=== PATIENT | male | born 1935 | race Caucasian/White ===

== ENCOUNTER 2017-02-05 06:06 | Inpatient (IN) | payer MEDICARE ==
[2017-02-05] MEDS ORDERED: Albuterol/Ipratropium NEB.SOL* Albuterol 2.5 MG/Ipratropium 0.5 MG 3 ML INH ONE ×2 (06:27→08:44)
[2017-02-05] MEDS ORDERED: methylPREDNISolone 125 MG* 2 ML VIAL IV ONE ×2 (06:27→08:44)
--- NOTE | 2017-02-05 06:37 | ED ---
Jaquelin Michel Matthew, scribed for Gt Madera MD on 02/05/17 at 0629 . Shortness of Breath - HPI Summary HPI Summary: An 82 y/o male presents to the ED with SOB since 01/31/17, which worsened yesterday. He has a Hx of COPD for the past 2 years. [facility], which will arrive this morning. Associated symptoms include productive cough yellow phlegm, which has been improving. He denies fever. The patient hasn't smoke in 50 years. - History of Current Complaint Time Seen by Provider: 02/05/17 06:19 Hx Obtained From: Patient Onset/Duration: Gradual Onset, Lasting Days, Still Present Timing: Constant Current Severity: Moderate Dyspnea At: Rest Associated Signs & Symptoms: Cough (Productive) - improving - Allergy/Home Medications Allergies/Adverse Reactions: Allergies Allergy/AdvReac Type Severity Reaction Status Date / Time Eggs or Egg-derived Products Allergy Unknown Verified 02/05/17 06:58 Reaction Details Home Medications: Home Medications Albuterol HFA INHALER* [Ventolin HFA Inhaler*] 2 puff INH QID PRN 02/05/17 [ History Confirmed 02/05/17] Aspirin EC Low Dose* [Ecotrin EC Low Dose 81 MG*] 81 mg PO DAILY 02/05/17 [ History Confirmed 02/05/17] Cefdinir cap (NF) [Cefdinir 300 MG cap (NF)] 300 mg PO BID 02/05/17 [History Confirmed 02/05/17] Cholecalciferol TAB* [Vitamin D TAB*] 2,000 units PO DAILY 02/05/17 [History Confirmed 02/05/17] Cyanocobalamin TAB* [Vitamin B12 TAB*] 1,000 mcg PO DAILY 02/05/17 [History Confirmed 02/05/17] Fluorouracil (Topical) [Fluorouracil] 0.5 % TOPICAL QPM 02/05/17 [History Confirmed 02/05/17] Hydrochlorothiazide TAB* [Hydrodiuril TAB*] 25 mg PO QAM 02/05/17 [History Confirmed 02/05/17] Melatonin (NF) [Meladox] 3 mg PO BEDTIME PRN 02/05/17 [History Confirmed ] Mometasone/Formoter 200/5 MDI* [Dulera 200/5 MDI*] 2 puff INH BID 02/05/17 [ History Confirmed 02/05/17] Multivitamins/Minerals TAB* [Theragran/minerals TAB*] 1 tab PO DAILY 02/05/17 [ History Confirmed 02/05/17] Potassium Chlor TAB* [Klor Con ER TAB*] 20 meq PO BID 02/05/17 [History Confirmed 02/05/17] Tiotropium CAP.INH* [Spiriva CAP.INH*] 1 cap.inh INH DAILY 02/05/17 [History Confirmed 02/05/17] amLODIPine TAB* [Norvasc 5 mg TAB*] 2.5 mg PO DAILY 02/05/17 [History Confirmed 02/05/17] PMH/Surg Hx/FS Hx/Imm Hx Cardiovascular History: Reports: Hx Hypertension Respiratory History: Reports: Hx Chronic Obstructive Pulmonary Disease (COPD) Infectious Disease History: No Infectious Disease History: Denies: Traveled Outside the [place] in Last 30 Days - Family History Known Family History: Positive: Hypertension Negative: Diabetes - Social History Alcohol Use: None Substance Use Type: Reports: None Smoking Status (MU): Former Smoker Review of Systems Constitutional: Negative Negative: Fever Eyes: Negative ENT: Negative Cardiovascular: Negative Positive: Shortness Of Breath, Cough - productive - yellow phlegm; improving since onset Gastrointestinal: Negative Genitourinary: Negative Musculoskeletal: Negative Skin: Negative Neurological: Negative Psychological: Normal All Other Systems Reviewed And Are Negative: Yes Physical Exam Triage Information Reviewed: Yes Vital Signs On Initial Exam: Initial Vitals Pulse Ox 93 02/05/17 06:12 Vital Signs Reviewed: Yes Appearance: Positive: Well-Appearing, No Pain Distress Skin: Positive: Warm Head/Face: Positive: Normal Head/Face Inspection Eyes: Positive: AMINTA ENT: Positive: Hearing grossly normal Neck: Positive: Supple Respiratory/Lung Sounds: Positive: Rhonchi - coarse, scattered, Wheezes - scattered exp Cardiovascular: Positive: Normal Abdomen Description: Positive: Nontender, Soft Bowel Sounds: Positive: Present Musculoskeletal: Positive: Strength/ROM Intact Neurological: Positive: Alert, Oriented to Person Place, Time Psychiatric: Positive: Affect/Mood Appropriate - Winder Coma Scale Coma Scale Total: 15 Diagnostics - Vital Signs Vital Signs Temp Pulse Resp BP Pulse Ox 02/05/17 06:21 97.5 F 93 20 145/75 93 02/05/17 06:12 93 - Laboratory Result Diagrams: 02/05/17 06:50 02/05/17 06:50 Lab Statement: Any lab studies that have been ordered have been reviewed, and results considered in the medical decision making process. Course/Dx - Diagnoses Provider Diagnoses: Pneumonia, COPD (chronic obstructive pulmonary disease), Hypoxia Discharge - Discharge Plan Condition: Stable Disposition: ADMITTED TO [facility] Discharge Disposition Comment: The patient is signed out to Dr. Madera pending lab results and CXR The documentation as recorded by the Jaquelin elliott Matthew accurately reflects the service I personally performed and the decisions made by Santy wagoner David, MD.
[2017-02-05 07:03] LABS: Hematocrit 49 % (42-52); Hemoglobin 16.6 g/dl (14.0-18.0); Mean Corpuscular HGB Conc 34 g/dl (31-36); Mean Corpuscular Hemoglobin 29 pg (27-31); Mean Corpuscular Volume 86 fL (80-94); Mean Platelet Volume 10 um3 (7.4-10.4); Red Blood Count 5.74 10^6/ul (4.0-5.4); Red Cell Distribution Width 14 % (10.5-15); White Blood Count 13.3 10^3/ul (3.5-10.8)
[2017-02-05 07:22] LABS: BUN/Creatinine Ratio 15.7 (8-20); Calcium 9.5 mg/dL (8.6-10.3); EGFR Non-African American 81.6 (>60); Globulin 3.2 g/dL (2-4); Total Protein 7.2 g/dL (6.4-8.9)
[2017-02-05 07:36] LABS: Potassium 2.7 mmol/L (3.5-5.0)
[2017-02-05] MEDS ORDERED: Potassium Chlor TAB* 20 MEQ TAB.ER PO ONE ×2 (07:37→11:23)
--- NOTE | 2017-02-05 07:59 | RAD ---
INDICATION: Shortness of breath and cough. COMPARISON: There are no prior studies available for comparison. TECHNIQUE: Dual-energy PA and lateral views of the chest were obtained. FINDINGS: The heart is within normal limits in size. Mediastinal and hilar contours appear within normal limits. The lungs are hyperinflated with flattening of the diaphragms consistent with chronic obstructive pulmonary disease. There are small bibasilar infiltrates. No pleural effusion is seen. There is a small nodular density which projects above the right lung base measuring 1.2 cm in size. This may represent a nipple shadow although a pulmonary nodule cannot be excluded. The results of this examination were discussed with Dr. Vargas. IMPRESSION: 1. COPD AND SMALL BIBASILAR INFILTRATES. 2. NIPPLE SHADOW VERSUS PULMONARY NODULE ON THE RIGHT SIDE NOTED ABOVE. RECOMMEND A REPEAT CHEST X-RAY STUDY WITH NIPPLE MARKERS OR A CT OF THE CHEST FOR FURTHER EVALUATION.
[2017-02-05] MEDS ORDERED: Azithromycin IV(*) 500 MG in NS 0.9% 250 ML* 250 ML IVPB ONE (08:43)
[2017-02-05] MEDS ORDERED: cefTRIAXone(*) 1 GM in NS 0.9% 50 ML* 50 ML IVPB ONE (08:43)
[2017-02-05 09:03] LABS: C Reactive Protein 33.03 mg/L (< 5.00)
[2017-02-05 09:08] LABS: Troponin I 0.01 ng/mL (<0.04)
--- NOTE | 2017-02-05 10:52 | ED ---
Paul Michel Auryana, lindseyibed for Rajan Vargas MD on 02/05/17 at 0844 . Progress - Progress Note Progress Note: Sign out form Dr. Madera at 07:00 pending CXR 82 year old male comes in with productive cough, wheezing, and increase SOB starting 5 days ago worse since last night. He denies any fevers. No nebulizer but has multiple inhalers. He is currently on HCT (diuretic), ASA, and recently started amlodipine for HTN. PMHx is significant for HTN and COPD with history of bronchitis. - Results/Orders Results/Orders: LABS: WBC elevated (13.3) Potassium low - 2.7 (states history - on 2 doses of potassium) CRP- elevated (33.03) CHEST X-RAY IMPRESSION: 1. COPD AND SMALL BIBASILAR INFILTRATES. 2. NIPPLE SHADOW VERSUS PULMONARY NODULE ON THE RIGHT SIDE NOTED ABOVE. RECOMMEND A REPEAT CHEST X-RAY STUDY WITH NIPPLE MARKERS OR A CT OF THE CHEST FOR FURTHER EVALUATION. EKG (08:24): NSR at 83 BPM. 08:41 provider in to see patient - will order IV ABX. Patient would prefer to be discharged if possible - will road test and assess condition/O2 sat to determine disposition 10:45 Road test - still symptomatic - EKG/XRAY/CT EKG: NSR - at 83 BPM Course/Dx - Course Course Of Treatment: IMPROVED IN ED. WHEN ATTEMPTED AMBULATION; O2 SAT 85% RA AND SOB. ADMIT HOSPITALIST STABLE. - Diagnoses Provider Diagnoses: Pneumonia, COPD (chronic obstructive pulmonary disease), Hypoxia - Provider Notifications Discussed Care Of Patient With: Dr. Stephens The documentation as recorded by the Paul elliott Auryana accurately reflects the service I personally performed and the decisions made by me, Rajan Vargas MD.
[2017-02-05] MEDS ORDERED: Acetaminophen TAB* 325 MG PO PRN (11:23)
[2017-02-05] MEDS ORDERED: Ondansetron INJ* 2 MG/ML VIAL IV PRN (11:23)
[2017-02-05] MEDS ORDERED: Albuterol 2.5 MG/3 ML NEB.SOL* (0.083%) INH PRN (11:23)
[2017-02-05] MEDS ORDERED: cefTRIAXone VIAL(*) 1,000 MG in NS 0.9% 50 ML* 50 ML IVPB SCH (11:24)
[2017-02-05] MEDS ORDERED: NS 0.9% 1000 ML* 1,000 ML IV SCH (11:30)
[2017-02-05] MEDS ORDERED: Iohexol 300* (CONTRAST) 10 ML SDV IV ONE (11:56)
[2017-02-05] MEDS ORDERED: Azithromycin IV(*) 500 MG in NS 0.9% 250 ML* 250 ML IVPB SCH (12:00)
[2017-02-05] MEDS: Albuterol/Ipratropium NEB.SOL* Albuterol 2.5 MG/Ipratropium 0.5 MG 3 ML INH SCH ×3 (12:09→21:45)
--- NOTE | 2017-02-05 12:27 | RAD ---
HISTORY: Cough, history of smoking COMPARISONS: Chest x-ray dated February 05, 2017 TECHNIQUE: Multiple contiguous axial CT scans of the chest were obtained with intravenous contrast. Coronal and sagittal multiplanar reformations are also submitted for review. FINDINGS: NECK AND THYROID: The lower neck and thyroid are unremarkable. CHEST WALL: There is no lower cervical, axillary, or supraclavicular lymphadenopathy by size criteria. HEART AND PERICARDIUM: The heart is unremarkable. AORTA AND PULMONARY VASCULATURE: The aorta and pulmonary vasculature are normal. MEDIASTINUM: There is no mediastinal lymphadenopathy by size criteria. CARLO: There is no hilar lymphadenopathy by size criteria. AIRWAY AND ESOPHAGUS: The airway is unremarkable, without endobronchial filling defect. The esophagus is grossly normal. LUNG PARENCHYMA: There is diffuse extensive centrilobular and panacinar emphysematous change. The density noted on chest x-ray corresponds to a nipple; however, there are other pulmonary parenchymal nodules described below: In the right middle lobe, there is a 0.6 cm nodule on axial image 39. On axial image 40, there is a 0.7 cm nodule of the right middle lobe. On axial image 50, there is a 0.5 cm nodule of the right lower lobe. On axial image 52, there is a 0.8 cm nodule of the right lower lobe PLEURA: No pleural abnormalities are noted. UPPER ABDOMEN: The upper abdomen is unremarkable. BONES AND SOFT TISSUES: Degenerative changes are noted of the spine OTHER: None. IMPRESSION: 1. EMPHYSEMA. 2. MULTIPLE PULMONARY PARENCHYMAL NODULES OF THE RIGHT MID AND LOWER LUNG MEASURING UP TO 0.8 CM IN SIZE. THE RECOMMENDATIONS FOR FOLLOWUP AND MANAGEMENT OF AN INCIDENTALLY DETECTED PULMONARY NODULE GREATER THAN 6 MM BUT LESS THAN OR EQUAL TO 8 MM IN SIZE, IN A PATIENT WITHOUT A HISTORY OF MALIGNANCY, INCLUDE FOLLOWUP CT IN 6-12 MONTHS, THEN AGAIN AT 18-24 MONTHS FOR A LOW-RISK PATIENT OR FOLLOWUP CT IN 3-6 MONTHS, THEN 9-12, THEN AGAIN AT 24 MONTHS FOR A HIGH RISK PATIENT. NOTES: SIZE = AVERAGE LENGTH AND WIDTH; HIGH RISK IS DEFINED A HISTORY OF SMOKING OR OTHER KNOW RISK FACTORS FOR LUNG CANCER; LOW RISK IS DEFINED MINIMAL OR ABSENT HISTORY OF SMOKING OR OTHER KNOWN RISK FACTORS. NODULES WITH A GROUND GLASS COMPONENT MAY REQUIRE LONGER FOLLOW UP TO EXCLUDE INDOLENT ADENOCARCINOMA.
--- NOTE | 2017-02-05 12:28 | HP ---
ADDENDUM TO HISTORY AND PHYSICAL * DATE OF ADMISSION: 02/05/2017. HISTORY OF PRESENT ILLNESS: Mr. Schneider is an 82-year-old male with a history of COPD who presented to the hospital complaining of shortness of breath and cough and has been diagnosed with COPD exacerbation and pneumonia. For further details of the patient's presentation, please see the history and physical dictated by Damien Brar NP on 02/05/2017 with which I agree. [id number]/[facility] #: [id number] [place]
[2017-02-05] MEDS ORDERED: NS 0.9% 250 ML* 250 ML ONE (15:06)
[2017-02-05] MEDS: Heparin VIAL(*) 5000 UNITS/ML VIAL (FIVE THOUSAND) SUBCUT SCH ×2 (15:11→20:50)
[2017-02-05] MEDS: predniSONE TAB* 20 MG PO SCH (15:11)
[2017-02-05] MEDS: amLODIPine TAB* 5 MG PO SCH (15:12)
[2017-02-05] MEDS: KCL 10 MEQ/50 ML IVPREMIX* 10 MEQ/50 ML BAG IV SCH ×3 (15:25→18:20)
[2017-02-05] MEDS ORDERED: KCL 10 MEQ/50 ML IVPREMIX* 10 MEQ/50 ML BAG ONE (18:16)
--- NOTE | 2017-02-05 21:23 | HP ---
ATTENDING PHYSICIAN'S ADDENDUM NOW INCLUDED ON THIS REPORT HISTORY AND PHYSICAL: DATE OF ADMISSION: 02/05/17 PRIMARY CARE PROVIDER: Dr. Ryan. MY ATTENDING PHYSICIAN WHILE IN THE HOSPITAL: Dr. Joleen Stephens * (report dictated by Andre Brar NP) CHIEF COMPLAINT: 1. Cough. 2. Shortness of breath. HISTORY OF PRESENT ILLNESS: Mr. Schneider is an 82-year-old male patient, who has a history of hypertension and COPD comes into the ER today stating that since last week, he started out having a sore throat, went to his primary. He says everything checked out fine there. He was doing well, but despite this, he had had progressive worsening symptoms throughout the week after seeing his primary last week, basically since last Saturday. He started out with cough on and Saturday, bringing up mucopurulent-type sputum, yellow in nature, then over the weekend, he got progressively more and more short of breath to the point where today he woke up in middle of the night feeling very winded in his words. He worsened when he had felt all weak. He summoned his daughter who lives with him and she brought him into the hospital. There have been no reports of arthralgias or myalgias. There have been no reports of fevers or chills, and he said it does hurt in his chest when he coughs. He says his appetite has been down. He has been feeling more weak. He has been trying to eat and drink as much as he can. However, despite this, he is still continuing not to improve. The patient was evaluated in the ER, ultimately it was found that he had an elevated white count. There was x-ray concerning for bilateral infiltrates and the hospitalist service was asked to evaluate for admission. PAST MEDICAL HISTORY: Significant for: 1. COPD. 2. Hypertension. PAST SURGICAL HISTORY: He has had eye surgery. MEDICATIONS: The home meds according to the list that we were provided include: 1. Albuterol 2 puffs by mouth 4 times a day as needed for shortness of breath. 2. Cefdinir 1 capsule by mouth t.i.d. 3. Fluorouracil 0.5% topical cream apply to scalp for 4 weeks x2 months. 4. Formoterol/mometasone 200 mcg 2 puffs twice a day. 5. Hydrochlorothiazide 1 tablet by mouth daily. 6. Potassium 20 mEq p.o. twice a day. 7. Spiriva 1 capsule inhaled daily. 8. Amlodipine 2.5 mg daily. 9. Aspirin 81 mg daily. 10. Vitamin D3 two tablets by mouth every day. 11. B12 1000 mcg p.o. by mouth daily. 12. Melatonin 1 capsule by mouth at bedtime. 13. Multivitamin 1 tablet daily. 14. Guaifenesin 1 capsule by mouth every 6 hours as needed for cough. ALLERGIES TO MEDICATIONS: Include no known drug allergies. FAMILY HISTORY: Both of his parents, he said, passed from old age. SOCIAL HISTORY: He is a former smoker. He quit about 50 years ago. He does not drink alcohol. He lives with his daughter, who is also a surrogate decision maker, and his niece. REVIEW OF SYSTEMS: There is no documented fever. He denied having any significant weight change. He denied having any chest pain with exception of the fact when he takes a deep breath. He did admit to having sore throat. He did admit to having cough. He does admit to shortness of breath particularly with exertion. There is no abdominal pain. No nausea, no vomiting. No dysuria , no frequency. No seizure, no loss of consciousness. No pruritus and no skin ulcerations. Review of 14 systems completed, all others negative. PHYSICAL EXAMINATION GENERAL: At this time, Mr. Schneider is an 82-year-old male patient. He appears to be well-nourished, well-developed. He is sitting in the ER stretcher. VITAL SIGNS: Reveal blood pressure 171/71 with a pulse of 92; respirations 15; his O2 sat on room air was 91%, with oxygen, he is right around 97% to 100%. HEENT: Head is atraumatic, normocephalic. Eyes: Sclerae are anicteric, not pale. NECK: Supple. Throat: Oral mucosa appears to be moist. No oropharyngeal erythema. LUNGS: Diminished throughout and no wheezes, rales, or rhonchi. HEART: Sounds S1, S2. Regular rate and rhythm. No murmurs, rubs, or gallops. ABDOMEN: Soft, flat, and nontender. Bowel sounds were present. EXTREMITIES: Pulses 2+ throughout. He is able to move all 4 extremities with 5 /5 strength. NEUROLOGIC: The patient is awake, alert, and oriented x3. Tongue midline. Pulp Refiner Operator were equal. No gross focal deficits. SKIN: Grossly intact. DIAGNOSTIC STUDIES/LAB DATA: Revealed a WBC 13.3, RBC of 5.74, hemoglobin 16.6 , hematocrit of 49, platelet count 207. Sodium of 136, potassium is 2.7, chloride 97, bicarb 27, BUN 14, creatinine 0.89, glucose 129, lactate 1.5, calcium 9.5. Total bili 1.0, AST 17, ALT 13, alk phos 73. Troponin is 0.01. CRP is 33. BNP of 37. Albumin of 4.0. There was a chest x-ray obtained today. Radiology read it as, impression: COPD with small basilar infiltrates. Nipple shadow versus pulmonary nodule on the right side as noted above. Recommended repeat chest x-ray study with nipple markers or CT of the chest for further evaluation. He did have an EKG, which showed normal sinus rhythm, rate of 83. No ST elevations or T-wave inversions were noted. No previous EKG for comparison. Old medical records were reviewed. ASSESSMENT AND PLAN: Ms. Schneider is an 82-year-old male patient coming into the ER today with complaints of sore throat, progressive worsening cough, in addition to this concern for bilateral infiltrates on chest x-ray. We were asked to evaluate for admission because of these findings. He will be admitted under inpatient status for: 1. Chronic obstructive pulmonary disease exacerbation with question of pneumonia. At this point, he does have a white count. He has been coughing. He has mucopurulent sputum, and x-ray does show only small basilar infiltrates. Our plan at this point is to go ahead and put him on azithromycin and ceftriaxone IV. We will get legionella and Strep pneumo antigens. We will get sputum culture if possible and we will check for flu as well. He does have a mild exacerbation of his chronic obstructive pulmonary disease. I will put him on steroid, prednisone, and standing nebulizers every 4 hours with p.r.n. albuterol and place him on Dulera. 2. Question of pulmonary nodule. Again, he does have a history of smoking, so I think it is warranted to go ahead and evaluate chest further with CT of the chest to make sure that there is definite nodule and to further characterize the infiltrates and we will follow up with this. 3. Hypertension. At this point, I will just continue the amlodipine. I think he is dehydrated, so I want to avoid the hydrochlorothiazide. 4. Hypokalemia. We will go ahead and replace this with p.o. potassium and IV potassium. 5. DVT prophylaxis. He is high risk. He will be placed on heparin subcu. 6. Code status. He wishes to be a full code. 7. Fluids, electrolytes, and nutrition. He can have a regular diet. TIME SPENT: On the admission was 50 minutes; greater than half the time was spent [id number] with the patient obtaining my history and physical, other half of the time spent going over the plan of care with the patient and implementing plan of care. I did discuss the plan of care with my attending, Dr. Stephens; she is in agreement. ANDRE BRAR NP ADDENDUM TO HISTORY AND PHYSICAL DATE OF ADMISSION: 02/05/2017. HISTORY OF PRESENT ILLNESS: Mr. Schneider is an 82-year-old male with a history of COPD who presented to the hospital complaining of shortness of breath and cough and has been diagnosed with COPD exacerbation and pneumonia. For further details of the patient's presentation, please see the history and physical dictated by Damien Brar NP on 02/05/2017 with which I agree. JOLEEN STEPHENS MD CC: Dr. Ryan* [id number]/[facility] #: [id number] [id number]/[facility] #: [id number] [place]
[2017-02-05] MEDS: Mometasone/Formoter 200/5 MDI INH SCH (21:44)
[2017-02-06] MEDS: Albuterol/Ipratropium NEB.SOL* Albuterol 2.5 MG/Ipratropium 0.5 MG 3 ML INH SCH ×6 (00:38→20:23)
[2017-02-06] MEDS: Heparin VIAL(*) 5000 UNITS/ML VIAL (FIVE THOUSAND) SUBCUT SCH ×3 (05:32→21:36)
[2017-02-06 05:38] LABS: Hematocrit 43 % (42-52); Hemoglobin 14.3 g/dl (14.0-18.0); Mean Corpuscular HGB Conc 33 g/dl (31-36); Mean Corpuscular Hemoglobin 29 pg (27-31); Mean Corpuscular Volume 87 fL (80-94); Mean Platelet Volume 9 um3 (7.4-10.4); Red Blood Count 4.98 10^6/ul (4.0-5.4); Red Cell Distribution Width 15 % (10.5-15); White Blood Count 14.7 10^3/ul (3.5-10.8)
[2017-02-06 05:54] LABS: BUN/Creatinine Ratio 23.2 (8-20); Calcium 8.7 mg/dL (8.6-10.3); EGFR African American 115.4 (>60); EGFR Non-African American 89.7 (>60); Potassium 3.6 mmol/L (3.5-5.0)
[2017-02-06] MEDS: Mometasone/Formoter 200/5 MDI INH SCH ×2 (07:17→20:23)
[2017-02-06] MEDS: Azithromycin IV(*) 500 MG in NS 0.9% 250 ML* 250 ML IVPB SCH (08:15)
[2017-02-06] MEDS: amLODIPine TAB* 5 MG PO SCH (08:16)
[2017-02-06] MEDS: Aspirin EC Low Dose* 81 MG TAB.EC PO SCH (08:16)
[2017-02-06] MEDS: predniSONE TAB* 20 MG PO SCH (08:16)
[2017-02-06] MEDS: cefTRIAXone VIAL(*) 1,000 MG in NS 0.9% 50 ML* 50 ML IVPB SCH (10:05)
--- NOTE | 2017-02-06 10:46 | PN ---
Subjective Date of Service: 02/06/17 Interval History: Patient seen and examined at bedside. Mr. Schneider reports feeling relatively well but "gets tired easily." He states that he became very short of breath this morning when performing his AM care in the bathroom. Denies CP, n/v. No other acute concerns. Family History: Unchanged from Admission Social History: Unchanged from Admission Past Medical History: Unchanged from Admission Objective Active Medications: Acetaminophen (Tylenol Tab*) 650 mg PO Q4H PRN PRN Reason: FEVER/PAIN Albuterol (Ventolin 2.5 Mg/3 Ml Neb.Digna*) 2.5 mg INH Q2H PRN PRN Reason: SOB/WHEEZING Albuterol/Ipratropium (Duoneb (Albuterol 2.5 Mg/Ipratropium 0.5 Mg)) 1 neb INH Q4H [facility] Last Admin: 02/06/17 07:17 Dose: 1 neb Amlodipine Besylate (Norvasc Tab*) 2.5 mg PO DAILY [facility] Last Admin: 02/06/17 08:16 Dose: 2.5 mg Aspirin (Aspirin Ec Low Dose*) 81 mg PO DAILY [facility] Last Admin: 02/06/17 08:16 Dose: 81 mg Heparin Sodium (Porcine) (Heparin Vial(*)) 5,000 units SUBCUT Q8HR [facility] Last Admin: 02/06/17 05:32 Dose: 5,000 units Sodium Chloride (Ns 0.9% 1000 Ml*) 1,000 mls @ 100 mls/hr IV PER RATE [facility] Last Admin: 02/05/17 19:57 Dose: 100 mls/hr Azithromycin 500 mg/ Sodium (Chloride) 250 mls @ 250 mls/hr IVPB 0900 [facility] Last Admin: 02/06/17 08:15 Dose: 250 mls/hr Ceftriaxone Sodium 1,000 mg/ (Sodium Chloride) 50 mls @ 200 mls/hr IVPB 1000 [facility] Last Admin: 02/06/17 10:05 Dose: 200 mls/hr Mometasone Furoate/Formoterol Fumar (Dulera 200/5 Mdi*) 2 puff INH BID [facility] Last Admin: 02/06/17 07:17 Dose: 2 puff Ondansetron HCl (Zofran Inj*) 4 mg IV Q6H PRN PRN Reason: NAUSEA Prednisone (Deltasone Tab*) 60 mg PO DAILY [facility] Last Admin: 02/06/17 08:16 Dose: 60 mg Vital Signs 02/05/17 02/05/17 02/05/17 11:30 12:12 12:18 Temperature 98.1 F Pulse Rate 93 99 104 Respiratory 17 22 20 Rate Blood Pressure 139/68 163/65 (mmHg) O2 Sat by Pulse 91 91 92 Oximetry 02/05/17 02/05/17 02/05/17 13:13 13:17 16:03 Temperature 98.1 F 97.6 F Pulse Rate 104 96 Respiratory 20 18 18 Rate Blood Pressure 163/65 169/65 (mmHg) O2 Sat by Pulse 92 95 Oximetry 02/05/17 02/05/17 02/05/17 16:29 19:19 20:00 Temperature 97.2 F Pulse Rate 93 95 Respiratory 20 22 20 Rate Blood Pressure 151/69 (mmHg) O2 Sat by Pulse 92 95 Oximetry 02/05/17 02/05/17 02/05/17 21:49 21:50 23:48 Temperature 97.3 F Pulse Rate 89 100 Respiratory 15 20 Rate Blood Pressure 118/55 (mmHg) O2 Sat by Pulse 96 98 95 Oximetry 02/06/17 02/06/17 02/06/17 03:38 07:15 07:20 Temperature 97.6 F Pulse Rate 83 85 92 Respiratory 20 24 16 Rate Blood Pressure 108/62 135/61 (mmHg) O2 Sat by Pulse 93 93 98 Oximetry 02/06/17 08:00 Temperature Pulse Rate Respiratory 17 Rate Blood Pressure (mmHg) O2 Sat by Pulse Oximetry Oxygen Devices in Use Now: None Appearance: Elderly male, sitting up in bed, NAD Eyes: PERRLA Ears/Nose/Mouth/Throat: Mucous Membranes Moist Neck: NL Appearance and Movements; NL JVP Respiratory: Symmetrical Chest Expansion and Respiratory Effort, - - prolonged expiratory phase, coarse lung sounds, diminished Cardiovascular: NL Sounds; No Murmurs; No JVD, RRR Abdominal: NL Sounds; No Tenderness; No Distention Extremities: No Edema Neurological: Alert and Oriented x 3 Lines/Tubes/Other Access: Clean, Dry and Intact Peripheral IV Nutrition: Taking PO's Result Diagrams: 02/06/17 05:31 02/06/17 05:31 Microbiology and Other Data: Microbiology 02/05/17 21:00 Legionella Urinary Antigen - Final Urine Negative Legionella Streptococcus pneumoniae Ag Screen - Final Negative S. pneumo Antigen 02/05/17 18:32 Influenza Types A,B Antigen ([facility]) - Final Nasal Specimen received for Influenza A/B Molecular testing Diagnostic Imaging: CXR: 1. COPD AND SMALL BIBASILAR INFILTRATES. 2. NIPPLE SHADOW VERSUS PULMONARY NODULE ON THE RIGHT SIDE NOTED ABOVE. RECOMMEND A REPEAT CHEST X-RAY STUDY WITH NIPPLE MARKERS OR A CT OF THE CHEST FOR FURTHER EVALUATION. CT CHEST: 1. EMPHYSEMA 2. MULTIPLE PULMONARY PARENCHYMAL NODULES OF THE RIGHT MID AND LOWER LUNG, MEASURING UP TO 0.8 CM IN SIZE EKG Data: EKG: NSR at 83 BPM. Assess/Plan/Problems-Billing Assessment: Mr. Schneider is an 82 yo male with PMH of COPD and HTN who presented to the ED on 02/05/17 with concern for cough and shortness of breath that is likely secondary to COPD exacerbation and pneumonia. - Patient Problems (1) COPD with exacerbation Code(s): J44.1 - CHRONIC OBSTRUCTIVE PULMONARY DISEASE W (ACUTE) EXACERBATION Comment: With leukocytosis and pneumonia Requiring supplemental O2 for hypoxia Continue prednisone, inhalers, nebulizers (2) Pneumonia Code(s): J18.9 - PNEUMONIA, UNSPECIFIED ORGANISM Comment: Community acquired - strep pneumo/legionella antigens negative CXR shows small bibasilar infiltrates. Continue ceftriaxone and azithromycin. Requiring oxygen supplementation to maintain O2 sats. Continue prednisone and supportive care. (3) Pulmonary nodule Code(s): R91.1 - SOLITARY PULMONARY NODULE Comment: Multiple pulmonary nodules seen on CT scan History significant for tobacco use Findings discussed with daughter and patient. Patient will need outpatient follow-up with biopsy and repeat CT. (4) Hypokalemia Code(s): E87.6 - HYPOKALEMIA Comment: S/p K+ replacement. Resolved. (5) Hypertension Code(s): I10 - ESSENTIAL (PRIMARY) HYPERTENSION Comment: Mostly normotensive. Continue amlodipine. Continue to hold HCTZ with acute illness. (6) DVT prophylaxis Code(s): [id number] - Comment: SQ heparin Status and Disposition: Inpatient admission. Anticipate LOS >2 days.
[2017-02-07] MEDS: Albuterol/Ipratropium NEB.SOL* Albuterol 2.5 MG/Ipratropium 0.5 MG 3 ML INH SCH ×6 (00:05→20:28)
[2017-02-07 05:12] LABS: Hematocrit 44 % (42-52); Hemoglobin 14.6 g/dl (14.0-18.0); Mean Corpuscular HGB Conc 33 g/dl (31-36); Mean Corpuscular Hemoglobin 29 pg (27-31); Mean Corpuscular Volume 87 fL (80-94); Mean Platelet Volume 10 um3 (7.4-10.4); Red Blood Count 5.08 10^6/ul (4.0-5.4); Red Cell Distribution Width 15 % (10.5-15)
[2017-02-07 05:19] LABS: BUN/Creatinine Ratio 30.4 (8-20); Calcium 8.8 mg/dL (8.6-10.3); EGFR African American 120.5 (>60); EGFR Non-African American 93.7 (>60); Potassium 3.3 mmol/L (3.5-5.0)
[2017-02-07] MEDS: Heparin VIAL(*) 5000 UNITS/ML VIAL (FIVE THOUSAND) SUBCUT SCH ×3 (06:08→21:13)
[2017-02-07] MEDS: Mometasone/Formoter 200/5 MDI INH SCH ×2 (08:12→20:28)
[2017-02-07] MEDS: Aspirin EC Low Dose* 81 MG TAB.EC PO SCH (08:33)
[2017-02-07] MEDS: Potassium Chlor TAB* 20 MEQ TAB.ER PO SCH ×2 (08:33→20:00)
[2017-02-07] MEDS: amLODIPine TAB* 5 MG PO SCH (08:33)
[2017-02-07] MEDS: predniSONE TAB* 20 MG PO SCH (08:33)
[2017-02-07] MEDS: Azithromycin IV(*) 500 MG in NS 0.9% 250 ML* 250 ML IVPB SCH (08:33)
[2017-02-07] MEDS: cefTRIAXone VIAL(*) 1,000 MG in NS 0.9% 50 ML* 50 ML IVPB SCH (10:30)
--- NOTE | 2017-02-07 10:38 | PN ---
Subjective Date of Service: 02/07/17 Interval History: Patient seen and examined at bedside. Denies CP. Reports improvement in breathing and cough. Recently took O2 off, wants to see how he does without O2 this AM. No other complaints. Family History: Unchanged from Admission Social History: Unchanged from Admission Past Medical History: Unchanged from Admission Objective Active Medications: Acetaminophen (Tylenol Tab*) 650 mg PO Q4H PRN PRN Reason: FEVER/PAIN Albuterol (Ventolin 2.5 Mg/3 Ml Neb.Digna*) 2.5 mg INH Q2H PRN PRN Reason: SOB/WHEEZING Albuterol/Ipratropium (Duoneb (Albuterol 2.5 Mg/Ipratropium 0.5 Mg)) 1 neb INH Q4H [facility] Last Admin: 02/07/17 08:12 Dose: 1 neb Amlodipine Besylate (Norvasc Tab*) 2.5 mg PO DAILY [facility] Last Admin: 02/07/17 08:33 Dose: 2.5 mg Aspirin (Aspirin Ec Low Dose*) 81 mg PO DAILY [facility] Last Admin: 02/07/17 08:33 Dose: 81 mg Heparin Sodium (Porcine) (Heparin Vial(*)) 5,000 units SUBCUT Q8HR [facility] Last Admin: 02/07/17 06:08 Dose: 5,000 units Sodium Chloride (Ns 0.9% 1000 Ml*) 1,000 mls @ 100 mls/hr IV PER RATE [facility] Last Admin: 02/05/17 19:57 Dose: 100 mls/hr Azithromycin 500 mg/ Sodium (Chloride) 250 mls @ 250 mls/hr IVPB 0900 [facility] Last Admin: 02/07/17 08:33 Dose: 250 mls/hr Ceftriaxone Sodium 1,000 mg/ (Sodium Chloride) 50 mls @ 200 mls/hr IVPB 1000 [facility] Last Admin: 02/07/17 10:30 Dose: 200 mls/hr Mometasone Furoate/Formoterol Fumar (Dulera 200/5 Mdi*) 2 puff INH BID [facility] Last Admin: 02/07/17 08:12 Dose: 2 puff Ondansetron HCl (Zofran Inj*) 4 mg IV Q6H PRN PRN Reason: NAUSEA Potassium Chloride (Klor Con Er Tab*) 20 meq PO BID [facility] Last Admin: 02/07/17 08:33 Dose: 20 meq Prednisone (Deltasone Tab*) 40 mg PO DAILY [facility] Last Admin: 02/07/17 08:33 Dose: 40 mg Vital Signs 02/06/17 02/06/17 02/06/17 11:09 11:11 11:40 Temperature 97.5 F 97.8 F Pulse Rate 86 94 Respiratory 16 Rate Blood Pressure 122/57 (mmHg) O2 Sat by Pulse 98 93 Oximetry 02/06/17 02/06/17 02/06/17 15:23 15:50 19:44 Temperature 97.6 F 97.9 F Pulse Rate 93 101 85 Respiratory 16 22 20 Rate Blood Pressure 140/51 116/53 (mmHg) O2 Sat by Pulse 99 92 96 Oximetry 02/06/17 02/06/17 02/06/17 20:00 20:26 20:29 Temperature Pulse Rate 86 83 Respiratory 20 Rate Blood Pressure (mmHg) O2 Sat by Pulse 98 95 Oximetry 02/07/17 02/07/17 02/07/17 00:08 00:09 00:20 Temperature 97.4 F Pulse Rate 89 82 Respiratory 18 Rate Blood Pressure 125/59 (mmHg) O2 Sat by Pulse 98 95 96 Oximetry 02/07/17 02/07/17 02/07/17 04:15 07:09 08:15 Temperature 97.6 F Pulse Rate 78 80 73 Respiratory 20 16 Rate Blood Pressure 139/69 (mmHg) O2 Sat by Pulse 98 95 93 Oximetry Oxygen Devices in Use Now: None Appearance: Elderly male, lying in bed, NAD Eyes: PERRLA Ears/Nose/Mouth/Throat: Mucous Membranes Moist Neck: NL Appearance and Movements; NL JVP Respiratory: Symmetrical Chest Expansion and Respiratory Effort, - - diminished lung sounds, prolonged exp phase Cardiovascular: NL Sounds; No Murmurs; No JVD, RRR Abdominal: NL Sounds; No Tenderness; No Distention Extremities: No Edema Neurological: Alert and Oriented x 3, NL Muscle Strength and Tone Lines/Tubes/Other Access: Clean, Dry and Intact Peripheral IV Nutrition: Taking PO's Result Diagrams: 02/07/17 04:37 02/07/17 04:37 Microbiology and Other Data: Microbiology 02/05/17 21:00 Legionella Urinary Antigen - Final Urine Negative Legionella Streptococcus pneumoniae Ag Screen - Final Negative S. pneumo Antigen 02/05/17 18:32 Influenza Types A,B Antigen (KANA) - Final Nasal Specimen received for Influenza A/B Molecular testing Diagnostic Imaging: CXR: 1. COPD AND SMALL BIBASILAR INFILTRATES. 2. NIPPLE SHADOW VERSUS PULMONARY NODULE ON THE RIGHT SIDE NOTED ABOVE. RECOMMEND A REPEAT CHEST X-RAY STUDY WITH NIPPLE MARKERS OR A CT OF THE CHEST FOR FURTHER EVALUATION. CT CHEST: 1. EMPHYSEMA 2. MULTIPLE PULMONARY PARENCHYMAL NODULES OF THE RIGHT MID AND LOWER LUNG, MEASURING UP TO 0.8 CM IN SIZE EKG Data: EKG: NSR at 83 BPM. Assess/Plan/Problems-Billing Assessment: Mr. Schneider is an 82 yo male with PMH of COPD and HTN who presented to the ED on 02/05/17 with concern for cough and shortness of breath that is likely secondary to COPD exacerbation and pneumonia. - Patient Problems (1) Leukocytosis Code(s): D72.829 - ELEVATED WHITE BLOOD CELL COUNT, UNSPECIFIED Comment: Improving clinically, afebrile Suspect secondary to prednisone Continue to trend (2) COPD with exacerbation Code(s): J44.1 - CHRONIC OBSTRUCTIVE PULMONARY DISEASE W (ACUTE) EXACERBATION Comment: With leukocytosis and pneumonia Pt weaned from O2 this morning, continue to monitor for hypoxia Continue prednisone, inhalers, nebulizers (3) Pneumonia Code(s): J18.9 - PNEUMONIA, UNSPECIFIED ORGANISM Comment: Community acquired - strep pneumo/legionella antigens negative CXR shows small bibasilar infiltrates. Continue ceftriaxone and azithromycin. Continue prednisone and supportive care. (4) Pulmonary nodule Code(s): R91.1 - SOLITARY PULMONARY NODULE Comment: Multiple pulmonary nodules seen on CT scan History significant for tobacco use Findings discussed with daughter and patient. Patient will need outpatient follow-up with biopsy and repeat CT. (5) Hypokalemia Code(s): E87.6 - HYPOKALEMIA Comment: Chronic issue, per patient Continue home potassium replacement BID (6) Hypertension Code(s): I10 - ESSENTIAL (PRIMARY) HYPERTENSION Comment: Mostly normotensive. Continue amlodipine. Continue to hold HCTZ with acute illness. (7) DVT prophylaxis Code(s): [id number] - Comment: SQ heparin Status and Disposition: Inpatient admission. Anticipate LOS >2 days.
[2017-02-08] MEDS: Albuterol/Ipratropium NEB.SOL* Albuterol 2.5 MG/Ipratropium 0.5 MG 3 ML INH SCH ×4 (00:09→11:12)
[2017-02-08 05:30] LABS: Hematocrit 46 % (42-52); Hemoglobin 14.9 g/dl (14.0-18.0); Mean Corpuscular HGB Conc 33 g/dl (31-36); Mean Corpuscular Hemoglobin 28 pg (27-31); Mean Corpuscular Volume 87 fL (80-94); Mean Platelet Volume 9 um3 (7.4-10.4); Red Blood Count 5.24 10^6/ul (4.0-5.4); Red Cell Distribution Width 15 % (10.5-15); White Blood Count 14.3 10^3/ul (3.5-10.8)
[2017-02-08] MEDS: Heparin VIAL(*) 5000 UNITS/ML VIAL (FIVE THOUSAND) SUBCUT SCH (05:38)
[2017-02-08 05:39] LABS: Add Diff/Slide Review? Slide Review Added; Comments Flag Yes
[2017-02-08 05:43] LABS: Calcium 8.7 mg/dL (8.6-10.3); EGFR African American 134.1 (>60); EGFR Non-African American 104.3 (>60); Potassium 3.6 mmol/L (3.5-5.0)
[2017-02-08 07:40] VITALS: BP 157/72
[2017-02-08] MEDS ORDERED: NS 0.9% 250 ML* 250 ML ONE (07:42)
[2017-02-08] MEDS: Mometasone/Formoter 200/5 MDI INH SCH (07:45)
[2017-02-08] MEDS: Aspirin EC Low Dose* 81 MG TAB.EC PO SCH (07:50)
[2017-02-08] MEDS: amLODIPine TAB* 5 MG PO SCH (07:50)
[2017-02-08] MEDS: Potassium Chlor TAB* 20 MEQ TAB.ER PO SCH (07:50)
[2017-02-08] MEDS: predniSONE TAB* 20 MG PO SCH (07:50)
[2017-02-08] MEDS: Azithromycin IV(*) 500 MG in NS 0.9% 250 ML* 250 ML IVPB SCH (07:51)
[2017-02-08] MEDS: cefTRIAXone VIAL(*) 1,000 MG in NS 0.9% 50 ML* 50 ML IVPB SCH (09:08)
--- NOTE | 2017-02-08 10:32 | DCNOTE ---
Subjective Date of Service: 02/08/17 Interval History: Patient seen and examined at bedside. Mr. Schneider was weaned off O2 yesterday but then required supplemental O2 later in the day. This AM, patient off O2 for most of the morning and doing well. He reports walking in the room and doing AM care without using oxygen. Denies feeling SOB or chest pain. Is hopeful to go home. No other acute complaints. Family History: Unchanged from Admission Social History: Unchanged from Admission Past Medical History: Unchanged from Admission Objective Active Medications: Acetaminophen (Tylenol Tab*) 650 mg PO Q4H PRN PRN Reason: FEVER/PAIN Albuterol (Ventolin 2.5 Mg/3 Ml Neb.Digna*) 2.5 mg INH Q2H PRN PRN Reason: SOB/WHEEZING Albuterol/Ipratropium (Duoneb (Albuterol 2.5 Mg/Ipratropium 0.5 Mg)) 1 neb INH Q4H [facility] Last Admin: 02/08/17 07:46 Dose: 1 neb Amlodipine Besylate (Norvasc Tab*) 2.5 mg PO DAILY [facility] Last Admin: 02/08/17 07:50 Dose: 2.5 mg Aspirin (Aspirin Ec Low Dose*) 81 mg PO DAILY [facility] Last Admin: 02/08/17 07:50 Dose: 81 mg Heparin Sodium (Porcine) (Heparin Vial(*)) 5,000 units SUBCUT Q8HR [facility] Last Admin: 02/08/17 05:38 Dose: 5,000 units Sodium Chloride (Ns 0.9% 1000 Ml*) 1,000 mls @ 100 mls/hr IV PER RATE [facility] Last Admin: 02/05/17 19:57 Dose: 100 mls/hr Azithromycin 500 mg/ Sodium (Chloride) 250 mls @ 250 mls/hr IVPB 0900 [facility] Last Admin: 02/08/17 07:51 Dose: 250 mls/hr Ceftriaxone Sodium 1,000 mg/ (Sodium Chloride) 50 mls @ 200 mls/hr IVPB 1000 [facility] Last Admin: 02/08/17 09:08 Dose: 200 mls/hr Mometasone Furoate/Formoterol Fumar (Dulera 200/5 Mdi*) 2 puff INH BID [facility] Last Admin: 02/08/17 07:45 Dose: 2 puff Ondansetron HCl (Zofran Inj*) 4 mg IV Q6H PRN PRN Reason: NAUSEA Potassium Chloride (Klor Con Er Tab*) 20 meq PO BID [facility] Last Admin: 02/08/17 07:50 Dose: 20 meq Prednisone (Deltasone Tab*) 40 mg PO DAILY [facility] Last Admin: 02/08/17 07:50 Dose: 40 mg Vital Signs 02/07/17 02/07/17 02/07/17 11:29 11:55 11:56 Temperature 97.8 F Pulse Rate 85 80 Respiratory 16 23 Rate Blood Pressure 135/65 (mmHg) O2 Sat by Pulse 93 91 91 Oximetry 02/07/17 02/07/17 02/07/17 15:28 16:27 20:00 Temperature 98.4 F Pulse Rate 88 84 Respiratory 20 16 17 Rate Blood Pressure 166/74 (mmHg) O2 Sat by Pulse 92 94 Oximetry 02/07/17 02/07/17 02/07/17 20:32 20:35 21:55 Temperature Pulse Rate 91 88 78 Respiratory Rate Blood Pressure 142/75 (mmHg) O2 Sat by Pulse 98 94 Oximetry 02/07/17 02/08/17 02/08/17 23:18 00:11 04:41 Temperature 98.2 F Pulse Rate 80 85 89 Respiratory 20 Rate Blood Pressure 153/76 (mmHg) O2 Sat by Pulse 92 97 98 Oximetry 02/08/17 02/08/17 07:33 08:00 Temperature 97.5 F Pulse Rate 71 81 Respiratory 22 18 Rate Blood Pressure 157/72 (mmHg) O2 Sat by Pulse 93 94 Oximetry Oxygen Devices in Use Now: None Appearance: Elderly male, lying in bed, NAD Eyes: PERRLA Ears/Nose/Mouth/Throat: Mucous Membranes Moist Neck: NL Appearance and Movements; NL JVP Respiratory: Symmetrical Chest Expansion and Respiratory Effort, - - diminished Cardiovascular: NL Sounds; No Murmurs; No JVD, RRR Abdominal: NL Sounds; No Tenderness; No Distention Extremities: No Edema Skin: No Rash or Ulcers Neurological: Alert and Oriented x 3, NL Gait, NL Muscle Strength and Tone Lines/Tubes/Other Access: Clean, Dry and Intact Peripheral IV Nutrition: Taking PO's Result Diagrams: 02/08/17 05:00 02/08/17 05:00 Microbiology and Other Data: Microbiology 02/05/17 21:00 Legionella Urinary Antigen - Final Urine Negative Legionella Streptococcus pneumoniae Ag Screen - Final Negative S. pneumo Antigen 02/05/17 18:32 Influenza Types A,B Antigen (KANA) - Final Nasal Specimen received for Influenza A/B Molecular testing Diagnostic Imaging: CXR: 1. COPD AND SMALL BIBASILAR INFILTRATES. 2. NIPPLE SHADOW VERSUS PULMONARY NODULE ON THE RIGHT SIDE NOTED ABOVE. RECOMMEND A REPEAT CHEST X-RAY STUDY WITH NIPPLE MARKERS OR A CT OF THE CHEST FOR FURTHER EVALUATION. CT CHEST: 1. EMPHYSEMA 2. MULTIPLE PULMONARY PARENCHYMAL NODULES OF THE RIGHT MID AND LOWER LUNG, MEASURING UP TO 0.8 CM IN SIZE EKG Data: EKG: NSR at 83 BPM. Assess/Plan/Problems-Billing Assessment: Mr. Schneider is an 82 yo male with PMH of COPD and HTN who presented to the ED on 02/05/17 with concern for cough and shortness of breath that is likely secondary to COPD exacerbation and pneumonia. - Patient Problems (1) Leukocytosis Code(s): D72.829 - ELEVATED WHITE BLOOD CELL COUNT, UNSPECIFIED Comment: Improving clinically, afebrile Suspect secondary to prednisone Outpatient CBC with PCP follow-up. (2) COPD with exacerbation Code(s): J44.1 - CHRONIC OBSTRUCTIVE PULMONARY DISEASE W (ACUTE) EXACERBATION Comment: With leukocytosis and pneumonia Patient maintaining O2 sats >90% on RA Continue prednisone, inhalers, nebulizers Outpatient nebulizer for PRN use at home (3) Pneumonia Code(s): J18.9 - PNEUMONIA, UNSPECIFIED ORGANISM Comment: Community acquired - strep pneumo/legionella antigens negative CXR shows small bibasilar infiltrates. Continue ceftriaxone and azithromycin. Switch ceftriaxone to PO cefpodoxime. Continue prednisone and supportive care. Outpatient f/u with PCP next week. (4) Pulmonary nodule Code(s): R91.1 - SOLITARY PULMONARY NODULE Comment: Multiple pulmonary nodules seen on CT scan History significant for tobacco use Findings discussed with daughter and patient. Patient will need outpatient follow-up with biopsy and repeat CT. (5) Hypokalemia Code(s): E87.6 - HYPOKALEMIA Comment: Stable. Chronic issue, per patient Continue home potassium replacement BID (6) Hypertension Code(s): I10 - ESSENTIAL (PRIMARY) HYPERTENSION Comment: Mostly normotensive. Continue amlodipine. Restart HCTZ. (7) DVT prophylaxis Code(s): [id number] - Comment: SQ heparin Status and Disposition: Inpatient admission. D/c to home.
[2017-02-08] MEDS ORDERED: guaiFENesin ER TAB 600 MG PO SCH (11:00)
[2017-02-08] MEDS ORDERED: Tiotropium CAP.INH* CAP.INH/18 MCG INH SCH (11:00)
[2017-02-08] MEDS ORDERED: Hydrochlorothiazide TAB* 25 MG PO SCH (11:00)
[2017-02-08] MEDS ORDERED: Spiriva Inhaler DEVICE* 1 EACH DEVICE ONE (11:00)
--- NOTE | 2017-02-10 02:06 | DS ---
MEDICINE DISCHARGE SUMMARY: DATE OF ADMISSION: 02/05/17 DATE OF DISCHARGE: 02/08/17 PROVIDER: Dae Trejo NP ATTENDING PHYSICIAN: Dr. Gilbert Fox *(as dictated by Dae Trejo NP) PRIMARY CARE PROVIDER: Dr. Jason. PRIMARY DISCHARGE DIAGNOSES: 1. Chronic obstructive pulmonary disease exacerbation. 2. Community-acquired pneumonia. 3. Pulmonary nodule on CT. 4. Hypokalemia. SECONDARY DISCHARGE DIAGNOSES: 1. Chronic obstructive pulmonary disease. 2. Hypertension. HOME MEDICATIONS AT DISCHARGE: 1. Multivitamin 1 tab daily. 2. Melatonin 3 mg at bedtime p.r.n. 3. Cyanocobalamin 1000 mcg daily. 4. Cholecalciferol 2000 units daily. 5. Amlodipine 2.5 mg daily. 6. Aspirin 81 mg daily. 7. Tiotropium 1 capsule inhaled daily. 8. Potassium chloride 20 mEq b.i.d. 9. Dulera 200/5 two puffs inhaled b.i.d. 10. Hydrochlorothiazide 25 mg q.a.m. 11. Fluorouracil topical daily. 12. Albuterol inhaler 2 puffs inhaled four times a day p.r.n. 13. Prednisone 40 mg daily x2 additional days. 14. Guaifenesin 1200 mg b.i.d. 15. Cefpodoxime 200 mg b.i.d. 16. Azithromycin 250 mg x2 additional days. 17. Albuterol 2.5 mg inhaled q.4 hours p.r.n. HOSPITAL COURSE OF STAY: For full details, please refer to the H and P provided by Andre Brar NP, on 02/05/17. In summary, Mr. Schneider is an 82-year- old male, who presented to the hospital on 02/05/17 with concern for cough and shortness of breath. The patient was found to have elevated white count and x- ray concerning for bilateral infiltrates. His chest x-ray was concerned for a pulmonary nodule that was inconclusive. A CT of the chest was ordered, which did show that the patient does have multiple pulmonary parenchymal nodules of the right mid and lower lung measuring up to 0.8 cm in size. The recommendation for followup and management of an incidentally detected pulmonary nodule greater than 6 but less than or equal to 8 mm in size in a patient without a history of malignancy includes followup CT in 6 to 12 months, then, again at 18 or 24 months for a low-risk patient; followup CT in 3 to 6 months, then 9 or 12, then again at 24 months for high-risk patient. The patient was admitted and started on ceftriaxone and azithromycin. He was also started on prednisone. The patient was requiring supplement O2 upon admission, but was able to be weaned off the O2 prior to discharge. Resting and ambulating oxygen saturation showed an O2 sat above 90%. The patient was prescribed a nebulizer which he can use at home, as he does still get dyspneic with exertion. In regards to his pulmonary nodule, the patient was notified of this and was advised to follow up with his PCP in order to arrange outpatient followup with Pulmonology for biopsy as well as followup CT scans. The patient and his daughter verbalized understanding of this. The patient also has some issues with hypokalemia here in the hospital. He states that this is chronic and takes b.i.d. potassium at home. No other acute concerns during this stay. The patient was switched to cefpodoxime and azithromycin for completion of the antibiotic dose. The patient has received two more doses of azithromycin, which was sent to [facility] as well as which he should continue for another 7 days. CONCERNS AT DISCHARGE: Mr. Schneider will be discharged to home on 02/08/17 and should follow up with his PCP. A service planner is assisting in arranging this. DIET: Heart-healthy diet. ACTIVITY: As tolerated. CONDITION: Stable. FOLLOWUP TESTS UPON DISCHARGE: The patient did have persistent leukocytosis that was most likely secondary to steroid use. The patient is advised to have his blood drawn on Saturday, February 12, for a followup CBC and results sent to his PCP. The patient is also to follow up with his PCP regarding the pulmonary nodules. DISPOSITION: To home. TIME SPENT: Time spent on this discharge is approximately 45 minutes. Again, this is only a brief summary of the patient's hospital course of stay. For full details, please refer to the full medical record. If you have any further questions or need further assistance, please feel free to contact me at [phone]. DAE TREJO NP CC: Dr. Jason* [id number]/[facility] #: [id number] [facility] CENTERJessica
== END 2017-02-08 12:34 | disposition home or self-care (01) | DRG 190 ==
LOC: ED 06:06 → ICU 11:20 → MEDTELE 12:39
PROVIDERS: ADMIT Internal Medicine; ATTEND Internal Medicine
DX: J44.0 Chronic obstructive pulmonary disease with (acute) lower respiratory infection (principal); J18.9 Pneumonia, unspecified organism; I10 Essential (primary) hypertension; J44.1 Chronic obstructive pulmonary disease with (acute) exacerbation; R09.02 Hypoxemia; Z91.012 Allergy to eggs; Z82.49 Family history of ischemic heart disease and other diseases of the circulatory system; Z87.891 Personal history of nicotine dependence; E87.6 Hypokalemia; R91.1 Solitary pulmonary nodule; Z79.82 Long term (current) use of aspirin; Z79.52 Long term (current) use of systemic steroids
CPT/HCPCS: 36415; 71020; 71260; 80048; 80053; 83605; 83880; 84484; 85025; 85610; 86140; 87040; 87070; 87205; 87502; 87899; 93005; 94640; 94760; 94762; A9270-GY; J0456; J0696; J1644; J2930; J3480; J7512; Q9967

== ENCOUNTER 2017-07-31 18:22 | Inpatient (IN) | payer MEDICARE ==
[2017-07-31] MEDS ORDERED: methylPREDNISolone 125 MG* 2 ML VIAL IV ONE (18:51)
[2017-07-31] MEDS ORDERED: Albuterol 2.5 MG/3 ML NEB.SOL* (0.083%) INH ONE (18:51)
[2017-07-31] MEDS ORDERED: Ipratropium 0.5MG/2.5ML NEB* 0.5 MG/2.5 ML NEB.SOLN INH ONE (18:51)
[2017-07-31 19:44] LABS: Hematocrit 47 % (42-52); Hemoglobin 16.2 g/dl (14.0-18.0); Mean Corpuscular HGB Conc 34 g/dl (31-36); Mean Corpuscular Hemoglobin 30 pg (27-31); Mean Corpuscular Volume 86 fL (80-94); Mean Platelet Volume 9 um3 (7.4-10.4); Red Blood Count 5.51 10^6/ul (4.0-5.4); Red Cell Distribution Width 14 % (10.5-15)
[2017-07-31] MEDS ORDERED: cefTRIAXone(*) 1 GM in NS 0.9% 50 ML* 50 ML IVPB ONE (19:47)
--- NOTE | 2017-07-31 19:47 | RAD ---
HISTORY: Difficulty breathing, rule out pneumonia COMPARISONS: July 25, 2017 VIEWS: 1: frontal portable view of the chest at 7:17 PM FINDINGS: LINES AND TUBES: None. CARDIOMEDIASTINAL SILHOUETTE: The cardiomediastinal silhouette is normal for portable technique. PLEURA: The costophrenic angles are sharp. No pleural abnormalities are noted. LUNG PARENCHYMA: There is hyperinflation. There is patchy alveolar opacification of left lung base ABDOMEN: The upper abdomen is clear. There is no subphrenic gas. BONES AND SOFT TISSUES: No bone or soft tissue abnormalities are noted. IMPRESSION: 1. COPD. 2. PATCHY LEFT BASILAR ATELECTASIS VERSUS CONSOLIDATION. RECOMMEND FOLLOW-UP UNTIL RESOLUTION TO EXCLUDE UNDERLYING PULMONARY PARENCHYMAL PATHOLOGY.
[2017-07-31] MEDS ORDERED: Azithromycin IV(*) 500 MG in NS 0.9% 250 ML* 250 ML IVPB ONE ×2 (19:49→20:00)
[2017-07-31 19:59] LABS: BUN/Creatinine Ratio 11.3 (8-20); Calcium 9.7 mg/dL (8.6-10.3); EGFR African American 118.7 (>60); EGFR Non-African American 92.3 (>60); Globulin 3.3 g/dL (2-4); Potassium 3.2 mmol/L (3.5-5.0); Total Bilirubin 1.3 mg/dL (0.2-1.0); Total Protein 7.3 g/dL (6.4-8.9)
[2017-07-31 20:00] LABS: Troponin I 0.01 ng/mL (<0.04)
[2017-07-31 20:01] LABS: Add Diff/Slide Review? Slide Review Added; Comments Flag Yes
[2017-07-31] MEDS ORDERED: Potassium Chlor TAB* 20 MEQ TAB.ER PO ONE (20:04)
--- NOTE | 2017-07-31 21:01 | ED ---
Cornell Michel Angela, scribed for Reji Paz MD on 07/31/17 at 1847 . Shortness of Breath - HPI Summary HPI Summary: This pt is an 82 y/o male accompanied by his daughter [facility] [place]3 days, worsening today. Pt notes his cough is productive with yellow sputum. He has dyspnea at rest. He states using his inhaler a lot today every 1 hour. He denies fever, chest pain. Pt denies pain with deep breathing. Pt's PCP is Dr. Jason. 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 Pt is not on home oxygen. Pt denies any cardiac stents, CHF, blood clots. 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 Pt is a former smoker (quit 50 years ago). - History of Current Complaint Chief Complaint: EDShortnessOfBreath Hx Obtained From: Patient Onset/Duration: Lasting Days, Still Present Timing: Constant Dyspnea At: Rest Associated Signs & Symptoms: Cough (Productive) - Allergy/Home Medications Allergies/Adverse Reactions: Allergies Allergy/AdvReac Type Severity Reaction Status Date / Time Eggs or Egg-derived Products Allergy Unknown Verified 02/05/17 06:58 Reaction Details PMH/Surg Hx/FS Hx/Imm Hx Cardiovascular History: Reports: Hx Hypertension Respiratory History: Reports: Hx Chronic Obstructive Pulmonary Disease (COPD), Hx Pneumonia Sensory History: Denies: Hx Contacts or Glasses, Hx Hearing Aid Opthamlomology History: Denies: Hx Contacts or Glasses Infectious Disease History: No Infectious Disease History: Denies: Traveled Outside the [place] in Last 30 Days - Family History Known Family History: Positive: Hypertension Negative: Diabetes - Social History Alcohol Use: None Substance Use Type: Reports: None Smoking Status (MU): Former Smoker Review of Systems Negative: Fever, Chills Negative: Chest Pain Positive: Shortness Of Breath, Cough - productive Negative: Abdominal Pain Genitourinary: Negative Musculoskeletal: Negative All Other Systems Reviewed And Are Negative: Yes Physical Exam - Summary Physical Exam Summary: Appearance: Well-appearing. Pt is slightly cachectic in appearance. Skin: Warm Eyes: Normal ENT: Normal Neck: Supple, nontender Respiratory: Diminished breath sounds bilaterally. Cardiovascular: Normal heart sounds. Abdomen: Soft. No abdominal tenderness. Bowel: Present Musculoskeletal: Normal, Strength/ROM Intact. There is no LE edema. Good pulses in UE and LE bilaterally. Neurological: Normal, A&Ox3 Psychiatric: Normal Triage Information Reviewed: Yes Vital Signs On Initial Exam: Initial Vitals Temp Pulse Resp BP Pulse Ox 98.6 F 123 28 175/85 87 07/31/17 18:23 07/31/17 18:23 07/31/17 18:23 07/31/17 18:23 07/31/17 18:23 Vital Signs Reviewed: Yes Diagnostics - Vital Signs Vital Signs Temp Pulse Resp BP Pulse Ox 07/31/17 18:23 98.6 F 123 28 175/85 87 - Laboratory Lab Results: Lab Results 07/31/17 07/31/17 07/31/17 Range/Units 19:34 19:34 19:34 WBC 25.0 H (3.5-10.8) 10^3/ul RBC 5.51 H (4.0-5.4) 10^6/ul Hgb 16.2 (14.0-18.0) g/dl Hct 47 (42-52) % MCV 86 (80-94) fL MCH 30 (27-31) pg MCHC 34 (31-36) g/dl RDW 14 (10.5-15) % Plt Count 261 (150-450) 10^3/ul MPV 9 (7.4-10.4) um3 Neut % (Auto) 92.0 H (38-83) % Lymph % (Auto) 2.3 L (25-47) % [place] % (Auto) 5.5 (1-9) % Eos % (Auto) 0.1 (0-6) % Baso % (Auto) 0.1 (0-2) % Absolute Neuts (auto) 23.0 H (1.5-7.7) 10^3/ul Absolute Lymphs (auto) 0.6 L (1.0-4.8) 10^3/ul Absolute Monos (auto) 1.4 H (0-0.8) 10^3/ul Absolute Eos (auto) 0 (0-0.6) 10^3/ul Absolute Basos (auto) 0 (0-0.2) 10^3/ul Absolute Nucleated RBC 0 10^3/ul Nucleated RBC % 0 INR (Anticoag Therapy) (0.89-1.11) Sodium 129 L (133-145) mmol/L Potassium 3.2 L (3.5-5.0) mmol/L Chloride 96 L (101-111) mmol/L Carbon Dioxide 23 (22-32) mmol/L Anion Gap 10 (2-11) mmol/L BUN 9 (6-24) mg/dL Creatinine 0.80 (0.67-1.17) mg/dL Est GFR ( Amer) 118.7 (>60) Est GFR (Non-Af Amer) 92.3 (>60) BUN/Creatinine Ratio 11.3 (8-20) Glucose 130 H (70-100) mg/dL Lactic Acid 1.1 (0.5-2.0) mmol/L Calcium 9.7 (8.6-10.3) mg/dL Total Bilirubin 1.30 H (0.2-1.0) mg/dL AST 14 (13-39) U/L ALT 10 (7-52) U/L Alkaline Phosphatase 69 (34-104) U/L Troponin I 0.01 (<0.04) ng/mL B-Natriuretic Peptide ( - 100) pg/mL Total Protein 7.3 (6.4-8.9) g/dL Albumin 4.0 (3.2-5.2) g/dL Globulin 3.3 (2-4) g/dL Albumin/Globulin Ratio 1.2 (1-3) 07/31/17 07/31/17 Range/Units 19:34 19:34 WBC (3.5-10.8) 10^3/ul RBC (4.0-5.4) 10^6/ul Hgb (14.0-18.0) g/dl Hct (42-52) % MCV (80-94) fL MCH (27-31) pg MCHC (31-36) g/dl RDW (10.5-15) % Plt Count (150-450) 10^3/ul MPV (7.4-10.4) um3 Neut % (Auto) (38-83) % Lymph % (Auto) (25-47) % [place] % (Auto) (1-9) % Eos % (Auto) (0-6) % Baso % (Auto) (0-2) % Absolute Neuts (auto) (1.5-7.7) 10^3/ul Absolute Lymphs (auto) (1.0-4.8) 10^3/ul Absolute Monos (auto) (0-0.8) 10^3/ul Absolute Eos (auto) (0-0.6) 10^3/ul Absolute Basos (auto) (0-0.2) 10^3/ul Absolute Nucleated RBC 10^3/ul Nucleated RBC % INR (Anticoag Therapy) 1.12 H (0.89-1.11) Sodium (133-145) mmol/L Potassium (3.5-5.0) mmol/L Chloride (101-111) mmol/L Carbon Dioxide (22-32) mmol/L Anion Gap (2-11) mmol/L BUN (6-24) mg/dL Creatinine (0.67-1.17) mg/dL Est GFR ( Amer) (>60) Est GFR (Non-Af Amer) (>60) BUN/Creatinine Ratio (8-20) Glucose (70-100) mg/dL Lactic Acid (0.5-2.0) mmol/L Calcium (8.6-10.3) mg/dL Total Bilirubin (0.2-1.0) mg/dL AST (13-39) U/L ALT (7-52) U/L Alkaline Phosphatase (34-104) U/L Troponin I (<0.04) ng/mL B-Natriuretic Peptide 62 ( - 100) pg/mL Total Protein (6.4-8.9) g/dL Albumin (3.2-5.2) g/dL Globulin (2-4) g/dL Albumin/Globulin Ratio (1-3) Result Diagrams: 07/31/17 19:34 07/31/17 19:34 Lab Statement: Any lab studies that have been ordered have been reviewed, and results considered in the medical decision making process. Course/Dx - Diagnoses Provider Diagnoses: Pneumonia Discharge - Discharge Plan Condition: Stable Disposition: OTHER Discharge Disposition Comment: signed out to Dr. Barclay, pending dispo, awaiting chest XR and EKG. Referrals: Maurice Jason MD [Primary Care Provider] - The documentation as recorded by the Cornell elliott Angela accurately reflects the service I personally performed and the decisions made by , Reji Paz MD.
[2017-07-31 21:09] LABS: Urine Bacteria Absent (Absent); Urine Bilirubin Negative (Negative); Urine Glucose Negative (Negative); Urine Nitrite Negative (Negative)
--- NOTE | 2017-07-31 21:11 | ED ---
Denis Michel Rebecca, scribed for Gilson Barclay on 07/31/17 at 2110 . Progress - Progress Note Progress Note: Pt was signed out by Dr. Paz, pending disposition, awaiting CXR. - Results/Orders Results/Orders: EKG taken at 1932: Rate: Tachycardic at 108 bpm Rhythm: Sinus tachycardia Impression: No acute changes CXR, as read by radiologist, reveals: 1. COPD. 2. PATCHY LEFT BASILAR ATELECTASIS VERSUS CONSOLIDATION. RECOMMEND FOLLOW-UP UNTIL RESOLUTION TO EXCLUDE UNDERLYING PULMONARY PARENCHYMAL PATHOLOGY. ED physician reviewed radiology report and agrees. Course/Dx - Course Course Of Treatment: Pt was signed out by Dr. Paz, pending disposition, awaiting CXR. CXr reveals COPD and PATCHY LEFT BASILAR ATELECTASIS VERSUS CONSOLIDATION. EKG is sinus tachycardia with no acute changes. Troponin of 0.01. Discussed care of pt with Dr. Espinal who accepts pt for admission. Pt's condition is stable and he will be admitted. He understands and agrees. Allergies noted. Elevated BP noted. Pt medications reviewed. - Diagnoses Provider Diagnoses: Pneumonia, COPD exacerbation, Hypoxia, Respiratory failure, Hypokalemia, Hyponatremia - Provider Notifications Discussed Care Of Patient With: Mustapha Espinal Time Discussed With Above Provider: 21:03 Instructed by Provider To: Other - Accepts pt for admission The documentation as recorded by the Denis elliott Rebecca accurately reflects the service I personally performed and the decisions made by , Gilson Barclay.
[2017-07-31 21:18] LABS: PCO2 Arterial 29 mmHg (35-45)
[2017-07-31 21:22] LABS: Immature Granulocytes 14 % (0-9); Neutrophil % 74 % (38-83); RBC Morphology Normal (Normal)
[2017-07-31 21:43] LABS: Magnesium 1.8 mg/dL (1.9-2.7)
[2017-07-31] MEDS ORDERED: Albuterol HFA INHALER* 8 gm MDI INH PRN (21:48)
[2017-07-31] MEDS ORDERED: Magnesium Sulfate 2 GM IV* 2 GM/50 ML BAG IVPB ONE (21:50)
[2017-07-31] MEDS: Albuterol 2.5 MG/3 ML NEB.SOL* (0.083%) INH SCH (23:23)
[2017-07-31] MEDS: Heparin VIAL(*) 5000 UNITS/ML VIAL (FIVE THOUSAND) SUBCUT SCH (23:49)
[2017-07-31] MEDS: guaiFENesin ER TAB 600 MG PO SCH (23:51)
--- NOTE | 2017-08-01 00:58 | HP ---
CC: Dr. Maurice Jason * HISTORY AND PHYSICAL: DATE OF ADMISSION: 07/31/17 PRIMARY CARE PROVIDER: Dr. Maurice Jason. ATTENDING PHYSICIAN: Mustapha Espinal MD * (dictated by Yumiko Bhagat NP). CHIEF COMPLAINT: Shortness of breath and cough. HISTORY OF PRESENT ILLNESS: Mr. Schneider is an 82-year-old male with past medical history significant for COPD, Lazcano's palsy and hypertension, who presented to the emergency room with complaints of cough for a week and shortness of breath, worse over the last 5 days. The patient states that he was in his usual state of health and he had a physical last , 07/25/17, at Dr. Jason's office , at which time the patient had complaints of cough. He had a chest x-ray and was told that everything looked okay. The patient states that over the last several days, mostly the last 2 to 3 days his shortness of breath has been worse. He is unable to talk or walk much due to the shortness of breath. He reports some yellow sputum with his cough. He denies any fever, chills, chest pain, nausea, vomiting. He has been using his albuterol inhaler approximately every hour. He denies any urinary symptoms or GI complaints such as constipation. He reports a poor appetite due to his shortness of breath. He denies any weakness or rashes. Based off his symptoms, his daughter brought him to the emergency room for further evaluation. While in the emergency room, the patient received azithromycin, ceftriaxone, Solu- Medrol, potassium and albuterol. He had labs and it was significant for hypokalemia with potassium of 3.2, troponin of 0.01, white blood cell count of 25. He also had blood gases showing pH of 7.5, pCO2 of 29, pO2 of 58, bicarb of 25.2, O2 saturation of 92.7%. He was also noted to be hyponatremic with a sodium of 129 and slightly elevated bilirubin of 1.3. He had a urinalysis that was unremarkable. He had an EKG showing a sinus tachycardia and a rate of 108. This EKG was similar to previous EKGs. He had a chest x-ray showing COPD and a patchy left basilar atelectasis versus consolidation. Hospitalists were asked to evaluate him for admission. PAST MEDICAL HISTORY: 1. COPD. 2. Lazcano's palsy. 3. Hypertension. PAST SURGICAL HISTORY: None. HOME MEDICATIONS: Include: 1. Guaifenesin 600 mg oral every 4 hours as needed for cough. 2. Amlodipine 2.5 mg oral daily. 3. Spiriva 1 capsule inhalation daily. 4. Potassium chloride 30 mEq oral twice daily. 5. Multivitamin 1 tablet oral daily. 6. Dulera 200/5, 2 puffs inhalation twice daily. 7. Hydrochlorothiazide 25 mg oral every morning. 8. Vitamin B12, 1000 mcg oral daily. 9. Vitamin D3, 2000 units oral daily. 10. Aspirin 81 mg oral daily. 11. Albuterol inhaler 2 puffs inhalation 4 times daily as needed for shortness of breath. 12. Albuterol 2.5 mg nebulizer inhalation every 4 hours as needed for shortness of breath. ALLERGIES: EGGS. FAMILY HISTORY: The patient denies any family history of coronary artery disease or diabetes mellitus. The patient has a half sister with a history of lung cancer. SOCIAL HISTORY: The patient is a former smoker quitting 50 years ago. He states he was a light smoker for a few years prior to quitting. He denies alcohol or recreational drug use. The patient's daughter, Tasha Schneider, will be his surrogate decision maker in the event he is unable to make decisions for himself. REVIEW OF SYSTEMS: I performed a 14-point review of systems. All the pertinent positives and negatives are mentioned in the history of present illness. The remaining review of systems are negative. PHYSICAL EXAMINATION GENERAL APPEARANCE: The patient is alert, pleasant, appears to be in no acute distress, is slightly cachetic looking. VITAL SIGNS: Temperature 98.6, heart rate 124, respiratory rate 18, O2 sat 95% on 3 L, blood pressure 120/58. HEENT: Normocephalic, atraumatic. Pupils are equal and reactive to light. Extraocular movements are intact. RESPIRATORY: There is no accessory muscle use. Lung sounds are diminished bilaterally with a few fine crackles heard in the left base. CARDIOVASCULAR: Regular rate and rhythm, tachycardic. S1 and S2 present. There are no murmurs, rubs, or gallops heard. ABDOMEN: Soft, nontender, nondistended. There are bowel sounds present x4. EXTREMITIES: No lower extremity edema. DP and PT pulses are 2+ and symmetric. MUSCULOSKELETAL: There is no clubbing or cyanosis noted. The patient exhibits good strength in all extremities. NEUROLOGIC: The patient is alert and oriented x4. Cranial nerves II through XII are grossly intact. PSYCHOLOGICAL: The patient is calm and cooperative. SKIN: There are no rashes or abnormalities seen. DIAGNOSTIC STUDIES/LABORATORY DATA: Sodium 129, potassium 3.2, chloride 96, CO2 23, BUN 9, creatinine 0.80, glucose 130. Troponin 0.01. Total bilirubin 1.30. White blood cell count 25, hemoglobin 16.2, hematocrit 47, and platelet count 261,000. ABG; pH 7.50, pCO2 29, pO2 58, HCO3 25.2, O2 sat 92.7%. Urine significant for 1+ ketones and 1+ blood. EKG shows sinus tachycardia with rate of 108. There are no acute signs of ischemia. This EKG is similar to previous EKG from 02/05/17. Chest x-ray from today. Radiologist's impression: COPD. Patchy left basilar atelectasis versus consolidation. Recommend followup until resolution to exclude underlying pulmonary parenchymal pathology. IMPRESSION: Mr. Schneider is an 82-year-old male with past medical history significant for chronic obstructive pulmonary disease, Lazcano's palsy and hypertension, who presents to the emergency room with complaints of cough and shortness of breath for a week. He will be admitted as an inpatient for pneumonia. ASSESSMENT/PLAN: 1. Shortness of breath. I suspect this is a combination of chronic obstructive pulmonary disease exacerbation and pneumonia. The patient will be continued on azithromycin and ceftriaxone. I will also continue him on a prednisone taper, in addition to albuterol nebs every 4 hours while awake. The patient also is hypoxic and is requiring oxygen supplement. He will be continued on oxygen as needed, we will work to wean him as able off the oxygen. We will check urine for legionella and S. Pneumo antigens and get a sputum culture. 2. Chronic obstructive pulmonary disease. I suspect the patient is having an exacerbation at this time. The patient will be continued on his home Dulera and Spiriva. We will continue a Prednisone taper. 3. Hypertension. The patient is normotensive at this time. He will be continued on his home amlodipine. We will also continue the patient on guaifenesin twice daily. 4. Hypokalemia. The patient received replacement in the emergency room. I will check magnesium, if this is also low we will give replacement. 5. Hyponatremia. I suspect this is in the setting of hypovolemia. We will give the patient some gentle IV hydration. Recheck his labs in the morning. 6. Fluids, electrolytes and nutrition. The patient will be on a regular diet. 7. Code status. Full code. 8. DVT prophylaxis. The patient is at highest risk. He will be placed on subcu heparin and CORRINA stockings. 9. Disposition. Inpatient. TIME SPENT: Time for this admission was 60 minutes, greater than half of that was spent with the patient and daughter discussing medications, past medical history and the events leading up to his arrival today and performing physical examination. The case has been reviewed with the attending, Dr. Espinal, who agrees with the plan of care. Reviewed by SHER GUTIERREZ 08/07/17 0944 [id number]/[facility] #: [id number] MTDJessica
[2017-08-01] MEDS: Albuterol 2.5 MG/3 ML NEB.SOL* (0.083%) INH SCH ×6 (03:49→23:21)
[2017-08-01] MEDS: Heparin VIAL(*) 5000 UNITS/ML VIAL (FIVE THOUSAND) SUBCUT SCH ×3 (05:51→21:21)
[2017-08-01] MEDS: Tiotropium CAP.INH* CAP.INH/18 MCG (USE ORDER SET !) INH SCH (07:42)
[2017-08-01] MEDS: Mometasone/Formoter 200/5 MDI INH SCH ×2 (07:43→19:52)
[2017-08-01 07:47] LABS: Hematocrit 46 % (42-52); Hemoglobin 15.4 g/dl (14.0-18.0); Mean Corpuscular HGB Conc 34 g/dl (31-36); Mean Corpuscular Hemoglobin 29 pg (27-31); Mean Corpuscular Volume 87 fL (80-94); Mean Platelet Volume 9 um3 (7.4-10.4); Red Blood Count 5.28 10^6/ul (4.0-5.4); Red Cell Distribution Width 14 % (10.5-15); White Blood Count 22.1 10^3/ul (3.5-10.8)
[2017-08-01 07:50] LABS: Add Diff/Slide Review? Slide Review Added
[2017-08-01 07:53] LABS: Comments Flag N
[2017-08-01 07:58] LABS: BUN/Creatinine Ratio 14.1 (8-20); Calcium 9.5 mg/dL (8.6-10.3); EGFR Non-African American 78.6 (>60); Magnesium 2.5 mg/dL (1.9-2.7); Potassium 3.4 mmol/L (3.5-5.0)
[2017-08-01] MEDS ORDERED: Spiriva Inhaler DEVICE* 1 EACH DEVICE ONE (09:00)
[2017-08-01] MEDS: amLODIPine TAB* 5 MG PO SCH (09:30)
[2017-08-01] MEDS: guaiFENesin ER TAB 600 MG PO SCH ×2 (09:31→21:21)
[2017-08-01] MEDS: Multivitamins/Minerals TAB PO SCH (09:31)
[2017-08-01] MEDS: predniSONE TAB* 50 MG PO SCH (09:31)
[2017-08-01] MEDS: Hydrochlorothiazide TAB* 25 MG PO SCH (09:31)
[2017-08-01] MEDS: Aspirin EC Low Dose* 81 MG TAB.EC PO SCH (09:32)
[2017-08-01] MEDS: Cholecalciferol TAB* 1000 UNITS PO SCH (09:32)
[2017-08-01] MEDS: Cyanocobalamin TAB* 500 MCG PO SCH (09:32)
[2017-08-01] MEDS: Potassium Chlor TAB* 10 MEQ TAB.ER PO SCH ×2 (09:32→21:21)
[2017-08-01] MEDS ORDERED: Potassium Chlor TAB* 20 MEQ TAB.ER PO ONE (11:01)
--- NOTE | 2017-08-01 12:08 | PN ---
Subjective Date of Service: 08/01/17 Interval History: Patient seen and examined at bedside. Denies fever, chills, chest discomfort, N/ V/D. Pt states that his shortness of breath is improved today. Continues to require O2 supplementation. Tele: Sinus tachycardia to Sinus rhythm, rate 80-100's Family History: Unchanged from Admission Social History: Unchanged from Admission Past Medical History: Unchanged from Admission Objective Active Medications: Albuterol (Ventolin 2.5 Mg/3 Ml Neb.Digna*) 2.5 mg INH [id number] AWAKE SARAH Albuterol (Ventolin Hfa Inhaler*) 2 puff INH QID PRN Reason: SHORTNESS OF BREATH Amlodipine Besylate (Norvasc Tab*) 2.5 mg PO DAILY SARAH Aspirin (Aspirin Ec Low Dose*) 81 mg PO DAILY SARAH Cholecalciferol (Vitamin D Tab*) 2,000 units PO DAILY SARAH Cyanocobalamin (Vitamin B12 Tab*) 1,000 mcg PO DAILY SARAH Guaifenesin (Mucinex*) 1,200 mg PO BID SARAH Heparin Sodium (Porcine) (Heparin Vial(*)) 5,000 units SUBCUT Q8HR SARAH Hydrochlorothiazide (Hydrodiuril Tab*) 25 mg PO QAM SARAH Ceftriaxone Sodium 1,000 mg/ (Sodium Chloride) 50 mls @ 200 mls/hr IVPB Q24H SARAH Azithromycin 500 mg/ Sodium (Chloride) 250 mls @ 250 mls/hr IVPB Q24H SARAH Mometasone Furoate/Formoterol Fumar (Dulera 200/5 Mdi*) 2 puff INH BID SARAH Multivitamins/Minerals (Theragran/Minerals Tab*) 1 tab PO DAILY SARAH Potassium Chloride (Klor Con Er Tab*) 30 meq PO BID SARAH Prednisone (Deltasone Tab*) 50 mg PO DAILY SARAH Tiotropium [place] (Spiriva Cap.Inh*) 1 cap INH DAILY SARAH Vital Signs 07/31/17 07/31/17 07/31/17 21:30 22:00 22:54 Temperature 98.2 F Pulse Rate 122 116 111 Respiratory 23 24 22 Rate Blood Pressure 137/59 129/62 136/56 (mmHg) O2 Sat by Pulse 90 93 96 Oximetry 07/31/17 07/31/17 07/31/17 23:02 23:12 23:24 Temperature 98.2 F Pulse Rate 111 106 Respiratory 30 20 Rate Blood Pressure 136/56 (mmHg) O2 Sat by Pulse 96 96 Oximetry 08/01/17 08/01/17 08/01/17 00:00 00:04 00:59 Temperature 98.1 F Pulse Rate 107 Respiratory 26 17 17 Rate Blood Pressure 122/62 (mmHg) O2 Sat by Pulse 96 Oximetry 08/01/17 08/01/17 08/01/17 01:00 01:39 02:00 Temperature Pulse Rate Respiratory 24 25 Rate Blood Pressure (mmHg) O2 Sat by Pulse 96 Oximetry 08/01/17 08/01/17 08/01/17 03:00 04:00 05:00 Temperature Pulse Rate Respiratory 22 20 31 Rate Blood Pressure (mmHg) O2 Sat by Pulse Oximetry 08/01/17 08/01/17 08/01/17 06:00 06:21 07:33 Temperature 97.5 F Pulse Rate 84 83 Respiratory 21 22 16 Rate Blood Pressure 114/53 124/55 (mmHg) O2 Sat by Pulse 97 98 Oximetry 08/01/17 08/01/17 08/01/17 07:44 08:00 11:18 Temperature Pulse Rate 86 87 Respiratory 14 17 14 Rate Blood Pressure (mmHg) O2 Sat by Pulse 96 95 Oximetry Oxygen Devices in Use Now: Nasal Cannula - 2L Appearance: NAD Ears/Nose/Mouth/Throat: Mucous Membranes Moist Respiratory: Symmetrical Chest Expansion and Respiratory Effort Cardiovascular: NL Sounds; No Murmurs; No JVD, RRR Abdominal: NL Sounds; No Tenderness; No Distention, - - Lung sounds clear in the upper lobes, diminished with crackles in left base Extremities: No Edema Skin: No Rash or Ulcers Neurological: Alert and Oriented x 3, NL Muscle Strength and Tone Lines/Tubes/Other Access: Clean, Dry and Intact Peripheral IV - site benign Nutrition: Taking PO's Result Diagrams: 08/01/17 07:15 08/01/17 07:15 Assess/Plan/Problems-Billing Assessment: Mr. Schneider is an 82 yo male with PMH significant for COPD, hx Lazcano's palsy and HTN who presented to the emergency room with complaints of cough and shortness of breath for 1 week and was found to have PNA. - Patient Problems (1) Pneumonia Code(s): J18.9 - PNEUMONIA, UNSPECIFIED ORGANISM SNOMED Code(s): 149549524 Comment: - Afebrile and leukocytosis. - Community acquired - strep pneumo/legionella antigens pending. - CXR shows small bibasilar infiltrates. - Continue ceftriaxone and azithromycin, prednisone and supportive care. (2) COPD with exacerbation Code(s): J44.1 - CHRONIC OBSTRUCTIVE PULMONARY DISEASE W (ACUTE) EXACERBATION SNOMED Code(s): 741788371 Comment: - With leukocytosis and pneumonia - Patient maintaining O2 sats mid-90s on oxygen - Continue prednisone, inhalers, nebulizers (3) Hyponatremia Code(s): E87.1 - HYPO-OSMOLALITY AND HYPONATREMIA SNOMED Code(s): 58495514 Comment: - Resolved after IVFs - Suspect secondary to hypovolemia (4) Hypokalemia Code(s): E87.6 - HYPOKALEMIA SNOMED Code(s): 40637847 Comment: - Chronic issue, per patient - Continue home potassium replacement BID (5) Hypertension Current Visit: No Status: Chronic Code(s): I10 - ESSENTIAL (PRIMARY) HYPERTENSION SNOMED Code(s): 63778389 Comment: - Normotensive. - Continue amlodipine and HCTZ. (6) DVT prophylaxis Code(s): HZZ1859 - SNOMED Code(s): 091427833 Comment: - SQ heparin (7) Full code status Code(s): Z78.9 - OTHER SPECIFIED HEALTH STATUS SNOMED Code(s): 812853067 Status and Disposition: Inpatient. Discharge to home when medically stable.
[2017-08-01] MEDS: cefTRIAXone VIAL(*) 1,000 MG in NS 0.9% 50 ML* 50 ML IVPB SCH (20:24)
[2017-08-01] MEDS: Azithromycin IV(*) 500 MG in NS 0.9% 250 ML* 250 ML IVPB SCH (21:21)
[2017-08-02] MEDS: Albuterol 2.5 MG/3 ML NEB.SOL* (0.083%) INH SCH ×6 (03:37→23:10)
[2017-08-02] MEDS: Benzonatate CAP* 100 MG PO PRN ×2 (04:37→20:43)
[2017-08-02] MEDS: Heparin VIAL(*) 5000 UNITS/ML VIAL (FIVE THOUSAND) SUBCUT SCH ×3 (05:20→20:43)
[2017-08-02 06:39] LABS: Hematocrit 41 % (42-52); Hemoglobin 13.8 g/dl (14.0-18.0); Mean Corpuscular HGB Conc 34 g/dl (31-36); Mean Corpuscular Hemoglobin 30 pg (27-31); Mean Corpuscular Volume 87 fL (80-94); Mean Platelet Volume 9 um3 (7.4-10.4); Red Blood Count 4.64 10^6/ul (4.0-5.4); Red Cell Distribution Width 14 % (10.5-15); White Blood Count 19.3 10^3/ul (3.5-10.8)
[2017-08-02 06:53] LABS: BUN/Creatinine Ratio 27.6 (8-20); Calcium 9.2 mg/dL (8.6-10.3); EGFR African American 107.8 (>60); EGFR Non-African American 83.8 (>60)
[2017-08-02] MEDS: Mometasone/Formoter 200/5 MDI INH SCH ×2 (07:48→19:28)
[2017-08-02] MEDS: Tiotropium CAP.INH* CAP.INH/18 MCG (USE ORDER SET !) INH SCH (07:49)
[2017-08-02] MEDS: amLODIPine TAB* 5 MG PO SCH (08:24)
[2017-08-02] MEDS: Multivitamins/Minerals TAB PO SCH (08:25)
[2017-08-02] MEDS: Aspirin EC Low Dose* 81 MG TAB.EC PO SCH (08:25)
[2017-08-02] MEDS: Hydrochlorothiazide TAB* 25 MG PO SCH (08:25)
[2017-08-02] MEDS: Potassium Chlor TAB* 10 MEQ TAB.ER PO SCH ×2 (08:26→20:43)
[2017-08-02] MEDS: guaiFENesin ER TAB 600 MG PO SCH ×2 (08:27→20:43)
[2017-08-02] MEDS: predniSONE TAB* 50 MG PO SCH (08:27)
[2017-08-02] MEDS: Cholecalciferol TAB* 1000 UNITS PO SCH (08:27)
[2017-08-02] MEDS: Cyanocobalamin TAB* 500 MCG PO SCH (08:28)
--- NOTE | 2017-08-02 17:38 | PN ---
Subjective Date of Service: 08/02/17 Interval History: Pt still coughing a lot. getting winded with exertion though off supplemental oxygen. Family History: Unchanged from Admission Social History: Unchanged from Admission Past Medical History: Unchanged from Admission Objective Active Medications: Albuterol (Ventolin 2.5 Mg/3 Ml Neb.Digna*) 2.5 mg INH [id number] AWAKE [facility] Last Admin: 08/02/17 14:25 Dose: 2.5 mg Albuterol (Ventolin Hfa Inhaler*) 2 puff INH QID PRN PRN Reason: SHORTNESS OF BREATH Last Admin: 08/02/17 04:26 Dose: 2 puff Amlodipine Besylate (Norvasc Tab*) 2.5 mg PO DAILY [facility] Last Admin: 08/02/17 08:24 Dose: 2.5 mg Aspirin (Aspirin Ec Low Dose*) 81 mg PO DAILY [facility] Last Admin: 08/02/17 08:25 Dose: 81 mg Benzonatate (Tessalon Cap*) 100 mg PO BID PRN PRN Reason: COUGH Last Admin: 08/02/17 04:37 Dose: 100 mg Cholecalciferol (Vitamin D Tab*) 2,000 units PO DAILY [facility] Last Admin: 08/02/17 08:27 Dose: 2,000 units Cyanocobalamin (Vitamin B12 Tab*) 1,000 mcg PO DAILY [facility] Last Admin: 08/02/17 08:28 Dose: 1,000 mcg Guaifenesin (Mucinex*) 1,200 mg PO BID [facility] Last Admin: 08/02/17 08:27 Dose: 1,200 mg Heparin Sodium (Porcine) (Heparin Vial(*)) 5,000 units SUBCUT Q8HR [facility] Last Admin: 08/02/17 13:23 Dose: 5,000 units Hydrochlorothiazide (Hydrodiuril Tab*) 25 mg PO QAM [facility] Last Admin: 08/02/17 08:25 Dose: 25 mg Ceftriaxone Sodium 1,000 mg/ (Sodium Chloride) 50 mls @ 200 mls/hr IVPB Q24H [facility] Last Admin: 08/01/17 20:24 Dose: 200 mls/hr Azithromycin 500 mg/ Sodium (Chloride) 250 mls @ 250 mls/hr IVPB Q24H [facility] Last Admin: 08/01/17 21:21 Dose: 250 mls/hr Mometasone Furoate/Formoterol Fumar (Dulera 200/5 Mdi*) 2 puff INH BID [facility] Last Admin: 08/02/17 07:48 Dose: 2 puff Multivitamins/Minerals (Theragran/Minerals Tab*) 1 tab PO DAILY [facility] Last Admin: 08/02/17 08:25 Dose: 1 tab Potassium Chloride (Klor Con Er Tab*) 30 meq PO BID [facility] Last Admin: 08/02/17 08:26 Dose: 30 meq Prednisone (Deltasone Tab*) 50 mg PO DAILY [facility] Last Admin: 08/02/17 08:27 Dose: 50 mg Tiotropium [place] (Spiriva Cap.Inh*) 1 cap INH DAILY [facility] Last Admin: 08/02/17 07:49 Dose: 1 cap Vital Signs 08/01/17 08/01/17 08/01/17 19:53 20:00 20:08 Temperature 96.3 F Pulse Rate 98 100 Respiratory 18 20 20 Rate Blood Pressure 138/51 (mmHg) O2 Sat by Pulse 98 93 Oximetry 08/01/17 08/01/17 08/01/17 20:10 23:21 23:34 Temperature 97.8 F 98.0 F Pulse Rate 94 93 Respiratory 18 16 Rate Blood Pressure 122/46 (mmHg) O2 Sat by Pulse 98 91 Oximetry 08/02/17 08/02/17 08/02/17 00:00 04:17 04:30 Temperature 97.9 F Pulse Rate 82 82 Respiratory 16 16 Rate Blood Pressure 127/43 (mmHg) O2 Sat by Pulse 96 95 95 Oximetry 08/02/17 08/02/17 08/02/17 07:50 08:00 09:12 Temperature 97.4 F Pulse Rate 85 84 Respiratory 16 17 Rate Blood Pressure 124/56 (mmHg) O2 Sat by Pulse 93 98 Oximetry 08/02/17 11:55 Temperature 97.3 F Pulse Rate 86 Respiratory 16 Rate Blood Pressure 131/60 (mmHg) O2 Sat by Pulse 95 Oximetry Oxygen Devices in Use Now: None, Nasal Cannula Appearance: NAD, sitting on side of bed eating lunch. Ears/Nose/Mouth/Throat: NL Teeth, Lips, Gums, Mucous Membranes Moist Neck: NL Appearance and Movements; NL JVP Respiratory: Clear to Auscultation, - - moderate air exchage, no rales, no rhonchi Cardiovascular: NL Sounds; No Murmurs; No JVD, RRR Abdominal: NL Sounds; No Tenderness; No Distention, No Hepatosplenomegaly Extremities: No Edema, No Clubbing, Cyanosis Skin: No Rash or Ulcers, No Nodules or Sclerosis Neurological: Alert and Oriented x 3, NL Sensation Result Diagrams: 08/02/17 05:55 08/02/17 05:55 Additional Lab and Data: Laboratory Results - last 24 hr 08/02/17 08/02/17 05:55 05:55 WBC 19.3 H RBC 4.64 Hgb 13.8 L Hct 41 L MCV 87 MCH 30 MCHC 34 RDW 14 Plt Count 222 MPV 9 Neut % (Auto) 90.5 H Lymph % (Auto) 2.8 L [place] % (Auto) 6.7 Eos % (Auto) 0 Baso % (Auto) 0 Absolute Neuts (auto) 17.4 H Absolute Lymphs (auto) 0.5 L Absolute Monos (auto) 1.3 H Absolute Eos (auto) 0 Absolute Basos (auto) 0 Absolute Nucleated RBC 0 Nucleated RBC % 0 Sodium 138 Potassium 4.0 Chloride 105 Carbon Dioxide 27 Anion Gap 6 BUN 24 Creatinine 0.87 Est GFR ( Amer) 107.8 Est GFR (Non-Af Amer) 83.8 BUN/Creatinine Ratio 27.6 H Glucose 175 H Calcium 9.2 Microbiology and Other Data: Microbiology 08/01/17 21:25 Sputum Expectorated Gram Stain - Final 08/01/17 18:24 Urine Legionella Urinary Antigen - Final Negative Legionella 08/01/17 18:24 Urine Streptococcus pneumoniae Ag Screen - Final Negative S. pneumo Antigen 07/31/17 19:35 Blood Venous Aerobic Blood Culture - Preliminary No Growth Day 1 07/31/17 19:35 Blood Venous Anaerobic Blood Culture - Preliminary No Growth Day 1 07/31/17 19:34 Blood Venous Aerobic Blood Culture - Preliminary No Growth Day 1 07/31/17 19:34 Blood Venous Anaerobic Blood Culture - Preliminary No Growth Day 1 Assess/Plan/Problems-Billing Assessment: 82 yo male with PMH significant for COPD, hx Lazcano's palsy and HTN who p/w cough , SOB x 1 week and was found to have PNA/COPD exaccerbation. Mild hypoxic respiratory failure. - Patient Problems (1) COPD with exacerbation Current Visit: Yes Status: Acute Code(s): J44.1 - CHRONIC OBSTRUCTIVE PULMONARY DISEASE W (ACUTE) EXACERBATION SNOMED Code(s): 150560016791524 Comment: - With leukocytosis and pneumonia - now off oxygen - Continue prednisone(w/ taper, currently 50mg), inhalers, nebulizers, abx (2) Pneumonia Current Visit: Yes Status: Acute Code(s): J18.9 - PNEUMONIA, UNSPECIFIED ORGANISM SNOMED Code(s): 193301674 Comment: - Afebrile and slowly improving leukocytosis. - Community acquired - strep pneumo/legionella antigens negative - CXR shows small bibasilar infiltrates. - Continue ceftriaxone and azithromycin, prednisone and supportive care. (3) Hypertension Current Visit: No Status: Chronic Code(s): I10 - ESSENTIAL (PRIMARY) HYPERTENSION SNOMED Code(s): 65227489 Comment: - Normotensive. - Continue amlodipine and HCTZ. Status and Disposition: Inpatient. Discharge to home when medically stable. Attending: Clemente Raman
[2017-08-02] MEDS: cefTRIAXone VIAL(*) 1,000 MG in NS 0.9% 50 ML* 50 ML IVPB SCH (20:42)
[2017-08-02] MEDS: Azithromycin IV(*) 500 MG in NS 0.9% 250 ML* 250 ML IVPB SCH (21:58)
[2017-08-03] MEDS: Albuterol 2.5 MG/3 ML NEB.SOL* (0.083%) INH SCH ×5 (03:46→19:14)
[2017-08-03] MEDS: Heparin VIAL(*) 5000 UNITS/ML VIAL (FIVE THOUSAND) SUBCUT SCH ×3 (05:53→20:37)
[2017-08-03] MEDS: Mometasone/Formoter 200/5 MDI INH SCH ×2 (07:55→19:15)
[2017-08-03] MEDS: Tiotropium CAP.INH* CAP.INH/18 MCG (USE ORDER SET !) INH SCH (07:55)
[2017-08-03] MEDS: amLODIPine TAB* 5 MG PO SCH (08:20)
[2017-08-03] MEDS: Benzonatate CAP* 100 MG PO PRN (08:21)
[2017-08-03] MEDS: Hydrochlorothiazide TAB* 25 MG PO SCH (08:22)
[2017-08-03] MEDS: predniSONE TAB* 50 MG PO SCH (08:22)
[2017-08-03] MEDS: Aspirin EC Low Dose* 81 MG TAB.EC PO SCH (08:22)
[2017-08-03] MEDS: Multivitamins/Minerals TAB PO SCH (08:22)
[2017-08-03] MEDS: Cyanocobalamin TAB* 500 MCG PO SCH (08:23)
[2017-08-03] MEDS: Potassium Chlor TAB* 10 MEQ TAB.ER PO SCH ×2 (08:23→20:36)
[2017-08-03] MEDS: guaiFENesin ER TAB 600 MG PO SCH ×2 (08:24→20:36)
[2017-08-03] MEDS: Cholecalciferol TAB* 1000 UNITS PO SCH (08:24)
[2017-08-03 09:33] LABS: Hematocrit 45 % (42-52); Mean Corpuscular HGB Conc 34 g/dl (31-36); Mean Corpuscular Hemoglobin 29 pg (27-31); Mean Corpuscular Volume 87 fL (80-94); Mean Platelet Volume 9 um3 (7.4-10.4); Red Blood Count 5.17 10^6/ul (4.0-5.4); Red Cell Distribution Width 15 % (10.5-15); White Blood Count 17.6 10^3/ul (3.5-10.8)
[2017-08-03 09:54] LABS: BUN/Creatinine Ratio 28.9 (8-20); Calcium 9.8 mg/dL (8.6-10.3); Potassium 4.3 mmol/L (3.5-5.0)
[2017-08-03] MEDS: cefTRIAXone VIAL(*) 1,000 MG in NS 0.9% 50 ML* 50 ML IVPB SCH (19:47)
[2017-08-03] MEDS ORDERED: amLODIPine TAB* 5 MG PO ONE (20:25)
[2017-08-03] MEDS: Azithromycin IV(*) 500 MG in NS 0.9% 250 ML* 250 ML IVPB SCH (20:34)
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
[2017-08-04] MEDS: Albuterol 2.5 MG/3 ML NEB.SOL* (0.083%) INH SCH ×4 (00:11→11:05)
[2017-08-04] MEDS: Heparin VIAL(*) 5000 UNITS/ML VIAL (FIVE THOUSAND) SUBCUT SCH (05:45)
[2017-08-04 07:05] LABS: Hematocrit 45 % (42-52); Mean Corpuscular HGB Conc 33 g/dl (31-36); Mean Corpuscular Hemoglobin 29 pg (27-31); Mean Corpuscular Volume 88 fL (80-94); Mean Platelet Volume 9 um3 (7.4-10.4); Red Blood Count 5.14 10^6/ul (4.0-5.4); Red Cell Distribution Width 15 % (10.5-15); White Blood Count 12.4 10^3/ul (3.5-10.8)
[2017-08-04 07:20] LABS: BUN/Creatinine Ratio 24.7 (8-20); Calcium 9.4 mg/dL (8.6-10.3); EGFR Non-African American 102.6 (>60); Potassium 4.6 mmol/L (3.5-5.0)
[2017-08-04] MEDS: Tiotropium CAP.INH* CAP.INH/18 MCG (USE ORDER SET !) INH SCH (07:27)
[2017-08-04] MEDS: Mometasone/Formoter 200/5 MDI INH SCH (07:28)
[2017-08-04] MEDS: Potassium Chlor TAB* 10 MEQ TAB.ER PO SCH (09:02)
[2017-08-04] MEDS: Hydrochlorothiazide TAB* 25 MG PO SCH (09:02)
[2017-08-04] MEDS: guaiFENesin ER TAB 600 MG PO SCH (09:03)
[2017-08-04] MEDS: predniSONE TAB* 50 MG PO SCH (09:04)
[2017-08-04] MEDS: Aspirin EC Low Dose* 81 MG TAB.EC PO SCH (09:04)
[2017-08-04] MEDS: Cyanocobalamin TAB* 500 MCG PO SCH (09:04)
[2017-08-04] MEDS: Cholecalciferol TAB* 1000 UNITS PO SCH (09:05)
[2017-08-04] MEDS: Multivitamins/Minerals TAB PO SCH (09:05)
[2017-08-04] MEDS: amLODIPine TAB* 5 MG PO SCH (09:05)
[2017-08-04 09:31] VITALS: BP 138/71
[2017-08-04] MEDS ORDERED: Albuterol 2.5 MG/3 ML NEB.SOL* (0.083%) INH PRN (11:03)
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
== END 2017-08-04 14:40 | disposition home or self-care (01) | DRG 193 ==
LOC: ED 18:22 → MED 21:22
PROVIDERS: ADMIT Hospitalist; ATTEND Internal Medicine
DX: J18.9 Pneumonia, unspecified organism (principal); J96.91 Respiratory failure, unspecified with hypoxia; R64 Cachexia; E87.1 Hypo-osmolality and hyponatremia; J44.0 Chronic obstructive pulmonary disease with (acute) lower respiratory infection; J44.1 Chronic obstructive pulmonary disease with (acute) exacerbation; E87.6 Hypokalemia; R00.0 Tachycardia, unspecified; I10 Essential (primary) hypertension; Z87.01 Personal history of pneumonia (recurrent); Z87.891 Personal history of nicotine dependence; Z91.012 Allergy to eggs; Z82.49 Family history of ischemic heart disease and other diseases of the circulatory system; Z79.82 Long term (current) use of aspirin; Z77.120 Contact with and (suspected) exposure to mold (toxic)
CPT/HCPCS: 36415; 36600; 71010; 80048; 80053; 81003; 81015; 82803; 83605; 83735; 83880; 84484; 85025; 85610; 87040; 87070; 87107; 87205; 87899; 93005; 94640; 94760; A9270-GY; J0456; J0696; J1644; J2930; J3475; J7512; J7644

== ENCOUNTER 2019-01-12 17:41 | Emergency (ER) | payer MEDICARE, OTHER ==
[2019-01-12 18:27] LABS: ABS Basophils 0.1 10^3/ul (0-0.2); ABS Eosinophils 0.1 10^3/ul (0-0.6); ABS Lymphocytes 0.9 10^3/ul (1.0-4.8); ABS Monocytes 0.8 10^3/ul (0-0.8); ABS Neutrophils 7.1 10^3/ul (1.5-7.7); ABS Nucleated RBC 0 10^3/ul; Eosinophil % 1.6 %; Hematocrit 48 % (36-46); Hemoglobin 16.5 g/dL (14.0-18.0); Lymphocyte % 10.4 %; Mean Corpuscular HGB Conc 35 g/dL (31-36); Mean Corpuscular Hemoglobin 30 pg (27-31); Mean Corpuscular Volume 86 fL (80-94); Mean Platelet Volume 8.9 fL (7.4-10.4); Nucleated Red Blood Cells % 0; Platelet Count 172 10^3/uL (150-450); Red Blood Count 5.53 10^6 /uL (4.18-5.48); Red Cell Distribution Width 15 % (10.5-15); White Blood Count 9.1 10^3/uL (3.5-10.8)
[2019-01-12 18:45] LABS: Albumin 4.2 g/dL (3.2-5.2); Albumin/Globulin Ratio 1.5 (1-3); BUN/Creatinine Ratio 14.3 (8-20); C Reactive Protein 38.64 mg/L (<8.01); Calcium 8.9 mg/dL (8.6-10.3); EGFR African American 116.2 (>60); Globulin 2.8 g/dL (2-4); Potassium 3.7 mmol/L (3.5-5.0); Total Bilirubin 0.6 mg/dL (0.2-1.0)
[2019-01-12 18:46] LABS: Troponin I 0.01 ng/mL (<0.04)
--- NOTE | 2019-01-12 19:31 | ED ---
Shortness of Breath - HPI Summary HPI Summary: This pt is an 84 y/o male, with hx of COPD, presenting to [facility] c/o SOB for the past 5 days. Pt reports he was diagnosed with bronchitis 2 weeks ago and was placed on Levaquin and Prednisone. Pt completed the treatment and states he was good for a couple of days last week until 01/07/19. He notes that since then he has had SOB with associated cough. Today he reports productive cough with yellow sputum. Pt also reports decreased appetite and swelling in ankles. Denies fever, chest pain. Denies hx of cardiac disease. Pt is a former smoker, quit about 50 years ago. Pt wears 2L of O2 at home at baseline. - History of Current Complaint Chief Complaint: EDShortnessOfBreath Time Seen by Provider: 01/12/19 19:25 Hx Obtained From: Patient Onset/Duration: Lasting Days, Still Present Timing: Constant Current Severity: Moderate Dyspnea At: Rest Aggrevating Factors: Nothing Alleviating Factors: Oxygen Associated Signs & Symptoms: Cough (Productive), Edema - in ankles - Allergy/Home Medications Allergies/Adverse Reactions: Allergies Allergy/AdvReac Type Severity Reaction Status Date / Time Egg Derived Allergy Unknown Verified 01/12/19 17:51 Reaction Details Home Medications: Home Medications Atenolol TAB* [Tenormin TAB* 25 MG] 25 mg PO DAILY 01/12/19 [History Confirmed 01/12/19] Fluticasone-Salmeterol 500-50* [Advair Diskus 500-50*] 1 puff INH BID 01/12/19 [ History Confirmed 01/12/19] Meclizine TAB* [Antivert 12.5 TAB*] 12.5 mg PO TID PRN 01/12/19 [History Confirmed 01/12/19] Melatonin 5 mg PO BEDTIME PRN 01/12/19 [History Confirmed 01/12/19] Nystatin SUSPENSION ORAL SYR* 100,000 units PO QID PRN 01/12/19 [History Confirmed 01/12/19] Tamsulosin CAP* [Flomax CAP*] 0.4 mg PO DAILY 01/12/19 [History Confirmed ] PMH/Surg Hx/FS Hx/Imm Hx Cardiovascular History: Reports: Hx Hypertension Respiratory History: Reports: Hx Chronic Obstructive Pulmonary Disease (COPD), Hx Pneumonia Sensory History: Reports: Hx Contacts or Glasses Denies: Hx Hearing Aid Opthamlomology History: Reports: Hx Contacts or Glasses Infectious Disease History: No Infectious Disease History: Denies: Traveled Outside the [place] in Last 30 Days - Family History Known Family History: Positive: Hypertension Negative: Diabetes - Social History Alcohol Use: None Substance Use Type: Reports: None Smoking Status (MU): Former Smoker Review of Systems Constitutional: Other - POS: decreased appetite Negative: Fever Negative: Chest Pain Positive: Shortness Of Breath, Cough Positive: Edema - in ankles All Other Systems Reviewed And Are Negative: Yes Physical Exam - Summary Physical Exam Summary: Appearance: Well-appearing, Well-nourished, lying in bed comfortably Skin: Warm, dry, no obvious rash Eyes: sclera anicteric, no conjunctival pallor ENT: mucous membranes moist, pharynx appears normal Neck: Supple, nontender Respiratory: Diminished breath sound with intermittent expiratory wheezes. No abnormal changes with percussion. Cardiovascular: Normal S1, S2. No murmurs. Normal distal pulses in tibial and radial bilaterally. Abdomen: Soft, nontender, normal active bowel sounds present Musculoskeletal: Normal, Strength/ROM Intact Neurological: A&Ox3, awake and alert, mentation is normal, speech is fluent and appropriate Psychiatric: affect is normal, does not appear anxious or depressed Triage Information Reviewed: Yes Vital Signs On Initial Exam: Initial Vitals Temp Pulse Resp BP Pulse Ox 97.5 F 88 20 149/104 98 01/12/19 17:45 01/12/19 17:45 01/12/19 17:45 01/12/19 17:45 01/12/19 17:45 Vital Signs Reviewed: Yes Diagnostics - Vital Signs Vital Signs Temp Pulse Resp BP Pulse Ox 01/12/19 17:45 97.5 F 88 20 149/104 98 - Laboratory Lab Results: Lab Results 01/12/19 01/12/19 01/12/19 Range/Units 18:15 18:15 18:15 WBC 9.1 (3.5-10.8) 10^3/uL RBC 5.53 H (4.18-5.48) 10^6 /uL Hgb 16.5 (14.0-18.0) g/dL Hct 48 H (36-46) % MCV 86 (80-94) fL MCH 30 (27-31) pg MCHC 35 (31-36) g/dL RDW 15 (10.5-15) % Plt Count 172 (150-450) 10^3/uL MPV 8.9 (7.4-10.4) fL Neut % (Auto) 78.6 % Lymph % (Auto) 10.4 % [place] % (Auto) 8.6 % Eos % (Auto) 1.6 % Baso % (Auto) 0.8 % Absolute Neuts (auto) 7.1 (1.5-7.7) 10^3/ul Absolute Lymphs (auto) 0.9 L (1.0-4.8) 10^3/ul Absolute Monos (auto) 0.8 (0-0.8) 10^3/ul Absolute Eos (auto) 0.1 (0-0.6) 10^3/ul Absolute Basos (auto) 0.1 (0-0.2) 10^3/ul Absolute Nucleated RBC 0 10^3/ul Nucleated RBC % 0 Sodium 138 (135-145) mmol/L Potassium 3.7 (3.5-5.0) mmol/L Chloride 103 (101-111) mmol/L Carbon Dioxide 28 (22-32) mmol/L Anion Gap 7 (2-11) mmol/L BUN 11 (6-24) mg/dL Creatinine 0.77 (0.67-1.17) mg/dL Est GFR ( Amer) 116.2 (>60) Est GFR (Non-Af Amer) 96.0 (>60) BUN/Creatinine Ratio 14.3 (8-20) Glucose 110 H (70-100) mg/dL Calcium 8.9 (8.6-10.3) mg/dL Total Bilirubin 0.60 (0.2-1.0) mg/dL AST 19 (13-39) U/L ALT 16 (7-52) U/L Alkaline Phosphatase 75 (34-104) U/L Troponin I 0.01 (<0.04) ng/mL C-Reactive Protein 38.64 H (<8.01) mg/L B-Natriuretic Peptide 105 H (<=100) pg/mL Total Protein 7.0 (6.4-8.9) g/dL Albumin 4.2 (3.2-5.2) g/dL Globulin 2.8 (2-4) g/dL Albumin/Globulin Ratio 1.5 (1-3) Result Diagrams: 01/12/19 18:15 01/12/19 18:15 Lab Statement: Any lab studies that have been ordered have been reviewed, and results considered in the medical decision making process. - Radiology chest XR Radiology Interpretation Completed By: ED Physician Summary of Radiographic Findings: Negative chest XR. - EKG 17:58 Cardiac Rate: NL - at 78 bpm EKG Rhythm: Sinus Rhythm Summary of EKG Findings: NSR at 78 bpm Course/Dx - Course Assessment/Plan: Pt is an 84 y/o male, with hx of COPD, who presents with SOB for the past 5 days. Pt reports he was dx with bronchitis 2 weeks ago and was placed on Levaquin and Prednisone. Pt completed the treatment and states he was good for a couple of days last week until 01/07/19. He notes that since then he has had SOB with associated cough. Lab results only remarkable for CRP of 38.64. Chest XR is negative. Pt was given Azithromycin and prednisone in the ED course. Pt will be discharged home with follow up fom his PCP. He was given rx for azithromycin and prednisone. - Diagnoses Provider Diagnoses: COPD exacerbation Discharge - Sign-Out/Discharge Documenting (check all that apply): Patient Departure - Discharge home Patient Received Moderate/Deep Sedation with Procedure: No - Discharge Plan Condition: Good Disposition: HOME Prescriptions: Azithromycin TAB* [Zithromax TAB (Z-YULI) 250 mg #6 tabs] 250 mg PO DAILY #4 tab predniSONE [Prednisone 20 MG TAB] 40 mg PO DAILY 5 Days #10 tablet Patient Education Materials: COPD (Chronic Obstructive Pulmonary Disease) (ED) Referrals: Maurice Jason MD [Primary Care Provider] - 1 Week - Billing Disposition and Condition Condition: GOOD Disposition: Home - Attestation Statements Document Initiated by Scribe: Yes Documenting Scribe: Norma Sarabia Provider For Whom Han is Documenting (Include Credential): Shayan Alba MD Scribe Attestation: Norma Michel scribed for Shayan Alba MD on 01/13/19 at 1420. Scribe Documentation Reviewed: Yes Provider Attestation: The documentation as recorded by the Norma elliott accurately reflects the service I personally performed and the decisions made by me, Shayan Alba MD Status of Scribe Document: Viewed
[2019-01-12] MEDS ORDERED: predniSONE TAB* 20 MG PO ONE (19:37)
[2019-01-12] MEDS ORDERED: Azithromycin TAB* 250 MG PO ONE (19:37)
[2019-01-12 20:10] VITALS: BP 131/72
== END 2019-01-12 21:02 | disposition home or self-care (01) ==
LOC: ED 17:41
DX: J44.1 Chronic obstructive pulmonary disease with (acute) exacerbation (principal); R05 Cough; R60.9 Edema, unspecified; I10 Essential (primary) hypertension; Z87.891 Personal history of nicotine dependence
CPT/HCPCS: 36415; 71046; 80053; 83880; 84484; 85025; 86140; 93005; 99283; A9270-GY; J7512

== ENCOUNTER 2019-01-18 13:07 | Inpatient (IN) | payer MEDICARE ==
[2019-01-18 15:08] LABS: ABS Basophils 0 10^3/ul (0-0.2); ABS Eosinophils 0 10^3/ul (0-0.6); ABS Lymphocytes 0.3 10^3/ul (1.0-4.8); ABS Monocytes 0.4 10^3/ul (0-0.8); ABS Neutrophils 14.1 10^3/ul (1.5-7.7); ABS Nucleated RBC 0 10^3/ul; Eosinophil % 0 %; Hematocrit 50 % (36-46); Hemoglobin 16.7 g/dL (14.0-18.0); Mean Corpuscular HGB Conc 33 g/dL (31-36); Mean Corpuscular Hemoglobin 29 pg (27-31); Mean Corpuscular Volume 86 fL (80-94); Nucleated Red Blood Cells % 0; Platelet Count 235 10^3/uL (150-450); Red Blood Count 5.87 10^6 /uL (4.18-5.48); Red Cell Distribution Width 15 % (10.5-15); White Blood Count 14.8 10^3/uL (3.5-10.8)
[2019-01-18 15:23] LABS: Influenza A Molecular NEGATIVE (Negative); Influenza B Molecular NEGATIVE (Negative)
[2019-01-18 15:24] LABS: Albumin 4.3 g/dL (3.2-5.2); Albumin/Globulin Ratio 1.5 (1-3); BUN/Creatinine Ratio 20.2 (8-20); Calcium 9.4 mg/dL (8.6-10.3); EGFR African American 98.3 (>60); EGFR Non-African American 81.2 (>60); Globulin 2.8 g/dL (2-4); Potassium 3.8 mmol/L (3.5-5.0); Total Bilirubin 0.7 mg/dL (0.2-1.0); Total Protein 7.1 g/dL (6.4-8.9)
[2019-01-18 15:25] LABS: Troponin I 0.01 ng/mL (<0.04)
[2019-01-18] MEDS ORDERED: Albuterol/Ipratropium NEB.SOL* Albuterol 2.5 MG/Ipratropium 0.5 MG 3 ML INH ONE ×2 (16:07→17:43)
[2019-01-18] MEDS ORDERED: Dexamethasone IV* 4 MG/ML 1 ML (4 MG) IV SLOW PU ONE (16:08)
--- NOTE | 2019-01-18 16:11 | ED ---
Shortness of Breath - HPI Summary HPI Summary: This patient is an 84 year old M presenting to [facility] accompanied by daughter with a chief complaint of SOB that began 3 weeks ago. The patient rates the pain 0/10 in severity. Symptoms aggravated by nothing. Symptoms alleviated by nothing. Patient reports blurred vision, weakness, and cough. Pt denies any fever, chills, erythema of eyes, sore throat, CP, abdominal pain, N/V, dysuria, hematuria, myalgia, edema, rash, dizziness, numbness, or tingling. Patient states he was diagnosed with bronchitis 3 weeks ago, and was seen here for the same symptoms on 01/14/2019 and has not improved since. Patient states he has been previously admitted for pneumonia. - History of Current Complaint Chief Complaint: EDShortnessOfBreath Time Seen by Provider: 01/18/19 15:31 Hx Obtained From: Patient Onset/Duration: Sudden Onset, Lasting Weeks, Still Present Timing: Constant Current Severity: Mild Dyspnea At: Rest Aggrevating Factors: Nothing Alleviating Factors: Nothing Associated Signs & Symptoms: Cough (Productive) - Allergy/Home Medications Allergies/Adverse Reactions: Allergies Allergy/AdvReac Type Severity Reaction Status Date / Time Egg Derived Allergy Unknown Verified 01/18/19 13:08 Reaction Details PMH/Surg Hx/FS Hx/Imm Hx Previously Healthy: No Cardiovascular History: Reports: Hx Hypertension Respiratory History: Reports: Hx Chronic Obstructive Pulmonary Disease (COPD), Hx Pneumonia Sensory History: Reports: Hx Contacts or Glasses Denies: Hx Hearing Aid Opthamlomology History: Reports: Hx Contacts or Glasses Infectious Disease History: No Infectious Disease History: Denies: Traveled Outside the [place] in Last 30 Days - Family History Known Family History: Positive: Hypertension Negative: Diabetes - Social History Occupation: Retired Lives: With Family Alcohol Use: None Hx Substance Use: No Substance Use Type: Reports: None Hx Tobacco Use: Yes Smoking Status (MU): Former Smoker Review of Systems Negative: Fever, Chills Positive: Blurred Vision. Negative: Erythema Negative: Sore Throat Negative: Chest Pain Positive: Shortness Of Breath, Cough Negative: Abdominal Pain, Vomiting, Nausea Negative: dysuria, hematuria Negative: Myalgia, Edema Negative: Rash Neurological: Other - Negative dizziness and tingling Negative: Numbness All Other Systems Reviewed And Are Negative: Yes Physical Exam - Summary Physical Exam Summary: Constitutional: Well-developed, Well-nourished, Alert. (-) Distressed Skin: Warm, Dry HENT: Normocephalic; Atraumatic Eyes: Conjunctiva normal Neck: Musculoskeletal ROM normal neck. (-) JVD, (-) Stridor, (-) Tracheal deviation Cardio: Rhythm regular, rate normal, Heart sounds normal; Intact distal pulses; The pedal pulses are 2+ and symmetric. Radial pulses are 2+ and symmetric. (-) Murmur Pulmonary/Chest wall: Effort normal. (-) Respiratory distress, (-) Wheezes, (-) Rales, Extremely dimished airflow Abd: Soft, (-) tenderness, (-) Distension, (-) Guarding, (-) Rebound Musculoskeletal: (-) Edema Lymph: (-) Cervical adenopathy Neuro: Alert, Oriented x3 Psych: Mood and affect Normal Triage Information Reviewed: Yes Vital Signs On Initial Exam: Initial Vitals Temp Pulse Resp BP Pulse Ox 97.2 F 101 18 144/80 93 01/18/19 13:08 01/18/19 13:08 01/18/19 13:08 01/18/19 13:08 01/18/19 13:08 Vital Signs Reviewed: Yes Diagnostics - Vital Signs Vital Signs Temp Pulse Resp BP Pulse Ox 01/18/19 15:45 68 19 137/77 96 01/18/19 15:15 78 27 117/67 95 01/18/19 15:11 21 01/18/19 15:00 77 19 96 01/18/19 14:45 86 92 01/18/19 14:44 88 163/90 86 01/18/19 13:08 97.2 F 101 18 144/80 93 - Laboratory Lab Results: Lab Results 01/18/19 01/18/19 01/18/19 Range/Units 14:57 14:57 14:57 WBC 14.8 H (3.5-10.8) 10^3/uL RBC 5.87 H (4.18-5.48) 10^6 /uL Hgb 16.7 (14.0-18.0) g/dL Hct 50 H (36-46) % MCV 86 (80-94) fL MCH 29 (27-31) pg MCHC 33 (31-36) g/dL RDW 15 (10.5-15) % Plt Count 235 (150-450) 10^3/uL MPV 10.0 (7.4-10.4) fL Neut % (Auto) 95.4 % Lymph % (Auto) 2.0 % Roberts % (Auto) 2.4 % Eos % (Auto) 0 % Baso % (Auto) 0.2 % Absolute Neuts (auto) 14.1 H (1.5-7.7) 10^3/ul Absolute Lymphs (auto) 0.3 L (1.0-4.8) 10^3/ul Absolute Monos (auto) 0.4 (0-0.8) 10^3/ul Absolute Eos (auto) 0 (0-0.6) 10^3/ul Absolute Basos (auto) 0 (0-0.2) 10^3/ul Absolute Nucleated RBC 0 10^3/ul Nucleated RBC % 0 Sodium 140 (135-145) mmol/L Potassium 3.8 (3.5-5.0) mmol/L Chloride 103 (101-111) mmol/L Carbon Dioxide 29 (22-32) mmol/L Anion Gap 8 (2-11) mmol/L BUN 18 (6-24) mg/dL Creatinine 0.89 (0.67-1.17) mg/dL Est GFR ( Amer) 98.3 (>60) Est GFR (Non-Af Amer) 81.2 (>60) BUN/Creatinine Ratio 20.2 H (8-20) Glucose 132 H (70-100) mg/dL Lactic Acid 1.8 (0.5-2.0) mmol/L Calcium 9.4 (8.6-10.3) mg/dL Total Bilirubin 0.70 (0.2-1.0) mg/dL AST 18 (13-39) U/L ALT 22 (7-52) U/L Alkaline Phosphatase 77 (34-104) U/L Troponin I 0.01 (<0.04) ng/mL Total Protein 7.1 (6.4-8.9) g/dL Albumin 4.3 (3.2-5.2) g/dL Globulin 2.8 (2-4) g/dL Albumin/Globulin Ratio 1.5 (1-3) Influenza A (Rapid) (Negative) Influenza B (Rapid) (Negative) 01/18/19 Range/Units 14:57 WBC (3.5-10.8) 10^3/uL RBC (4.18-5.48) 10^6 /uL Hgb (14.0-18.0) g/dL Hct (36-46) % MCV (80-94) fL MCH (27-31) pg MCHC (31-36) g/dL RDW (10.5-15) % Plt Count (150-450) 10^3/uL MPV (7.4-10.4) fL Neut % (Auto) % Lymph % (Auto) % Roberts % (Auto) % Eos % (Auto) % Baso % (Auto) % Absolute Neuts (auto) (1.5-7.7) 10^3/ul Absolute Lymphs (auto) (1.0-4.8) 10^3/ul Absolute Monos (auto) (0-0.8) 10^3/ul Absolute Eos (auto) (0-0.6) 10^3/ul Absolute Basos (auto) (0-0.2) 10^3/ul Absolute Nucleated RBC 10^3/ul Nucleated RBC % Sodium (135-145) mmol/L Potassium (3.5-5.0) mmol/L Chloride (101-111) mmol/L Carbon Dioxide (22-32) mmol/L Anion Gap (2-11) mmol/L BUN (6-24) mg/dL Creatinine (0.67-1.17) mg/dL Est GFR ( Amer) (>60) Est GFR (Non-Af Amer) (>60) BUN/Creatinine Ratio (8-20) Glucose (70-100) mg/dL Lactic Acid (0.5-2.0) mmol/L Calcium (8.6-10.3) mg/dL Total Bilirubin (0.2-1.0) mg/dL AST (13-39) U/L ALT (7-52) U/L Alkaline Phosphatase (34-104) U/L Troponin I (<0.04) ng/mL Total Protein (6.4-8.9) g/dL Albumin (3.2-5.2) g/dL Globulin (2-4) g/dL Albumin/Globulin Ratio (1-3) Influenza A (Rapid) Negative (Negative) Influenza B (Rapid) Negative (Negative) Result Diagrams: 01/20/19 06:16 01/20/19 06:16 Lab Statement: Any lab studies that have been ordered have been reviewed, and results considered in the medical decision making process. - Radiology Chest XR Radiology Interpretation Completed By: Radiologist Summary of Radiographic Findings: CXR reveals, per radiologist, no active cardiopulmonary disease is noted. ED physician has reviewed this radiology report. - EKG 1455 Cardiac Rate: Bradycardia EKG Rhythm: Sinus Rhythm - [address] Segment: Normal Summary of EKG Findings: An EKG taken at 1455 reveals sinus bradycardia at 56 BPM with no STEMI. Re-Evaluation - Re-Evaluation First Eval Re-Evaluation Time: 18:10 Change: Unchanged Comment: The patient failed ambulation trial and couldnt exert himself. Referred to the hospitalist for failing outpatient treatment. Course/Dx - Course Course Of Treatment: This patient is an 84 year old M presenting to [facility] accompanied by daughter with a chief complaint of SOB that began 3 weeks ago. Physical Exam Findings: Extremely diminished airflow. Pt is failing outpatient prednisone and azithromycin will likely require readmission for IV steroid. An EKG taken at 1455 reveals sinus bradycardia at 56 BPM with no STEMI. CXR reveals , per radiologist, no active cardiopulmonary disease is noted. Bloodwork obtained. In the ED course the patient was given duoneb and Decadron. Consult with Dr. Fox (hospitalist) at 1810. He agrees to admit the patient for further evaluation. The patient is agreeable with this plan. - Diagnoses Provider Diagnoses: COPD exacerbation - Physician Notifications Discussed Care of Patient With: Bull Fox Time Discussed With Above Provider: 18:10 Instructed by Provider To: Other - Consult with Dr. Fox (hospitalist) at 1810. He agrees to admit the patient for further evaluation. Discharge - Sign-Out/Discharge Documenting (check all that apply): Patient Departure - Admit to [facility] Patient Received Moderate/Deep Sedation with Procedure: No - Discharge Plan Condition: Stable Disposition: ADMITTED TO [facility] - Billing Disposition and Condition Condition: STABLE Disposition: Admitted to [facility] - Attestation Statements Document Initiated by Scribe: Yes Documenting Scribe: Dea Dunne Provider For Whom Scribe is Documenting (Include Credential): MD Caleb Agarwale Attestation: I, Dea Dunne, scribed for Dr. Pedro Garcia MD on 01/22/19 at 1358. Scribe Documentation Reviewed: Yes Provider Attestation: The documentation as recorded by the scribe, Dea Dunne accurately reflects the service I personally performed and the decisions made by me, Dr. Pedro Garcia MD Status of Scribe Document: Viewed
[2019-01-18] MEDS ORDERED: Acetaminophen TAB* 325 MG PO PRN (19:12)
[2019-01-18] MEDS ORDERED: Albuterol/Ipratropium NEB.SOL* Albuterol 2.5 MG/Ipratropium 0.5 MG 3 ML INH PRN (19:12)
[2019-01-18] MEDS ORDERED: Al Hydrox/Mg Hydrox/Simet LIQ* 30 ML UDC PO PRN (19:12)
[2019-01-18] MEDS ORDERED: Meclizine TAB* 12.5 MG PO PRN (19:21)
[2019-01-18] MEDS ORDERED: Enoxaparin(*) 40 MG/0.4 ML SYR SUBCUT SCH (20:00)
[2019-01-18] MEDS: DOXYcycline IV* 100 MG in NS 0.9% 250 ML* 250 ML IVPB SCH (21:44)
[2019-01-18] MEDS: Albuterol HFA INHALER* 8 gm MDI INH PRN (22:06)
[2019-01-18] MEDS: Mometasone/Formoter 200/5 MDI INH SCH (22:08)
--- NOTE | 2019-01-18 22:31 | HP ---
CC: Dr. Maurice Jason at [facility] * HISTORY AND PHYSICAL: DATE OF ADMISSION: 01/18/19 PRIMARY CARE PHYSICIAN: Dr. Maurice Jason at [facility]. ATTENDING PHYSICIAN: Dr. Bull Fox * (dictated by DANNY Ventura) CHIEF COMPLAINT: Shortness of breath, worsening with new oxygen requirement. HISTORY OF PRESENT ILLNESS: Mookie Schneider is an 84-year-old white male with past medical history significant for COPD and hypertension who presents to the emergency department with shortness of breath that is not improving despite outpatient therapy. The patient was seen in the emergency department at [facility] on 01/12/19 and prescribed azithromycin for 5 days and prednisone taper for 10 days. The patient reports that he has not felt improved since this visit and additionally has needed to start using oxygen all the time starting 2 nights ago. The patient usually only uses oxygen only with exertion or showering at home. Of note, the patient was seen at his PCP at the [facility] in the first week of December, though the patient is unsure what date specifically. At this visit, he was prescribed 10 days of Levaquin and stopped taking it after 7 days in addition to steroid for a time period he is unsure of. He did start to feel better on this regimen and felt almost returned to his baseline when he then started having shortness of breath again and presented to the emergency department on 01/12/19. As previously mentioned, he has not improved since that time. During this period of time, he has had increased sputum production and yellow sputum. He typically has no sputum production and no chronic cough. For the last 2 nights, he has had difficulty lying flat due to shortness of breath and has been wearing oxygen at night. During this time, he has not had fevers or chills, chest pain, abdomen pain, nausea or vomiting or diarrhea. He also denies increased swelling to his lower extremities. ED COURSE: When the patient arrived to the emergency department, his vital signs were temperature of 97.2, heart rate of 101, respiratory rate 18, O2 saturation 93% on room air, blood pressure 144/80. In the emergency department , the patient did receive 8 mg of IV Decadron as well as DuoNeb on two different occasions. The patient does feel that his shortness of breath did improve after these DuoNebs; however, when ambulating, he was easily short of breath again and oxygen saturation dropped to 90% despite being on 2 L nasal cannula. Therefore, the hospitalists were asked to evaluate the patient for admission. PAST MEDICAL HISTORY: 1. COPD. 2. Hypertension. 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 5. BPH. 6. Arrhythmia, type unknown to the patient. PAST SURGICAL HISTORY: The patient denies surgical history. HOME MEDICATIONS: 1. Atenolol 25 mg p.o. daily. 2. Aspirin 81 mg p.o. daily 3. Ventolin inhaler 2 puffs inhaled 4 times a day p.r.n. shortness of breath or wheezing. 4. Ventolin nebulizer inhaled q.4 hours p.r.n. wheezing. 5. Meclizine 12.5 mg p.o. t.i.d. p.r.n. 6. Advair 1 puff inhaled b.i.d. 7. Vitamin B12 1000 mcg p.o. daily. 8. Vitamin D 1000 units p.o. daily. 9. Flomax 0.4 mg p.o. daily. 10. Nystatin oral suspension 1000 units p.o. 4 times a day p.r.n. oral thrush. 11. Multivitamin 1 tab p.o. daily. 12. Amlodipine 5 mg p.o. daily. 13. Spiriva 1 cap inhaled daily. ALLERGIES: No known drug allergies. FAMILY HISTORY: The patient denies any family history of coronary artery disease or diabetes. SOCIAL HISTORY: The patient is a former smoker who quit smoking 50 years ago. When he was smoking, he was smoking approximately 1 pack per day for a period of 10 years. The patient denies current alcohol use or drug use. 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. He is a and has 3 children, 2 of whom were adopted. The patient reports that should he need a surrogate medical decision maker that would be his daughter, Tasha, phone number is [phone]. REVIEW OF SYSTEMS: An 11-point review of systems was completed and all pertinent positives and negatives are above in HPI. All other systems are negative. PHYSICAL EXAMINATION GENERAL: Thin elderly male, lying upright in the emergency department stretcher , appearing in no acute distress. Daughter is at bedside. HEENT: Head: Normocephalic, atraumatic. Eyes: Sclerae anicteric. EOMI. PERRL. Hypertrophy of right cornea at 3 o'clock position of iris. ENT: Mucous membranes moist. NECK: Supple without JVD. LUNGS: Minimal end-expiratory wheezing in lower and middle lung barbosa bilaterally. Otherwise, no rhonchi or crackles. CARDIO: Regular rate and rhythm without murmurs, rubs, or gallops. ABDOMEN: Soft, nontender, and nondistended without palpable masses or hepatosplenomegaly. EXTREMITIES: No cyanosis, clubbing, or edema. NEUROLOGIC: No focal deficits. Alert and oriented x3. PSYCH: The patient is pleasant and cooperative. Not responding to internal stimuli. SKIN: Warm, dry, and intact. DIAGNOSTIC STUDIES/LAB DATA: White blood cell count 14.8, hemoglobin 16.7, hematocrit 50, platelets 235,000. Sodium 140, potassium 3.8, chloride 103, CO2 of 29, BUN 18, creatinine 0.89. Lactic acid 1.8. D-dimer 208. Troponin 0.01. Influenza A negative. Influenza B negative. Chest x-ray on 01/18/19, impression: "No active cardiopulmonary disease noted. " Lung hyperinflation consistent with COPD. EKG on 01/18/19: Irregularly irregular rhythm, P-waves present, no ST elevations or depressions, no T-wave inversions, normal axis. Similar to study on 01/12/19. ASSESSMENT AND PLAN: Mookie Schneider is an 84-year-old white male with past medical history significant for chronic obstructive pulmonary disease and hypertension, who presented to the emergency department with shortness of breath with new oxygen requirement and increased sputum production without improvement during outpatient therapy. The patient will be admitted under observation for: 1. Acute on chronic hypoxic respiratory failure. At home, the patient only requires oxygen supplementation with exertion such as showering. For the last several days, the patient has required oxygen at night and as well during the day. He was using 2 L at home and is using this much in the emergency department today. This is likely an exacerbation of his COPD, which has failed outpatient therapy twice now. He did experience some relief after his first treatment from his primary care provider almost 2 weeks ago but only received relief for approximately 2 to 3 days. Starting 40 mg prednisone orally and DuoNeb scheduled every 4 hours while awake. Continuing the patient's home p.r.n. Mercedes, Spiriva, and Advair. 2. Pneumonia. It appears the patient was treated for pneumonia outpatient with Levaquin and did have improvement of symptoms, but then regressed again requiring his presentation to the emergency department on 01/12/19. He has not had any changes in his symptomatology despite being given azithromycin. What I can assume from symptoms is that this is considered failed outpatient therapy on Levaquin and azithromycin and I will treat this with IV doxycycline. The patient does have leukocytosis, but I suspect this is because he has been on prednisone since leaving the emergency department on 01/12/19. He has not experienced any fevers or chills during this time. Ordering sputum culture, Legionella and strep urine antigens. The patient has already had a negative influenza A/B test in the emergency department. 3. Hypertension. Continue the patient's home amlodipine. The patient has been normotensive in the emergency department since and we will continue to monitor. 4. Arrhythmia. The patient is unsure of the type of arrhythmia that he has, but knows that this is why he is taking atenolol. We will continue his home atenolol. He does have irregular rhythm on EKG and the patient is asymptomatic and without tachycardia. 5. FEN. Unrestricted regular diet. Electrolytes are within normal limits. 6. Code status. The patient is full code. 7. DVT prophylaxis. The patient is high risk for deep venous thrombosis and will be given 40 mg of Lovenox daily during his stay. TIME SPENT: Approximately 50 minutes were spent on this admission, approximately half of this time was spent at bedside. This case has been reviewed by my attending, Dr. Bull Fox, and he agrees with this plan of care. DANNY VENTURA [id number]/[facility] #: [id number] [place]
[2019-01-19] MEDS: Tiotropium CAP.INH* CAP.INH/18 MCG (USE ORDER SET !) INH SCH (07:56)
[2019-01-19] MEDS: Mometasone/Formoter 200/5 MDI INH SCH ×2 (07:57→20:16)
[2019-01-19] MEDS: Albuterol HFA INHALER* 8 gm MDI INH PRN ×2 (07:57→20:16)
[2019-01-19] MEDS ORDERED: NS 0.9% 250 ML* 250 ML ONE (08:42)
[2019-01-19] MEDS: predniSONE TAB* 20 MG PO SCH (08:47)
[2019-01-19] MEDS: Aspirin EC TAB* 81 MG TAB.EC PO SCH (08:47)
[2019-01-19] MEDS: Cyanocobalamin TAB* 500 MCG PO SCH (08:47)
[2019-01-19] MEDS: Cholecalciferol TAB* 1000 UNITS PO SCH (08:47)
[2019-01-19] MEDS: Atenolol TAB* 25 MG PO SCH (08:47)
[2019-01-19] MEDS: Tamsulosin CAP* 0.4 MG PO SCH (08:47)
[2019-01-19] MEDS: Multivitamins/Minerals TAB PO SCH (08:47)
[2019-01-19 08:58] LABS: ABS Basophils 0 10^3/ul (0-0.2); ABS Eosinophils 0 10^3/ul (0-0.6); ABS Lymphocytes 0.6 10^3/ul (1.0-4.8); ABS Monocytes 0.6 10^3/ul (0-0.8); ABS Nucleated RBC 0 10^3/ul; Eosinophil % 0 %; Hematocrit 48 % (36-46); Lymphocyte % 5.2 %; Mean Corpuscular HGB Conc 33 g/dL (31-36); Mean Corpuscular Hemoglobin 29 pg (27-31); Mean Corpuscular Volume 86 fL (80-94); Mean Platelet Volume 9.4 fL (7.4-10.4); Nucleated Red Blood Cells % 0.1; Platelet Count 221 10^3/uL (150-450); Red Blood Count 5.59 10^6 /uL (4.18-5.48); Red Cell Distribution Width 15 % (10.5-15); White Blood Count 11.2 10^3/uL (3.5-10.8)
[2019-01-19] MEDS ORDERED: Spiriva Inhaler DEVICE* 1 EACH DEVICE INH ONE (09:00)
[2019-01-19] MEDS: amLODIPine TAB* 5 MG PO SCH (09:01)
[2019-01-19 09:13] LABS: BUN/Creatinine Ratio 24.7 (8-20); Calcium 9.1 mg/dL (8.6-10.3); EGFR African American 109.6 (>60); EGFR Non-African American 90.6 (>60); Potassium 3.9 mmol/L (3.5-5.0)
[2019-01-19] MEDS: DOXYcycline IV* 100 MG in NS 0.9% 250 ML* 250 ML IVPB SCH (10:05)
--- NOTE | 2019-01-19 15:26 | PN ---
Subjective Date of Service: 01/19/19 Interval History: Pt seen and examined. Meds and labs reviewed. CC: Feels tired during most days ROS: Denied URBAN/dizziness, F/C, N/V, CP, SOB, increased cough, sputum production , abd pain, diarrhea, constipation, dysuria, myalgias, arthralgias, throat pain , and new skin lesions. The rest of the 14 point ROS are unremarkable. PHYSICAL EXAM: GEN APPEARANCE: Awake, not in acute distress HEENT: NC/AT, PERRLA, moist oral mucosa, (-) throat erythema NECK: Soft, supple, (-) cervical LAD, (-)JVD HEART: S1S2 WNL, RRR, No MRG CHEST: CTA, BL, GAE, No W/R/R ABD: Soft, ND/NT, NABS 4x Q EXT: No C/C/E SKIN: Warm to touch PSYCH: No active psychosis, hallucinations, depression, SI/HI Objective Active Medications: Acetaminophen (Tylenol Tab*) 650 mg PO Q4H PRN PRN Reason: FEVER/PAIN Al Hydrox/Mg Hydrox/Simethicone (Maalox Plus*) 30 ml PO Q6H PRN PRN Reason: INDIGESTION Albuterol (Ventolin Hfa Inhaler*) 2 puff INH QID PRN PRN Reason: SHORTNESS OF BREATH Last Admin: 01/19/19 07:57 Dose: 2 puff Albuterol/Ipratropium (Duoneb (Albuterol 2.5 Mg/Ipratropium 0.5 Mg)) 1 neb INH [id number] AWAKE PRN PRN Reason: sob/wheexing Amlodipine Besylate (Norvasc Tab*) 5 mg PO DAILY [facility] Last Admin: 01/19/19 09:01 Dose: 5 mg Aspirin (Aspirin Ec Tab*) 81 mg PO DAILY [facility] Last Admin: 01/19/19 08:47 Dose: 81 mg Atenolol (Tenormin Tab*) 25 mg PO DAILY [facility] Last Admin: 01/19/19 08:47 Dose: 25 mg Cholecalciferol (Vitamin D Tab*) 1,000 units PO DAILY [facility] Last Admin: 01/19/19 08:47 Dose: 1,000 units Cyanocobalamin (Vitamin B12 Tab*) 1,000 mcg PO DAILY [facility] Last Admin: 04/22/19 08:47 Dose: 1,000 mcg Enoxaparin Sodium (Lovenox(*)) 30 mg SUBCUT Q24H [facility] Meclizine HCl (Antivert Tab*) 12.5 mg PO TID PRN PRN Reason: DIZZINESS Mometasone Furoate/Formoterol Fumar (Dulera 200/5 Mdi*) 2 puff INH BID [facility] Last Admin: 01/19/19 07:57 Dose: 2 puff Multivitamins/Minerals (Theragran/Minerals Tab*) 1 tab PO DAILY [facility] Last Admin: 01/19/19 08:47 Dose: 1 tab Prednisone (Deltasone Tab*) 40 mg PO DAILY [facility] Last Admin: 01/19/19 08:47 Dose: 40 mg Tamsulosin HCl (Flomax Cap*) 0.4 mg PO DAILY [facility] Last Admin: 01/19/19 08:47 Dose: 0.4 mg Tiotropium [place] (Spiriva Cap.Inh*) 1 cap INH DAILY [facility] Last Admin: 01/19/19 07:56 Dose: 1 cap Vital Signs - 8 hr 01/19/19 01/19/19 01/19/19 08:01 08:30 10:59 Temperature 97.6 F 97.2 F Pulse Rate 78 82 68 Respiratory 18 18 17 Rate Blood Pressure 132/70 143/65 (mmHg) O2 Sat by Pulse 96 95 97 Oximetry 01/19/19 13:30 Temperature Pulse Rate Respiratory Rate Blood Pressure (mmHg) O2 Sat by Pulse 82 Oximetry Oxygen Devices in Use Now: Nasal Cannula Result Diagrams: 01/19/19 08:15 01/19/19 08:15 Additional Lab and Data: Lab Results 01/18/19 01/18/19 01/18/19 Range/Units 14:57 14:57 14:57 WBC 14.8 H (3.5-10.8) 10^3/uL RBC 5.87 H (4.18-5.48) 10^6 /uL Hgb 16.7 (14.0-18.0) g/dL Hct 50 H (36-46) % MCV 86 (80-94) fL MCH 29 (27-31) pg MCHC 33 (31-36) g/dL RDW 15 (10.5-15) % Plt Count 235 (150-450) 10^3/uL MPV 10.0 (7.4-10.4) fL Neut % (Auto) 95.4 % Lymph % (Auto) 2.0 % Woodward % (Auto) 2.4 % Eos % (Auto) 0 % Baso % (Auto) 0.2 % Absolute Neuts (auto) 14.1 H (1.5-7.7) 10^3/ul Absolute Lymphs (auto) 0.3 L (1.0-4.8) 10^3/ul Absolute Monos (auto) 0.4 (0-0.8) 10^3/ul Absolute Eos (auto) 0 (0-0.6) 10^3/ul Absolute Basos (auto) 0 (0-0.2) 10^3/ul Absolute Nucleated RBC 0 10^3/ul Nucleated RBC % 0 Sodium 140 (135-145) mmol/L Potassium 3.8 (3.5-5.0) mmol/L Chloride 103 (101-111) mmol/L Carbon Dioxide 29 (22-32) mmol/L Anion Gap 8 (2-11) mmol/L BUN 18 (6-24) mg/dL Creatinine 0.89 (0.67-1.17) mg/dL Est GFR ( Amer) 98.3 (>60) Est GFR (Non-Af Amer) 81.2 (>60) BUN/Creatinine Ratio 20.2 H (8-20) Glucose 132 H (70-100) mg/dL Lactic Acid 1.8 (0.5-2.0) mmol/L Calcium 9.4 (8.6-10.3) mg/dL Total Bilirubin 0.70 (0.2-1.0) mg/dL AST 18 (13-39) U/L ALT 22 (7-52) U/L Alkaline Phosphatase 77 (34-104) U/L Troponin I 0.01 (<0.04) ng/mL Total Protein 7.1 (6.4-8.9) g/dL Albumin 4.3 (3.2-5.2) g/dL Globulin 2.8 (2-4) g/dL Albumin/Globulin Ratio 1.5 (1-3) Influenza A (Rapid) (Negative) Influenza B (Rapid) (Negative) 01/18/19 Range/Units 14:57 WBC (3.5-10.8) 10^3/uL RBC (4.18-5.48) 10^6 /uL Hgb (14.0-18.0) g/dL Hct (36-46) % MCV (80-94) fL MCH (27-31) pg MCHC (31-36) g/dL RDW (10.5-15) % Plt Count (150-450) 10^3/uL MPV (7.4-10.4) fL Neut % (Auto) % Lymph % (Auto) % Woodward % (Auto) % Eos % (Auto) % Baso % (Auto) % Absolute Neuts (auto) (1.5-7.7) 10^3/ul Absolute Lymphs (auto) (1.0-4.8) 10^3/ul Absolute Monos (auto) (0-0.8) 10^3/ul Absolute Eos (auto) (0-0.6) 10^3/ul Absolute Basos (auto) (0-0.2) 10^3/ul Absolute Nucleated RBC 10^3/ul Nucleated RBC % Sodium (135-145) mmol/L Potassium (3.5-5.0) mmol/L Chloride (101-111) mmol/L Carbon Dioxide (22-32) mmol/L Anion Gap (2-11) mmol/L BUN (6-24) mg/dL Creatinine (0.67-1.17) mg/dL Est GFR ( Amer) (>60) Est GFR (Non-Af Amer) (>60) BUN/Creatinine Ratio (8-20) Glucose (70-100) mg/dL Lactic Acid (0.5-2.0) mmol/L Calcium (8.6-10.3) mg/dL Total Bilirubin (0.2-1.0) mg/dL AST (13-39) U/L ALT (7-52) U/L Alkaline Phosphatase (34-104) U/L Troponin I (<0.04) ng/mL Total Protein (6.4-8.9) g/dL Albumin (3.2-5.2) g/dL Globulin (2-4) g/dL Albumin/Globulin Ratio (1-3) Influenza A (Rapid) Negative (Negative) Influenza B (Rapid) Negative (Negative) Microbiology and Other Data: Microbiology 01/18/19 15:07 Aerobic Blood Culture - Preliminary Blood Venous No Growth Day 1 Anaerobic Blood Culture - Preliminary No Growth Day 1 01/18/19 14:57 Aerobic Blood Culture - Preliminary Blood Venous No Growth Day 1 Anaerobic Blood Culture - Preliminary No Growth Day 1 01/18/19 19:19 Legionella Urinary Antigen - Final Urine Negative Legionella Antigen Streptococcus pneumoniae Ag Screen - Final Negative S. pneumo Antigen Assess/Plan/Problems-Billing Assessment: - Patient Problems (1) COPD with exacerbation Current Visit: No Status: Acute Code(s): J44.1 - CHRONIC OBSTRUCTIVE PULMONARY DISEASE W (ACUTE) EXACERBATION SNOMED Code(s): 837002758 Comment: -Likely cause of acute on chronic hypoxic respiratory failure -CXR: NAD and no signs of PNA -Continue Prednisone and frequent nebs -For ambulatory sats in AM -Will D/C Doxycycline as there are no new findings and has finished Azithromycin x 5 days recently -Leukocytosis improved; could be due to microaspiration as pt mentions he woke ups SOB? -Will obtain ABG (2) Hypertension Current Visit: No Status: Chronic Code(s): I10 - ESSENTIAL (PRIMARY) HYPERTENSION SNOMED Code(s): 42032899 Comment: -Well controlled -Continue Amlodipine and Atenolol (3) BPH (benign prostatic hyperplasia) Current Visit: Yes Status: Acute Code(s): N40.0 - BENIGN PROSTATIC HYPERPLASIA WITHOUT LOWER URINRY TRACT SYMP SNOMED Code(s): 345174319 Comment: -Continue Tamsulosin (4) DVT prophylaxis Current Visit: No Status: Acute Code(s): HEE7252 - SNOMED Code(s): 787469316 Comment: -Will Lower Lovenox to 30 mg SQ given advanced age Status and Disposition: -For PT eval
[2019-01-19] MEDS ORDERED: Enoxaparin(*) 30 MG/0.3 ML SYR SUBCUT SCH (21:00)
[2019-01-20 06:48] LABS: ABS Basophils 0.2 10^3/ul (0-0.2); ABS Eosinophils 0 10^3/ul (0-0.6); ABS Lymphocytes 1.1 10^3/ul (1.0-4.8); ABS Monocytes 1.2 10^3/ul (0-0.8); ABS Neutrophils 12.2 10^3/ul (1.5-7.7); ABS Nucleated RBC 0 10^3/ul; Eosinophil % 0.1 %; Hematocrit 47 % (36-46); Hemoglobin 15.5 g/dL (14.0-18.0); Lymphocyte % 7.7 %; Mean Corpuscular HGB Conc 33 g/dL (31-36); Mean Corpuscular Hemoglobin 28 pg (27-31); Mean Corpuscular Volume 86 fL (80-94); Mean Platelet Volume 9.4 fL (7.4-10.4); Nucleated Red Blood Cells % 0; Platelet Count 220 10^3/uL (150-450); Red Blood Count 5.48 10^6 /uL (4.18-5.48); Red Cell Distribution Width 15 % (10.5-15); White Blood Count 14.7 10^3/uL (3.5-10.8)
[2019-01-20 07:02] LABS: Albumin 3.6 g/dL (3.2-5.2); Albumin/Globulin Ratio 1.7 (1-3); BUN/Creatinine Ratio 29.4 (8-20); Calcium 8.8 mg/dL (8.6-10.3); EGFR African American 103.7 (>60); EGFR Non-African American 85.7 (>60); Globulin 2.1 g/dL (2-4); Magnesium 2.3 mg/dL (1.9-2.7); Phosphorus 2.7 mg/dL (2.5-5.0); Potassium 4.5 mmol/L (3.5-5.0); Total Bilirubin 0.8 mg/dL (0.2-1.0); Total Protein 5.7 g/dL (6.4-8.9)
[2019-01-20 07:13] LABS: TSH (Thyroid Stimulating Horm) 1.09 mcIU/mL (0.34-5.60)
[2019-01-20] MEDS: Mometasone/Formoter 200/5 MDI INH SCH (08:21)
[2019-01-20] MEDS: Tiotropium CAP.INH* CAP.INH/18 MCG (USE ORDER SET !) INH SCH (08:22)
[2019-01-20] MEDS: Tamsulosin CAP* 0.4 MG PO SCH (09:04)
[2019-01-20] MEDS: amLODIPine TAB* 5 MG PO SCH (09:04)
[2019-01-20] MEDS: Multivitamins/Minerals TAB PO SCH (09:06)
[2019-01-20] MEDS: predniSONE TAB* 20 MG PO SCH (09:08)
[2019-01-20] MEDS: Aspirin EC TAB* 81 MG TAB.EC PO SCH (09:09)
[2019-01-20] MEDS: Cholecalciferol TAB* 1000 UNITS PO SCH (09:09)
[2019-01-20] MEDS: Atenolol TAB* 25 MG PO SCH (09:10)
[2019-01-20] MEDS: Cyanocobalamin TAB* 500 MCG PO SCH (09:10)
[2019-01-20 15:43] VITALS: BP 118/49
--- NOTE | 2019-01-20 22:17 | DS ---
CC: Dr. Brown Pritchard; Dr. Pedro Garcia; Dr. Maurice Jason * DISCHARGE SUMMARY: DATE OF ADMISSION: DATE OF DISCHARGE: 01/20/19 DISCHARGE CONDITION: Stable. DISPOSITION: To be discharged home with home O2 at 2 L nasal cannula on exertion or walking. DISCHARGE DIAGNOSES: As follows: 1. Chronic obstructive pulmonary disease exacerbation, mild, improved. 2. Hypertension, history of. 3. Benign prostatic hypertrophy, history of. DISCHARGE MEDICATIONS: As follows: 1. Albuterol 2 puffs inhalation 4 times a day p.r.n. 2. Amlodipine 5 mg p.o. daily. 3. Aspirin 81 mg p.o. daily. 4. Atenolol 25 mg p.o. daily. 5. Cholecalciferol 1000 mg p.o. daily. 6. Cyanocobalamin 1000 mcg p.o. daily. 7. Advair Diskus 500/50 one puff inhalation b.i.d. 8. Meclizine 12.5 mg p.o. t.i.d. 9. Multivitamins 1 tab p.o. daily. 10. Tamsulosin 0.4 mg p.o. daily. 11. Tiotropium 1 cap inhalation daily. 12. Albuterol nebulization inhalation q.4 p.r.n. 13. Nystatin suspension oral 100,000 units p.o. 4 times a day p.r.n. 14. Prednisone slow taper as prescribed. HISTORY OF PRESENT ILLNESS/HOSPITAL COURSE: The patient is an 84-year-old gentleman with history of COPD and hypertension, who presented to the emergency department on 01/18/19 due to shortness of breath that has not improved despite outpatient therapy. He presented to the emergency department at [facility] on 01/12/19 and was prescribed azithromycin for 5 days and prednisone for 10 days. Unfortunately, the patient reported that he has not felt improved since this visit and has needed to start using oxygen all the time starting 2 nights ago. He was also seen at the [facility] recently by his PCP at first week of December and had been prescribed 10 days of Levaquin and stopped taking it after 7 days in addition to steroids. He mentioned that he felt better with this regimen, but felt it almost returned to his baseline and then started having some shortness of breath again. By the time I have seen the patient, the patient had minimal wheezing and had better air entry and had been observed overnight with clear lung breath sounds on auscultation, in good spirits and would like to go home. He did have a mild leukocytosis on admission, which was thought to be due to his acute presentation and likely due to leukemoid reaction and subsequently improved the following day. This has since increased back to around 14,000 on the day of discharge likely due to peripheral demarginalization given steroid therapy. The patient also had a chest x-ray on admission, which was otherwise unremarkable for active cardiopulmonary disease. Hence, given the patient has finished at least 2 courses of antibiotics without any underlying focus of infection, we have discontinued his IV doxycycline that was given to him on admission. He had been advised to follow up and/or call his PCP within 3 days post discharge. He was advised to wear his oxygen anytime he walks and/or exert himself in anyway other than sitting. He was advised that if his symptoms resume or develop new ones or feel unwell for any reason to call his PCP first. If his PCP is unable to entertain him due to scheduling issues alone, he was advised to call [facility] if the issue is nonemergent. He was advised to call my office regarding any questions or concerns or further clarifications regarding his discharge plans and/or prescriptions and to take his medications as prescribed. REVIEW OF SYSTEMS: The patient denied any headaches, dizziness, fevers, chills , nausea, vomiting, chest pain, shortness of breath, increased coughing and/or sputum production, abdominal pain, diarrhea, constipation, pain and/or increased frequency on urination, myalgias, arthralgias, throat pain, or new skin lesions. The rest of the 14-point review of systems is otherwise unremarkable. PHYSICAL EXAMINATION: Shows the most recent vital signs of record with blood pressure of 152/62, 63 beats per minute heart rate, 24 per minute respiratory rate, saturating at 98% at 2 L nasal cannula. General Appearance: The patient is awake, alert, and oriented x3, not in acute distress. HEENT: Normocephalic , atraumatic. PERRLA. Extraocular muscles intact. Negative for icterus. Moist oral mucosa. Negative throat erythema. Neck is soft, supple with no cervical lymphadenopathy. No JVD. Heart: S1, S2 within normal limits. Regular rate and rhythm. No murmurs, rubs, and gallops. Chest: Clear to auscultation bilaterally. Good air entry. No wheezes, rales, or rhonchi. Abdomen is soft, nondistended, nontender. Normoactive bowel sounds x4 quadrants. Extremities: No cyanosis, clubbing, or edema. Psychiatric: No active psychosis, depression, suicidal or homicidal ideations. Skin is warm to touch. TIME SPENT: The total time spent evaluating the patient, reviewing pertinent data, and appropriate documentation is 1 hour and 5 minutes. [id number]/[facility] #: [id number] [facility]
== END 2019-01-20 17:36 | disposition home or self-care (01) | DRG 189 ==
LOC: ED 13:07 → MED 19:12 → OBSVTOIN 01-19 14:00
PROVIDERS: ADMIT Internal Medicine; ATTEND Student in an Organized Health Care Education/Training Program
DX: J96.21 Acute and chronic respiratory failure with hypoxia (principal); J44.1 Chronic obstructive pulmonary disease with (acute) exacerbation; I10 Essential (primary) hypertension; G51.0 Bell's palsy; I49.9 Cardiac arrhythmia, unspecified; N40.0 Benign prostatic hyperplasia without lower urinary tract symptoms; Z85.828 Personal history of other malignant neoplasm of skin; Z91.012 Allergy to eggs; Z82.49 Family history of ischemic heart disease and other diseases of the circulatory system; Z87.891 Personal history of nicotine dependence; Z79.82 Long term (current) use of aspirin; Z99.81 Dependence on supplemental oxygen
CPT/HCPCS: 36415; 36600; 71045; 80048; 80053; 82803; 83605; 83735; 84100; 84443; 84484; 85025; 85379; 87040; 87070; 87077; 87205; 87899; 93005; 94640; 99284; A9270-GY; J1100; J1650; J7512

== ENCOUNTER 2019-02-10 06:17 | Observation (INO) | payer MEDICARE ==
[2019-02-10] MEDS ORDERED: Albuterol/Ipratropium NEB.SOL* Albuterol 2.5 MG/Ipratropium 0.5 MG 3 ML ONE (06:25)
[2019-02-10] MEDS ORDERED: Levofloxacin 750 MG IVPREMIX(* 750 MG/150 ML BAG IVPB ONE (06:27)
[2019-02-10] MEDS ORDERED: NS 0.9% 1000 ML** 1,000 ML IV.FLUID IV ONE (06:27)
[2019-02-10] MEDS ORDERED: cefTRIAXone(*) 1 GM in NS 0.9% 50 ML* 50 ML IVPB ONE (06:27)
[2019-02-10] MEDS ORDERED: Albuterol/Ipratropium NEB.SOL* Albuterol 2.5 MG/Ipratropium 0.5 MG 3 ML INH ONE (06:28)
[2019-02-10] MEDS ORDERED: Dexamethasone IV* 4 MG/ML 1 ML (4 MG) IV SLOW PU ONE (06:29)
[2019-02-10] MEDS ORDERED: Magnesium Sulfate 2 GM IV* 2 GM/50 ML BAG IVPB ONE (06:42)
--- OUTSIDE RECORDS SUMMARY | 2019-02-10 06:44 | XMS REPORT | Continuity of Care Document ---
:1935 External Reference #:[id number] Author Name Gaye Oliver Care Team Providers Name Role Phone Maurice Jason MD Primary Care Physician Unavailable Payers Date Identification Numbers Payment Provider Subscriber Policy Number: [id number] Medicare Mookie Schneider PayID: [id number] [address] [place] [address] Effective: 2016 Policy Number: [facility] Mookie Schneider [id number] PayID: [id number] [address] [place] [address] Advance Directives Description No Information Available Problems Active Problems Provider Date Cough Clemente Raman MD Onset: 01/27/2019 Benign prostatic hyperplasia with lower urinary tract Clemente Raman MD Onset: symptoms Chronic obstructive pulmonary disease with (acute) Clemente Raman MD Onset: 01/27 exacerbation Essential hypertension Clemente Raman MD Onset: 01/27/2019 Family History Description No Information Available Social History Type Date Description Comments Sex Unknown Tobacco Use Start: Unknown End: Unknown Patient is a former smoker Smoking Status Reviewed: 01/27/19 Patient is a former smoker Allergies, Adverse Reactions, Alerts Description No Known Drug Allergies Medications Active Medications SIG Qnty Indications Ordering Date Provider Cyanocobalamin 1 sublingual 90units Clemente Raman MD 01/27/2019 Crystals every day Meclizine HCL 1 pill twice a 30tabs Clemente Raman MD 01/27/2019 12.5mg day if too Tablets sedating reduce to one pill at bedtime Protonix take 1 pill 30tabs R05 Clemente Raman MD 01/27/[address] daily. If does not help the cough after 1 week then stop Albuterol Sulfate HFA 2 puffs every 4 Unknown hours 108(90Base) mcg/Act Aerosol Amlodipine Besylate 1 by mouth every Unknown 5mg day Tablets Aspirin 81 Low Dose 1 by mouth every Unknown 81mg day Chewtabs Atenolol 1 by mouth every Unknown 25mg Tablets day Cholecalciferol 1000 unit 1tablet Unknown Powder by mouth every day- Advair Diskus 1 puff twice a Unknown day 500-50mcg/Dose Aerosol Multi Complete daily Unknown Capsules Tamsulosin HCL 1 by mouth every Unknown 0.4mg day Capsules Albuterol Sulfate inhale 1 vial via Unknown nebulizer three 1.25mg/3ML Nebulizer times a day Nystatin 2ml in each side Unknown [id number]/ML of mouth, swish, Suspension wipe tongue with wash cloth then swallow, four times a day for 10 days Prednisone taper Unknown 50mg Tablets Tiotropium 1 cap inhalation Unknown daily Immunizations Description No Information Available Vital Signs Date Vital Result Comment 01/27/2019 10:29am Weight 136.00 lb Heart Rate 64 /min BP Systolic 156 mmHg Respiratory Rate 18 /min Body Temperature 97.3 F O2 % BldC Oximetry 94 % Results Description No Information Available Procedures Description No Information Available Encounters Type Date Location Provider Dx Diagnosis Office Visit 01/20/2019 [facility] Thomas Garcia44.1 Chronic obstructive 9:26a amina Vanegas MD pulmonary disease w Hospitalists (acute) exacerbation I10 Essential (primary) hypertension N40.1 Benign prostatic hyperplasia with lower urinary tract symp Office Visit 01/19/2019 [facility] Thomas Knox J44.1 Chronic 9:25a amina Vanegas MD obstructive Hospitalists pulmonary disease w (acute) exacerbation I10 Essential (primary) hypertension N40.1 Benign prostatic hyperplasia with lower urinary tract symp Office Visit 01/18/2019 [facility] Gina J96.01 Acute respiratory 9:25a amina Vanegas PA-C failure with Hospitalists hypoxia J18.1 Lobar pneumonia, unspecified organism I10 Essential (primary) hypertension I49.9 Cardiac arrhythmia, unspecified Office Visit 08/04/2017 1:00p [facility] Clemente Raman, J44.1 Chronic Assoc,amina MARQUEZ obstructive Hospitalists pulmonary disease w (acute) exacerbation J18.1 Lobar pneumonia, unspecified organism I10 Essential (primary) hypertension J96.01 Acute respiratory failure with hypoxia Office Visit 08/03/2017 1:00p [facility] Clemente Raman J44.1 Chronic Assoc,amina MARQUEZ obstructive Hospitalists pulmonary disease w (acute) exacerbation J18.1 Lobar pneumonia, unspecified organism J96.01 Acute respiratory failure with hypoxia I10 Essential (primary) hypertension Office Visit 08/02/2017 12:59p [facility] Clemente Raman J44.1 Chronic Assoc,amina MARQUEZ obstructive Hospitalists pulmonary disease w (acute) exacerbation J18.1 Lobar pneumonia, unspecified organism J96.01 Acute respiratory failure with hypoxia I10 Essential (primary) hypertension Office Visit 08/01/2017 [facility] Yumiko Page J18.1 Lobar pneumonia, 12:58p Assoc,amina Bhagat, CADMIUM BURNER unspecified Hospitalists organism J44.1 Chronic obstructive pulmonary disease w (acute) exacerbation I10 Essential (primary) hypertension R09.02 Hypoxemia Office Visit 07/31/2017 [facility] Yumiko Page J18.1 Lobar pneumonia, 12:57p Assocamina, [employer]MIUM BURNER unspecified Hospitalists organism J44.1 Chronic obstructive pulmonary disease w (acute) exacerbation I10 Essential (primary) hypertension R09.02 Hypoxemia Office Visit 02/08/2017 [facility] J44.1 Chronic 10:50a Assoc,pc Christen, [employer]MIUM BURNER obstructive Hospitalists pulmonary disease w (acute) exacerbation J18.1 Lobar pneumonia, unspecified organism I10 Essential (primary) hypertension Office Visit 02/07/2017 [facility] J44.1 Chronic 10:50a Assoc,pc Christen, [employer]MI[employer] BURNER obstructive Hospitalists pulmonary disease w (acute) exacerbation J18.1 Lobar pneumonia, unspecified organism I10 Essential (primary) hypertension Office Visit 02/06/2017 [facility] J44.1 Chronic 10:49a Assoc,pc Christen, [employer]MIUM BURNER obstructive Hospitalists pulmonary disease w (acute) exacerbation J18.1 Lobar pneumonia, unspecified organism I10 Essential (primary) hypertension Office Visit 02/05/2017 [facility] Damien J44.1 Chronic 10:48a Assoc,pc Maykel N.P. obstructive Hospitalists pulmonary disease w (acute) exacerbation J18.1 Lobar pneumonia, unspecified organism I10 Essential (primary) hypertension Plan of Treatment 01/27/2019 - Clemente Raman MDJ44.1 Chronic obstructive pulmonary disease with ( acute) exacerbatNew Orders:PFTW/Spirometry Vol Pre/Post Bronchdilat Dlco Complete, Scheduled: 01/27/19Comments:We are referring you to the local [employer] for repeat pulmonary function tests.Referral:Astrid Rod MD , Pulmonary DiseasesFollow up:Please follow-up with Dr. Jason at your already scheduled appointment. Please call us with any concerns or if you can't see him as quickly as you feel you need to be seen if your symptoms worsen.I10 Essential (primary) [id number] Benign prostatic hyperplasia with lower urinary tract [id number] CoughNew Medication:Protonix 20 mg - take 1 pill daily. If does not help the cough after 1 week then stopComments:This is likely a viral bronchitis which can take up to 8 weeks for the cough to resolve. We will trial an acid gwen(protonix) but please stop taking it after 1-2 weeks if your cough persists and youfeel no better.
[2019-02-10 07:02] LABS: ABS Basophils 0.1 10^3/ul (0-0.2); ABS Lymphocytes 0.4 10^3/ul (1.0-4.8); ABS Monocytes 0.6 10^3/ul (0-0.8); Eosinophil % 0.1 %; Hematocrit 46 % (42-52); Hemoglobin 15.5 g/dL (14.0-18.0); Lymphocyte % 1.9 %; Mean Corpuscular HGB Conc 33 g/dL (31-36); Mean Corpuscular Hemoglobin 29 pg (27-31); Mean Corpuscular Volume 85 fL (80-94); Mean Platelet Volume 8.6 fL (7.4-10.4); Nucleated Red Blood Cells % 0.1; Platelet Count 135 10^3/uL (150-450); Red Blood Count 5.43 10^6 /uL (4.18-5.48); Red Cell Distribution Width 16 % (10.5-15); White Blood Count 19.1 10^3/uL (3.5-10.8)
[2019-02-10 07:15] LABS: INR 1.1 (0.82-1.09)
[2019-02-10 07:23] LABS: Albumin/Globulin Ratio 1.5 (1-3); BUN/Creatinine Ratio 15.4 (8-20); C Reactive Protein 34.8 mg/L (<8.01); Calcium 8.9 mg/dL (8.6-10.3); EGFR African American 114.5 (>60); EGFR Non-African American 94.6 (>60); Globulin 2.6 g/dL (2-4); Potassium 3.4 mmol/L (3.5-5.0); Total Bilirubin 1.2 mg/dL (0.2-1.0); Total Protein 6.6 g/dL (6.4-8.9); Troponin I 0.01 ng/mL (<0.04)
--- NOTE | 2019-02-10 08:40 | ED ---
Shortness of Breath - HPI Summary HPI Summary: Patient is an 84-year-old male with a history of COPD and hypertension presenting to the ED with acute onset SOB which began last evening, worsened throughout the evening and he called the ambulance this morning as he felt despite his 2 L O2 at home, he had increased work of breathing and increased heart rate. He was seen at the [facility] yesterday with a "clean bill of health." He states he has been seen several times in the ED and through his PCP for recurrent bronchitis and has been on multiple outpatient antibiotic regimens. Last regimen was 3 weeks ago. He is currently not on steroids, although he had steroids during his bronchitis treatment. He wears 2 L O2 at home during the daytime only, but denies this at night. Denies any sputum production. He endorses a cough last night, but denies this currently. He denies any worsening symptoms with lying flat. Denies any fevers, sweats, chills, chest pain, abdominal pain, nausea, vomiting diarrhea, urinary symptoms or back pain. He denies any increase in swelling to his lower extremities. He states he typically has a very low heart rate. He arrives by EMS with a heart rate of 141 and a temp of 100.8. He arrives by way of EMS on a NRB with 5L sat at 96%. - History of Current Complaint Chief Complaint: EDShortnessOfBreath Time Seen by Provider: 02/10/19 06:25 Hx Obtained From: Patient, EMS Onset/Duration: Sudden Onset Timing: Constant Current Severity: Moderate Dyspnea At: Rest Aggrevating Factors: Deep Breaths Alleviating Factors: Bronchodilators, EMS Tx, Oxygen Associated Signs & Symptoms: Cough (Nonproductive) - Risk Factors Pseudomonas: Chronic Lung Disease - Allergy/Home Medications Allergies/Adverse Reactions: Allergies Allergy/AdvReac Type Severity Reaction Status Date / Time Egg Derived Allergy Unknown Verified 01/18/19 13:08 Reaction Details PMH/Surg Hx/FS Hx/Imm Hx Previously Healthy: Yes Cardiovascular History: Reports: Hx Hypertension Respiratory History: Reports: Hx Chronic Obstructive Pulmonary Disease (COPD), Hx Pneumonia Sensory History: Reports: Hx Contacts or Glasses Denies: Hx Hearing Aid Opthamlomology History: Reports: Hx Contacts or Glasses Infectious Disease History: No Infectious Disease History: Denies: Traveled Outside the [place] in Last 30 Days - Family History Known Family History: Positive: Hypertension Negative: Diabetes - Social History Occupation: Unemployed Lives: With Family Alcohol Use: None Hx Substance Use: No Substance Use Type: Reports: None Hx Tobacco Use: Yes Smoking Status (MU): Former Smoker Review of Systems Negative: Fever, Chills, Fatigue, Skin Diaphoresis Negative: Nasal Discharge Negative: Palpitations, Chest Pain Positive: Shortness Of Breath, Cough Negative: Abdominal Pain, Vomiting, Diarrhea, Nausea Negative: Arthralgia, Myalgia Skin: Negative Neurological: Negative All Other Systems Reviewed And Are Negative: Yes Physical Exam Triage Information Reviewed: Yes Vital Signs On Initial Exam: Initial Vitals Temp Pulse Resp BP Pulse Ox 100.8 F 141 22 144/109 94 02/10/19 06:20 02/10/19 06:20 02/10/19 06:20 02/10/19 06:20 02/10/19 06:20 Vital Signs Reviewed: Yes Appearance: Positive: Ill-Appearing - increased WOB and SOB on arrival Skin: Positive: Warm, Skin Color Reflects Adequate Perfusion Neck: Positive: Supple, No Lymphadenopathy Respiratory/Lung Sounds: Positive: Decreased Breath Sounds Cardiovascular: Positive: Tachycardia. Negative: Leg Edema Left, Leg Edema Right Musculoskeletal: Positive: Normal, Strength/ROM Intact Neurological: Positive: Sensory/Motor Intact, Alert, Oriented to Person Place, Time, Speech Normal Psychiatric: Positive: Affect/Mood Appropriate AVPU Assessment: Alert Diagnostics - Vital Signs Vital Signs Temp Pulse Resp BP Pulse Ox 02/10/19 08:24 103 25 111/87 95 02/10/19 08:00 106 24 96 02/10/19 07:54 106 25 140/68 95 02/10/19 07:24 110 22 124/65 94 02/10/19 07:00 111 22 95 02/10/19 06:54 115 29 151/65 95 02/10/19 06:28 116 20 122/75 96 02/10/19 06:27 115 18 96 02/10/19 06:24 100 31 144/109 93 02/10/19 06:20 100.8 F 141 22 144/109 94 - Laboratory Lab Results: Lab Results 02/10/19 02/10/19 02/10/19 Range/Units 06:47 06:47 06:47 WBC 19.1 H (3.5-10.8) 10^3/uL RBC 5.43 (4.18-5.48) 10^6 /uL Hgb 15.5 (14.0-18.0) g/dL Hct 46 (42-52) % MCV 85 (80-94) fL MCH 29 (27-31) pg MCHC 33 (31-36) g/dL RDW 16 H (10.5-15) % Plt Count 135 L (150-450) 10^3/uL MPV 8.6 (7.4-10.4) fL Neut % (Auto) 94.5 % Lymph % (Auto) 1.9 % Upson % (Auto) 3.2 % Eos % (Auto) 0.1 % Baso % (Auto) 0.3 % Absolute Neuts (auto) 18.0 H (1.5-7.7) 10^3/ul Absolute Lymphs (auto) 0.4 L (1.0-4.8) 10^3/ul Absolute Monos (auto) 0.6 (0-0.8) 10^3/ul Absolute Eos (auto) 0.0 (0-0.6) 10^3/ul Absolute Basos (auto) 0.1 (0-0.2) 10^3/ul Absolute Nucleated RBC 0.0 10^3/ul Nucleated RBC % 0.1 INR (Anticoag Therapy) (0.82-1.09) APTT (26.0-36.3) seconds Patient Temperature ABG pH (7.35-7.45) ABG pH (Temp Correct) ABG pCO2 (35-45) mmHg ABG pCO2 (Temp Corrct ABG pO2 (80-100) mmHg ABG pO2 (Temp Correct ABG HCO3 (19-31) mmol/L ABG O2 Saturation (94.0-98.0) % ABG Base Excess (-2.0-2.0) mmol/L Respiration Rate O2 Delivery Device Ventilator Type Vent Mode FiO2 Inspiratory Time PEEP Pressure Support Pressure Control EPAP IPAP BiPAP Sodium 138 (135-145) mmol/L Potassium 3.4 L (3.5-5.0) mmol/L Chloride 104 (101-111) mmol/L Carbon Dioxide 25 (22-32) mmol/L Anion Gap 9 (2-11) mmol/L BUN 12 (6-24) mg/dL Creatinine 0.78 (0.67-1.17) mg/dL Est GFR ( Amer) 114.5 (>60) Est GFR (Non-Af Amer) 94.6 (>60) BUN/Creatinine Ratio 15.4 (8-20) Glucose 160 H (70-100) mg/dL Lactic Acid 1.4 (0.5-2.0) mmol/L Calcium 8.9 (8.6-10.3) mg/dL Total Bilirubin 1.20 H (0.2-1.0) mg/dL AST 14 (13-39) U/L ALT 13 (7-52) U/L Alkaline Phosphatase 82 (34-104) U/L Troponin I 0.01 (<0.04) ng/mL C-Reactive Protein 34.80 H (<8.01) mg/L B-Natriuretic Peptide (<=100) pg/mL Total Protein 6.6 (6.4-8.9) g/dL Albumin 4.0 (3.2-5.2) g/dL Globulin 2.6 (2-4) g/dL Albumin/Globulin Ratio 1.5 (1-3) 02/10/19 02/10/19 02/10/19 Range/Units 06:47 06:47 07:10 WBC (3.5-10.8) 10^3/uL RBC (4.18-5.48) 10^6 /uL Hgb (14.0-18.0) g/dL Hct (42-52) % MCV (80-94) fL MCH (27-31) pg MCHC (31-36) g/dL RDW (10.5-15) % Plt Count (150-450) 10^3/uL MPV (7.4-10.4) fL Neut % (Auto) % Lymph % (Auto) % Upson % (Auto) % Eos % (Auto) % Baso % (Auto) % Absolute Neuts (auto) (1.5-7.7) 10^3/ul Absolute Lymphs (auto) (1.0-4.8) 10^3/ul Absolute Monos (auto) (0-0.8) 10^3/ul Absolute Eos (auto) (0-0.6) 10^3/ul Absolute Basos (auto) (0-0.2) 10^3/ul Absolute Nucleated RBC 10^3/ul Nucleated RBC % INR (Anticoag Therapy) 1.10 H (0.82-1.09) APTT 34.0 (26.0-36.3) seconds Patient Temperature Not Reportable ABG pH 7.48 H (7.35-7.45) ABG pH (Temp Correct) Not Reportable ABG pCO2 35 (35-45) mmHg ABG pCO2 (Temp Corrct Not Reportable ABG pO2 76 L (80-100) mmHg ABG pO2 (Temp Correct Not Reportable ABG HCO3 27.0 (19-31) mmol/L ABG O2 Saturation 96.4 (94.0-98.0) % ABG Base Excess 2.8 H (-2.0-2.0) mmol/L Respiration Rate Not Reportable O2 Delivery Device Nasal cannula 3lpm Ventilator Type Not Reportable Vent Mode Not Reportable FiO2 Not Reportable Inspiratory Time Not Reportable PEEP Not Reportable Pressure Support Not Reportable Pressure Control Not Reportable EPAP Not Reportable IPAP Not Reportable BiPAP Not Reportable Sodium (135-145) mmol/L Potassium (3.5-5.0) mmol/L Chloride (101-111) mmol/L Carbon Dioxide (22-32) mmol/L Anion Gap (2-11) mmol/L BUN (6-24) mg/dL Creatinine (0.67-1.17) mg/dL Est GFR ( Amer) (>60) Est GFR (Non-Af Amer) (>60) BUN/Creatinine Ratio (8-20) Glucose (70-100) mg/dL Lactic Acid (0.5-2.0) mmol/L Calcium (8.6-10.3) mg/dL Total Bilirubin (0.2-1.0) mg/dL AST (13-39) U/L ALT (7-52) U/L Alkaline Phosphatase (34-104) U/L Troponin I (<0.04) ng/mL C-Reactive Protein (<8.01) mg/L B-Natriuretic Peptide 88 (<=100) pg/mL Total Protein (6.4-8.9) g/dL Albumin (3.2-5.2) g/dL Globulin (2-4) g/dL Albumin/Globulin Ratio (1-3) Result Diagrams: 02/10/19 06:47 02/10/19 06:47 Lab Statement: Any lab studies that have been ordered have been reviewed, and results considered in the medical decision making process. Re-Evaluation - Re-Evaluation First Eval Change: Improved - improved following duo-neb and meds Course/Dx - Course Course Of Treatment: During his course of treatment, the patient's evaluated for increased WOB N SOB which began last evening. History of pneumonia, bronchitis, COPD. Smoking history, quit 50 years ago. He arrives on a nonrebreather mask and currently sat at 96%. He is changed to nasal cannula only and continues to sat between 90-94% on 4 L. He typically wears 2 L at home. He arrives with a temp of 100.8, tachycardia at 141, respirations 22, 144 /109. He states he typically has a low resting heart rate as well as normal BP. Symptoms are not aggravated with lying flat or better with sitting upright. He states he has been on multiple regimens of antibiotics and steroids , most recently 3 weeks ago. Currently not on either at this time. He meets septic workup/protocol. On arrival, he is given 1800 mL of normal saline, Levaquin, ceftriaxone, magnesium, dexamethasone 8 mg, 1 DuoNeb and admitted to hospitalist service for sepsis workup and COPD exacerbation. On reexamination, heart rate is 110, respirations continue to be at 22, 94% on 3 L and 124/65. Patient is feeling much improved and states he no longer has shortness of breath. Discussed case with Dr. Martinez, admitting hospitalist, who agrees to admit patient for further evaluation. Chest x-ray shows no acute cardiopulmonary findings, however interstitial markings. Influenza, Legionella and strep urine antigens ordered and pending. Blood cultures pending. - Diagnoses Differential Diagnosis/HQI/PQRI: Positive: Bronchitis, CHF, COPD Exacerbation, Pneumonia Provider Diagnoses: COPD exacerbation - Physician Notifications Discussed Care of Patient With: Aleksandra Martinez Instructed by Provider To: Admit As Inpatient - Critical Care Time Critical Care Time: 30-74 min Discharge - Sign-Out/Discharge Documenting (check all that apply): Patient Departure Patient Received Moderate/Deep Sedation with Procedure: No - Discharge Plan Condition: Fair Disposition: ADMITTED TO [facility] Referrals: Maurice Jason MD [Primary Care Provider] - - Billing Disposition and Condition Condition: FAIR Disposition: Admitted to [facility]
[2019-02-10] MEDS ORDERED: Albuterol HFA INHALER* 8 gm MDI INH PRN (09:05)
[2019-02-10] MEDS ORDERED: Meclizine TAB* 12.5 MG PO PRN (09:05)
[2019-02-10] MEDS ORDERED: Spiriva Inhaler DEVICE* 1 EACH DEVICE INH ONE (10:00)
[2019-02-10 10:24] LABS: Influenza A Molecular NEGATIVE (Negative); Influenza B Molecular NEGATIVE (Negative)
[2019-02-10] MEDS: Albuterol 2.5 MG/3 ML NEB.SOL* (0.083%) INH PRN ×2 (11:40→11:46)
[2019-02-10] MEDS: Mometasone/Formoter 200/5 MDI INH SCH ×3 (11:41→19:14)
[2019-02-10] MEDS: Tiotropium CAP.INH* CAP.INH/18 MCG (USE ORDER SET !) INH SCH ×2 (11:41→11:47)
[2019-02-10] MEDS: Cholecalciferol TAB* 1000 UNITS PO SCH (12:09)
[2019-02-10] MEDS: amLODIPine TAB* 5 MG PO SCH (12:09)
[2019-02-10] MEDS: Cyanocobalamin TAB* 500 MCG PO SCH (12:09)
[2019-02-10] MEDS: Aspirin EC TAB* 81 MG TAB.EC PO SCH (12:09)
[2019-02-10] MEDS: Atenolol TAB* 25 MG PO SCH (12:10)
[2019-02-10] MEDS: Pantoprazole IV* 40 MG IV SCH (12:10)
[2019-02-10] MEDS: Multivitamins/Minerals TAB PO SCH (12:10)
[2019-02-10] MEDS: Tamsulosin CAP* 0.4 MG PO SCH (12:10)
[2019-02-10] MEDS: Heparin VIAL(*) 5000 UNITS/ML VIAL (FIVE THOUSAND) SUBCUT SCH ×2 (13:45→22:44)
[2019-02-10] MEDS ORDERED: Albuterol 2.5 MG/3 ML NEB.SOL* (0.083%) INH PRN (15:12)
[2019-02-10] MEDS: methylPREDNISolone SOD 40 MG* 1 ML VIAL IV SCH (17:14)
--- NOTE | 2019-02-10 17:28 | HP ---
CC: Dr. Maurice Jason at [facility] * HISTORY AND PHYSICAL: DATE OF ADMISSION: 02/10/19 TIME OF EVALUATION: 8:45 a.m. PRIMARY CARE PROVIDER: Dr. Maurice Jason at the [facility]. CHIEF COMPLAINT: Shortness of breath. HISTORY OF PRESENT ILLNESS: Mr. Schneider is an 84-year-old male with a past medical history of COPD, hypertension, Lazcano's palsy, skin cancer, BPH, who presented to the emergency room with complaints of shortness of breath. The patient [place] [facility] [place] 01[place]20[place] with diagnosis of COPD exacerbation. At that time, the patient was discharged home with 2 L of oxygen that he states he has been using just when he is moving around. He actually was doing better and had a followup with his primary care provider yesterday and was told that his lungs were clear. He went to bed feeling well and woke up earlier this morning with severe shortness of breath and wheezing. He tried to use the oxygen, but had no improvement. He states that EMS was called, and when they applied the oxygen with mask, he did not have much improvement, but when they switched to a mask with pressure (which I assume is CPAP), he had significant improvement. In the ED, he received a nebulizer treatment, and when I went to interview him, he states that he was feeling much better and close to his baseline. He denies chest pain, fever, palpitations, nausea, vomiting, diarrhea, or urinary complaints. He states that he has had a dry cough since his prior admission and this has persisted throughout this whole time with no significant improvement. He is actually scheduled for pulmonology evaluation at the [facility] on 03/10/19. PAST MEDICAL HISTORY: 1. COPD, on 2 L of oxygen at home with exertion. 2. Hypertension. 3. Lazcano's palsy. 4. Skin cancer, status post resection. 5. BPH. MEDICATIONS: 1. Albuterol 2.5 nebulized q.4 hours p.r.n. shortness of breath and wheezing. 2. Albuterol HFA 2 puffs inhaled 4 times a day, p.r.n. shortness of breath and wheezing. 3. Amlodipine 5 mg p.o. daily. 4. Aspirin 81 mg p.o. daily. 5. Atenolol 12.5 mg p.o. daily. 6. Cholecalciferol 2000 units p.o. daily. 7. Clotrimazole Thrush 10 mg p.o. b.i.d. if the patient develops a thrush. 8. Cyanocobalamin 1000 mcg p.o. daily. 9. Advair Diskus 500/50 1 puff inhaled b.i.d. 10. Meclizine 12.5 mg p.o. t.i.d. as needed for dizziness. 11. Multivitamin 1 tablet p.o. daily. 12. Tamsulosin 0.4 mg p.o. daily. 13. Tiotropium 1 capsule inhaled daily ALLERGIES: Eggs. FAMILY HISTORY: Reviewed, noncontributory. SOCIAL HISTORY: The patient is a former smoker who smoked 1 pack a day for 10 years and quit smoking more than 50 years ago. No history of alcohol or drug use. 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 Surrogate decision-maker is his daughter, Tasha Schneider, phone number is [phone]. REVIEW OF SYSTEMS: A 14-point review of systems was performed and all the pertinent negative and positive findings are on the HPI. PHYSICAL EXAMINATION GENERAL: The patient is a pleasant, elderly gentleman sitting up in the ED stretcher, in no acute distress. VITAL SIGNS: Temperature was 100.8, heart rate 106, respiratory rate is 24, oxygen saturation is 96% on 2 L nasal cannula, blood pressure is 140/68. CHEST: Breath sounds bilaterally diminished with no added sounds. ABDOMEN: Soft, bowel sounds present. EXTREMITIES: No edema. NEUROLOGIC: He is alert and oriented x3, hard of hearing, able to move all 4 extremities. LABORATORY AND IMAGING DATA: CBC showed a WBC of 19.1, with hemoglobin of 15.5 , hematocrit 46, with 135 platelets, 94% neutrophils. INR is 1.1. ABG showed a pH of 7.48, pCO2 of 35, pAO2 of 76, bicarb of 27 with oxygen saturation 96%. Chemistry showed a sodium of 138, potassium 3.4, chloride 104, bicarb 25, BUN of 12, creatinine of 0.7, glucose of 160, lactic acid 1.4, calcium 8.9. Total bilirubin was 1.2, AST 14, ALT 13, CRP is 34.8. Rapid influenza was negative. Chest x-ray was reviewed and the reading is of emphysema with stable fibrotic changes. EKG done at 6:26 a.m. on 02/10/19 showed sinus tachycardia with no acute ischemic changes. No significant change when compared to his prior EKG from December 2018, just the rhythm is faster at this time. ASSESSMENT AND PLAN: Mr. Schneider is an 84-year-old male with a past medical history of chronic obstructive pulmonary disease, hypertension, recent admission for chronic obstructive pulmonary disease exacerbation, who presented to the emergency room with complaints of shortness of breath and cough, found to have another episode of chronic obstructive pulmonary disease exacerbation. 1. Acute chronic obstructive pulmonary disease exacerbation. The patient was recently [place] [facility] [place] with complaints of shortness of breath and cough and at that time he was discharged with prednisone taper. He had had multiple antibiotic courses as outpatient and it was felt that it was not a bacterial infection. This episode to me suggests gastroesophageal reflux disease as the source of his chronic cough and chronic obstructive pulmonary disease exacerbation. When I brought this up, the patient states that this is not the first time he heard of it, and he was on a PPI in the past, but since he do not think he had improvement, he stopped it after a week. He will be admitted as observation to the medical floor. He will receive bronchodilators, inhaled steroids, systemic steroids and he got a dose of levofloxacin in the emergency room, but it is unclear to me if this represents an infection or not. I suspect he may have had an episode of reflux overnight causing bronchospasm and the symptoms that brought him into the emergency room. I am going to start him on Protonix. He was encouraged to keep up his appointment with Pulmonology on 03/10/19, but depending on his hospital course, if he has further decline of his condition, we may consider consulting Pulmonology while in the hospital. 2. Hypertension, is controlled. We will continue amlodipine. 3. Benign prostatic hyperplasia. We will continue tamsulosin. 4. DVT prophylaxis. The patient has a score of 3 on DVT prophylaxis assessment guide and will be started on subcutaneous heparin. 5. Code status was discussed with the patient. He wishes to be a full code. TIME SPENT: Approximately 60 minutes was spent with patient, his daughter, interview, medical records review, physical examination to complete this admission; more than half of this time was spent [id number] with the patient in coordination of care. [id number]/[facility] #: [id number] [place]
[2019-02-10] MEDS: Azithromycin IV(*) 500 MG in NS 0.9% 250 ML* 250 ML IVPB SCH (18:20)
[2019-02-11] MEDS: methylPREDNISolone SOD 40 MG* 1 ML VIAL IV SCH ×2 (04:13→17:06)
[2019-02-11] MEDS: Heparin VIAL(*) 5000 UNITS/ML VIAL (FIVE THOUSAND) SUBCUT SCH ×2 (05:43→14:31)
[2019-02-11] MEDS: Tiotropium CAP.INH* CAP.INH/18 MCG (USE ORDER SET !) INH SCH (08:14)
[2019-02-11] MEDS: Mometasone/Formoter 200/5 MDI INH SCH (08:14)
[2019-02-11] MEDS: Pantoprazole IV* 40 MG IV SCH (10:08)
[2019-02-11] MEDS: Atenolol TAB* 25 MG PO SCH (10:08)
[2019-02-11] MEDS: Aspirin EC TAB* 81 MG TAB.EC PO SCH (10:09)
[2019-02-11] MEDS: Tamsulosin CAP* 0.4 MG PO SCH (10:09)
[2019-02-11] MEDS: Cholecalciferol TAB* 1000 UNITS PO SCH (10:09)
[2019-02-11] MEDS: Cyanocobalamin TAB* 500 MCG PO SCH (10:09)
[2019-02-11] MEDS: Multivitamins/Minerals TAB PO SCH (10:09)
[2019-02-11] MEDS: amLODIPine TAB* 5 MG PO SCH (10:10)
[2019-02-11 15:40] VITALS: BP 142/60
--- NOTE | 2019-02-11 16:16 | CONS ---
PULMONARY CONSULTATION REPORT: DATE OF CONSULT: 02/11/19 CONSULTATION REQUESTED BY: Dr. Perry. REASON FOR CONSULT: Evaluation of shortness of breath. HISTORY OF PRESENT ILLNESS: The patient is an 84-year-old pleasant male with history of COPD, hypertension, skin cancer, BPH, with prior exposure to asbestos and other chemicals. The patient presents for evaluation of shortness of breath. He was having complicated course in the past 2 to 3 months with recurrent ED visits and hospitalization from 01/18/19 to 01/20/19. The patient reports that he feels better with nebulizers and prednisone and his shortness of breath symptoms happened again. He was seen by primary care physician a day prior to this current presentation when he was found to be doing well without any wheezing or abnormal breath sounds. The next morning, he started feeling worse with severe shortness of breath, significant wheezing, and decided to come into the emergency room. The patient responded well to the nebulizer treatment. The patient was seen and examined at bedside. The patient reports feeling better. The patient does not appear to be in any distress. He has a dry cough without much productive phlegm. The patient reports significant occupational exposures to asbestos and other chemicals in the past. The patient denies recurrent bronchitis. He started having issues with his breathing very recently. He has history of COPD and he has been on 2 L oxygen for a year and a half. He is also on nebulizers at home with which he reports benefit. He also uses Advair and Spiriva. The patient denies chest pain, fevers, palpitations, nausea, vomiting, diarrhea , urinary complaints. The patient denies any sick contacts or recent travel. The patient denies any skin rash, headaches. PAST MEDICAL HISTORY: 1. COPD, on 2 L O2 at home. 2. Hypertension. 3. Lazcano's palsy. 4. Skin cancer, status post resection. 5. BPH. MEDICATIONS: 1. Albuterol nebulizer. 2. Amlodipine. 3. Aspirin. 4. Atenolol. 5. Cholecalciferol. 6. Clotrimazole. 7. Cyanocobalamin. 8. Advair. 9. Spiriva. 10. Meclizine. 11. Multivitamin. 12. Flomax. ALLERGIES: EGGS. FAMILY HISTORY: Reviewed and noncontributory. SOCIAL HISTORY: Former smoker, smoked 1 pack for 10 years, quit smoking more than 50 years ago. No alcohol or drug abuse. 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 REVIEW OF SYSTEMS: All 14 systems reviewed and as per HPI. PHYSICAL EXAM: The patient is in bed, in no apparent distress. Vital Signs: Temperature 97.6, pulse 87 beats per minute, respiratory rate 22 per minute, O2 sat 95% on 2 L, blood pressure 121/51. HEENT: Pupils equal, reactive to light. Mucous membranes moist. Lungs: Diminished air entry bilaterally. No wheeze on auscultation. Abdomen: Soft, nontender, nondistended. Bowel sounds present. CVS: S1, S2 present, regular. Neurologic: Alert, awake, oriented x3. No focal deficits. Skin: No rash or bruise. DIAGNOSTIC STUDIES/LAB DATA: WBC count 19.1, hemoglobin 15.5, hematocrit 46, platelet count 135. Blood gas analysis shows pH of 7.48, pCO2 of 35, pO2 of 76 , bicarb of 27. Sodium 138, potassium 3.4, chloride 104, bicarb 25, BUN 12, creatinine 0.78. BNP 88. Lactic acid 1.4. Influenza A and B negative. Chest x-ray performed on admission was personally reviewed by me - emphysematous changes and basal fibrosis changes. CT scan of the chest performed during prior hospitalization from 2017 also revealed the presence of significant emphysematous changes. The patient also with multiple pulmonary nodules on the right lung, the largest measuring up to 0.8 cm. The patient reports that he had followup CT scan through his primary care physician, which showed stable or resolved nodules. The patient also on that scan noted to have mild fibrotic changes, subpleural location, mostly in the upper lung and a little bit in the bases. IMPRESSION AND RECOMMENDATIONS: 84-year-old male, former smoker, with significant occupational exposure including exposure to asbestos, admitted with shortness of breath, wheezing. The patient's symptoms suggestive of possible reactive airways disease secondary to laryngeal reflux. His symptoms resolved quickly with bronchodilators. I would recommend continuing with gastroesophageal reflux disease therapy which he discontinued as recommended in about a week with possible return of symptoms. Agree with current management with long-acting bronchodilators. Would start tapering prednisone and would taper it over 10 days. Continue with PPI. Chest x-ray shows fibrotic changes, which were also seen on prior CT consistent with his prior occupational exposures and asbestos exposure. I do not see any concerning evidence at this time. He would need followup CT as an outpatient if it is not done already for followup of previously noted pulmonary nodules. I gave the patient option of following up with me and I also provided him with a card and my contact information so he could see me if he has any symptoms that recur. Thank you for allowing me to participate in the care of your patient. Will follow up with you. [id number]/[facility] #: [id number] [place]
[2019-02-11] MEDS: Azithromycin IV(*) 500 MG in NS 0.9% 250 ML* 250 ML IVPB SCH (17:06)
--- NOTE | 2019-02-11 22:39 | DS ---
CC: Dr. Maurice Jason; Dr. Rod * DISCHARGE SUMMARY: DATE OF ADMISSION: 02/10/19 DATE OF DISCHARGE: 02/11/19 PRIMARY CARE PROVIDER: Maurice Jason MD. CONSULTING WAX BALL MOLDER: Dr. Rod. DISCHARGE DIAGNOSIS: Chronic obstructive pulmonary disease exacerbation, likely secondary to GERD. SECONDARY DIAGNOSES: 1. Chronic obstructive pulmonary disease, on home O2. 2. Hypertension. 3. Lazcano's palsy. 4. Skin cancer, status post resection. 5. Benign prostatic hypertrophy. MEDICATION LIST: 1. Spiriva 1 capsule inhaled daily. 2. Tamsulosin 0.4 mg p.o. daily. 3. Multivitamin 1 tablet p.o. daily. 4. Meclizine 12.5 mg p.o. t.i.d. as needed for dizziness. 5. Cyanocobalamin 1000 mcg p.o. daily. 6. Advair 500/50 one puff inhaled b.i.d. 7. Cholecalciferol 2000 units p.o. daily. 8. Aspirin 81 mg p.o. daily. 9. Amlodipine 5 mg p.o. daily. 10. Atenolol 12.5 mg p.o. daily. 11. Albuterol HFA 2 puffs inhaled 4 times a day p.r.n. shortness of breath and wheezing. 12. Albuterol nebulized 2.5 mg q.4 hours p.r.n. shortness of breath and wheezing. New medications: 1. Prednisone taper as follows, 40 mg for 3 days, 30 mg for 3 days, 20 mg for 3 days, 10 mg for 3 days, 5 mg for 3 days and stop. 2. Omeprazole 20 mg p.o. daily at 6 a.m. HOSPITAL COURSE: Mr. Schneider is an 84-year-old male with a past medical history as stated above that presented to the emergency room with complaints of shortness of breath and cough. For more details about his presentation, I refer you to his history and physical. The impression was that the patient's symptoms were related to GERD. He has been on multiple courses of antibiotics recently with no resolution of his cough and the sudden worsening of his symptoms overnight suggests reflux is playing a role. The patient was started on steroids and PPI with improvement of his symptoms. He was seen in consultation by Pulmonology (Dr. Rod) and her impression is that the patient is an 84-year-old male, former smoker with significant occupational exposure including exposure to asbestos that was admitted with shortness of breath and wheezing. His symptoms suggest possible reactive airways disease secondary to laryngeal reflux. She recommended GERD therapy as he had discontinued it about a week prior with possible return of symptoms. The patient received education regarding GERD and he was thought to be stable for discharge today. PHYSICAL EXAMINATION: Vital Signs: Temperature 97.5, heart rate is 81, respiratory rate is 22, oxygen saturation 92% on 2 L nasal cannula, blood pressure is 142/60. General: The patient is a pleasant elderly gentleman, sitting up in a recliner, in no acute distress. CVS: Normal S1, S2. Regular rate and rhythm. Chest: Breath sounds present bilaterally, diminished with scattered wheeze. Neuro: He is alert and oriented x2. Able to move all 4 extremities. DIET: Heart healthy diet. ACTIVITIES: As tolerated. DISPOSITION: To home. STATUS WHILE IN THE HOSPITAL: Observation. He was advised to continue his omeprazole and follow up with Dr. Jason. Depending on his response, he may benefit from a GI evaluation. Please keep in mind that this is a summarized version of this patient's hospital stay. If you need more information, please feel free to call me at or please obtain the full medical records. TIME SPENT: Approximately 45 minutes was spent to complete this discharge. [id number]/CPS #: [id number] MTDD
== END 2019-02-11 17:40 | disposition home or self-care (01) ==
LOC: ED 06:17 → MED 08:46
PROVIDERS: ADMIT Internal Medicine; ATTEND Internal Medicine
DX: J44.1 Chronic obstructive pulmonary disease with (acute) exacerbation (principal); K21.9 Gastro-esophageal reflux disease without esophagitis; J44.9 Chronic obstructive pulmonary disease, unspecified; I10 Essential (primary) hypertension; G51.0 Bell's palsy; Z85.828 Personal history of other malignant neoplasm of skin; N40.0 Benign prostatic hyperplasia without lower urinary tract symptoms; Z79.82 Long term (current) use of aspirin; Z87.891 Personal history of nicotine dependence
CPT/HCPCS: 36415; 71045; 80053; 82803; 83605; 83880; 84484; 85025; 85610; 85730; 86140; 87040; 87899; 93005; 94640; 96365; 96375; 96376; 99283; A9270-GY; G0378; J0456; J0696; J1100; J1644; J2920; J3475

== ENCOUNTER 2019-03-23 14:55 | Inpatient (IN) | payer MEDICARE ==
--- NOTE | 2019-03-23 16:28 | ED ---
Shortness of Breath - HPI Summary HPI Summary: This patient is an 84 year old M [place] [facility] [place] a chief complaint of SOB on exertion for the past week. The pt states that he was discharged from the hospital about a week ago after receiving bronchitis treatments. He states that ever since he has been home he has been suffering from SOB when ambulating. He states that he wasn't using O2 two weeks ago. He also reports that his ankles swell up throughout the day but resolved with rest and elevation. no pain. He denies any CP, abdominal pain, N/V/D, sore throat, fevers , chills, diaphoresis, pain, and headaches. He states that he has been in the ED four times in the past 6 weeks for bronchitis. He states that he has a persistent nonproductive cough since the onset. He uses 2 liters of 02 at home and takes one usage of the nebulizer at home. He states that the nebulizer helps with his COPD. He states that when he ambulates the 02 drops drastically once he stands up to move in his house or outside. He states that he doesnt smoke anymore but his daughter smokes outside his house. He states that his 02 saturation after leaving the hospital is around 92% while ambulating. Patients medication reviewed this visit. States that he a visit coming up at the Status Controller [place] [facility] Medications reviewed - History of Current Complaint Chief Complaint: EDUpperRespComplaint Time Seen by Provider: 03/23/19 15:29 Hx Obtained From: Patient, Medical Records Onset/Duration: Gradual Onset, Lasting Weeks - 1, Still Present Timing: Intermittent Episodes Lasting: - SOB occurs on exertion Current Severity: None Dyspnea At: Exertion Aggravating Factors: Other - ambulation Alleviating Factors: Oxygen - 2 liters at home, Other - Nebulizers Associated Signs & Symptoms: Negative - CP, abdominal pain, N/V/D, sore throat, fevers, chills, diaphoresis, pain, and headaches, Cough (Nonproductive), Edema - Loweer extemities swell as the day go on Related History: Similar Episode - Reports having bronchitis 4 times in the past 6 weeks - Allergy/Home Medications Allergies/Adverse Reactions: Allergies Allergy/AdvReac Type Severity Reaction Status Date / Time Egg Derived Allergy Unknown Verified 03/23/19 15:17 Reaction Details PMH/Surg Hx/FS Hx/Imm Hx Previously Healthy: No Cardiovascular History: Reports: Hx Hypertension Respiratory History: Reports: Hx Chronic Obstructive Pulmonary Disease (COPD), Hx Pneumonia Denies: Hx Asthma Sensory History: Reports: Hx Contacts or Glasses Denies: Hx Deafness, Hx Hearing Aid, Hx Hearing Problem Opthamlomology History: Reports: Hx Contacts or Glasses - Surgical History Surgical History: None Infectious Disease History: No Infectious Disease History: Denies: Traveled Outside the [place] in Last 30 Days - Family History Known Family History: Positive: Hypertension, Non-Contributory Negative: Diabetes - Social History Alcohol Use: None Hx Substance Use: No Substance Use Type: Reports: None Hx Tobacco Use: Yes Smoking Status (MU): Former Smoker Amount Used/How Often: 10 years Have You Smoked in the Last Year: No Review of Systems Negative: Fever, Chills, Skin Diaphoresis Negative: Sore Throat Negative: Chest Pain Positive: Shortness Of Breath - On exertion, Cough - nonproductive Negative: Abdominal Pain, Vomiting, Diarrhea, Nausea Positive: Other - Pt denies pain Negative: Headache All Other Systems Reviewed And Are Negative: Yes Physical Exam - Summary Physical Exam Summary: Vital Signs Reviewed: Yes A+Ox3, no distress, speakng full easy sentences Eyes: Conjunctiva Clear, AMINTA. EOM intact and full ENT: Hearing grossly normal TM x 2 clear, mmoist, uvula midline, no exudate, no erythema Neck: Positive: Supple Respiratory: Positive: No respiratory distress, No accessory muscle use + CTA throughout mild scattered wheeze intermittent cough Cardiovascular: RRR nl s1, s2 no m/r CBT <2 sec abd soft + BS nt/nd no guarding, no distension Musculoskeletal Exam: AVITIA x 4 without difficulty Strength Intact, ROM Intact Neurological: Positive: Alert, + sensation throughout Psychological: Positive: Normal Response To Family Skin: Positive: no rash, no ecchymosis Triage Information Reviewed: Yes Vital Signs On Initial Exam: Initial Vitals Temp Pulse Resp BP Pulse Ox 97.5 F 71 20 117/64 94 03/23/19 15:04 03/23/19 15:04 03/23/19 15:04 03/23/19 15:04 03/23/19 15:04 Diagnostics - Vital Signs Vital Signs Temp Pulse Resp BP Pulse Ox 03/23/19 15:04 97.5 F 71 20 117/64 94 - Laboratory Result Diagrams: 03/25/19 05:57 03/25/19 05:57 Lab Statement: Any lab studies that have been ordered have been reviewed, and results considered in the medical decision making process. - Radiology CXR Radiology Interpretation Completed By: Radiologist Summary of Radiographic Findings: EMPHYSEMA WITH FIBROTIC CHANGES SIMILAR TO THE FEBRUARY 10, 2019 EXAMINATION. ED physician has reviewed this report. - CT Chest/Thorax CT CT Interpretation Completed By: Radiologist Summary of CT Findings: No evidence of PE. No effusions. There is mild acute infiltrate in the lung bases suggestive of developing pneumonia. Severe underlying emphysematous changes. ED physician has reviewed this report. - EKG No standard instances Cardiac Rate: NL - 1609 rate 71 EKG Rhythm: Sinus Rhythm ST Segment: Normal Ectopy: None Re-Evaluation - Re-Evaluation First Eval Comment: reviewed labs and cxr. awiating CT result. continues with hypoxia, sob with ambulation. will admit- d/w Reina Burdick NP - hospitalist Course/Dx - Course Course Of Treatment: Pt with 6 weeks progressive, intermittent SOB particularly with walking. Pt with COPD on oxygen. Pt states was improving with prednisone - bur currently off. States litle sx at rest but profound sob with sats in 80s with abulation. VSS. pt wtih scattered exp wheeze. will check cxr, cta, labs , nebs, solumedrol. review hospital chart. likely obv - Diagnoses Provider Diagnoses: COPD (chronic obstructive pulmonary disease), KOTHARI (dyspnea on exertion) - Physician Notifications Discussed Care of Patient With: Reina Burdick NP Discharge - Sign-Out/Discharge Documenting (check all that apply): Patient Departure - admitted Patient Received Moderate/Deep Sedation with Procedure: No - Discharge Plan Condition: Stable Disposition: ADMITTED TO [facility] - Billing Disposition and Condition Condition: STABLE Disposition: Admitted to [facility] - Attestation Statements Document Initiated by Han: Yes Documenting Caroleeibjay: Unruly Blackman Provider For Whom Han is Documenting (Include Credential): Marilia Espinal MD Scribe Attestation: Unruly Michel, scribed for Marilia Espinal MD on 03/26/19 at 1137. Scribe Documentation Reviewed: Yes Provider Attestation: The documentation as recorded by the Unruly elliott accurately reflects the service I personally performed and the decisions made by me, Marilia Espinal MD Status of Scribjay Document: Viewed
[2019-03-23] MEDS ORDERED: Albuterol/Ipratropium NEB.SOL* Albuterol 2.5 MG/Ipratropium 0.5 MG 3 ML INH ONE (16:40)
[2019-03-23] MEDS ORDERED: methylPREDNISolone 125 MG* 2 ML VIAL IV ONE (16:41)
--- OUTSIDE RECORDS SUMMARY | 2019-03-23 16:50 | XMS REPORT | Continuity of Care Document ---
:1935 External Reference #:[id number] Author Name Tania Vazquez Care Team Providers Name Role Phone Maurice Jason MD Primary Care Physician Unavailable Payers Date Identification Numbers Payment Provider Subscriber Policy Number: [id number] Medicare Mookie Schneider PayID: [id number] [address] [place] [address] Effective: 2016 Policy Number: [facility] Mookie Schneider [id number] PayID: [id number] [address] [place] [address] Problems Active Problems Provider Date Cough Clemente Raman MD Onset: 01/27/2019 Benign prostatic hyperplasia with lower urinary tract Clemente Raman MD Onset: symptoms Chronic obstructive pulmonary disease with (acute) Clemente Raman MD Onset: 01/27 exacerbation Essential hypertension Clemente Raman MD Onset: 01/27/2019 Family History Date Family Member(s) Observation Comments Mother due to Natural Causes () - In her 90's Siblings 1 Social History Type Date Description Comments Sex Unknown Marital Status Lives With Daughter Occupation Retired Tobacco Use Start: Unknown End: Former Cigarette Smoker 1 Unknown Pack Daily Cigarette Use Pack Years - 10 Smoking Status Reviewed: 03/10/19 Former Cigarette Smoker 1 Pack Daily ETOH Use Has consumed alcohol in the past Tobacco Use Start: Unknown End: Patient is a former smoker Unknown Recreational Drug Use Never Used Drugs Exercise Type/Frequency Does not exercise Allergies, Adverse Reactions, Alerts Description No Known Drug Allergies Medications Active Medications SIG Qnty Indications Ordering Date Provider Flonase Allergy Relief 1 puff nasal 36.400ml J44.9 Guillermo Son, 2018 twice a day 50mcg/Act Suspension Cyanocobalamin 1 sublingual 90units Clemente Raman MD 01/27/2019 Crystals every day Meclizine HCL 1 pill twice a 30tabs Clemente Raman MD 01/27/2019 12.5mg day if too Tablets sedating reduce to one pill at bedtime Protonix take 1 pill 30tabs R05 Clemente Raman MD 01/27/[address] daily. If does not help the cough after 1 week then stop Guaifenesin Unknown Clotrimazole dissolve into Unknown 10mg Jordan mouth slowly 5 times a day x 2 weeks Tiotropium 1 cap inhalation Unknown daily Prednisone taper Unknown 50mg Tablets Albuterol Sulfate inhale 1 vial via Unknown nebulizer three 1.25mg/3ML Nebulizer times a day Tamsulosin HCL 1 by mouth every Unknown 0.4mg day Capsules Multi Complete daily Unknown Capsules Advair Diskus 1 puff twice a Unknown day 500-50mcg/Dose Aerosol Cholecalciferol 1000 unit 1tablet Unknown Powder by mouth every day- Atenolol 1 by mouth every Unknown 25mg Tablets day Aspirin 81 Low Dose 1 by mouth every Unknown 81mg day Chewtabs Amlodipine Besylate 1 by mouth every Unknown 5mg day Tablets Albuterol Sulfate HFA 2 puffs every 4 Unknown hours 108(90Base) mcg/Act Aerosol History Medications Nystatin 2ml in each side of Unknown - 03/10/2019 [id number] Suspension mouth, swish, wipe tongue with wash cloth then swallow, four times a day for 10 days Vital Signs Date Vital Result Comment 03/10/2019 12:20pm Height 69 inches 5'9" Weight 137.00 lb Heart Rate 72 /min BP Systolic Sitting 120 mmHg Lue regular cuff BP Diastolic Sitting 60 mmHg Lue regular cuff Respiratory Rate 12 /min O2 % BldC Oximetry 93 % BMI (Body Mass Index) 20.2 kg/m2 Neck Circumference in inches 15 01/27/2019 10:29am Weight 136.00 lb Heart Rate 64 /min BP Systolic 156 mmHg Respiratory Rate 18 /min Body Temperature 97.3 F O2 % BldC Oximetry 94 % Encounters Type Date Location Provider Dx Diagnosis Office Visit 02/11/2019 [facility] Jose Yates44.1 Chronic obstructive 10:25a Assamina julian M.D. pulmonary disease w Hospitalists (acute) exacerbation G51.0 Lazcano's palsy I10 Essential (primary) hypertension Z85.828 Personal history of other malignant neoplasm of skin N40.0 Benign prostatic hyperplasia without lower urinry tract symp Office Visit 02/10/2019 10:24a [facility] Aleksandra Garcia44.1 Chronic Assoc,amina Martinez M.D. obstructive Hospitalists pulmonary disease w (acute) exacerbation I10 Essential (primary) hypertension N40.0 Benign prostatic hyperplasia without lower urinry tract symp Office Visit 01/27/2019 10:00a DO Not Use Care Jose Hickman44.1 Chronic obstructive Robert MD pulmonary disease w [facility] [employer] [facility] (acute) exacerbation I10 Essential (primary) hypertension N40.1 Benign prostatic hyperplasia with lower urinary tract symp R05 Cough Office Visit 01/20/2019 [facility] Thomas Knox J44.1 Chronic 9:26a Assoc,amina Jordan MD obstructive Hospitalists pulmonary disease w (acute) exacerbation I10 Essential (primary) hypertension N40.1 Benign prostatic hyperplasia with lower urinary tract symp Office Visit 01/19/2019 [facility] Thomas Knox J44.1 Chronic 9:25a Assoc,amina Jordan MD obstructive Hospitalists pulmonary disease w (acute) exacerbation I10 Essential (primary) hypertension N40.1 Benign prostatic hyperplasia with lower urinary tract symp Office Visit 01/18/2019 [facility] Gina J96.01 Acute respiratory 9:25a Assocamina PA-C failure with Hospitalists hypoxia J18.1 Lobar pneumonia, unspecified organism I10 Essential (primary) hypertension I49.9 Cardiac arrhythmia, unspecified Office Visit 08/04/2017 1:00p [facility] Jose Hickman44.1 Chronic Assoc,amina MARQUEZ obstructive Hospitalists pulmonary disease w (acute) exacerbation J18.1 Lobar pneumonia, unspecified organism I10 Essential (primary) hypertension J96.01 Acute respiratory failure with hypoxia Office Visit 08/03/2017 1:00p [facility] Clemente Raman, J44.1 Chronic Assoc,pc obstructive Hospitalists pulmonary disease w (acute) exacerbation J18.1 Lobar pneumonia, unspecified organism J96.01 Acute respiratory failure with hypoxia I10 Essential (primary) hypertension Office Visit 08/02/2017 12:59p [facility] Clemente Raman, J44.1 Chronic Assoc,pc obstructive Hospitalists pulmonary disease w (acute) exacerbation J18.1 Lobar pneumonia, unspecified organism J96.01 Acute respiratory failure with hypoxia I10 Essential (primary) hypertension Office Visit 08/01/2017 [facility] J18.1 Lobar pneumonia, 12:58p Assoc,amina Bhagat, COMPUTER TECHNOLOGY TRAINER unspecified Hospitalists organism J44.1 Chronic obstructive pulmonary disease w (acute) exacerbation I10 Essential (primary) hypertension R09.02 Hypoxemia Office Visit 07/31/2017 [facility] J18.1 Lobar pneumonia, 12:57p Assoc,amina Bhagat, COMPUTER TECHNOLOGY TRAINER unspecified Hospitalists organism J44.1 Chronic obstructive pulmonary disease w (acute) exacerbation I10 Essential (primary) hypertension R09.02 Hypoxemia Office Visit 02/08/2017 [facility] J44.1 Chronic 10:50a Assoc,pc Christen, COMPUTER TECHNOLOGY TRAINER obstructive Hospitalists pulmonary disease w (acute) exacerbation J18.1 Lobar pneumonia, unspecified organism I10 Essential (primary) hypertension Office Visit 02/07/2017 [facility] J44.1 Chronic 10:50a Assoc,pc Christen, COMPUTER TECHNOLOGY TRAINER obstructive Hospitalists pulmonary disease w (acute) exacerbation J18.1 Lobar pneumonia, unspecified organism I10 Essential (primary) hypertension Office Visit 02/06/2017 [facility] J44.1 Chronic 10:49a Assoc,pc Christen, COMPUTER TECHNOLOGY TRAINER obstructive Hospitalists pulmonary disease w (acute) exacerbation J18.1 Lobar pneumonia, unspecified organism I10 Essential (primary) hypertension Office Visit 02/05/2017 [facility] J44.1 Chronic 10:48a Assoc,pc Maykel, N.P. obstructive Hospitalists pulmonary disease w (acute) exacerbation J18.1 Lobar pneumonia, unspecified organism I10 Essential (primary) hypertension Plan of Treatment 03/10/2019 - Guillermo Son MDJ44.9 Chronic obstructive pulmonary disease, unspecifiedNew Medication:Flonase Allergy Relief 50 mcg/Act - 1 puff nasal twice a dayNew Xrays:CT Chest W/O, Ordered: 03/10/19New Orders:PFTW/Spirometry Vol Pre/Post Bronchdilat Dlco Complete, Ordered: 03/10/19Comments:Continue Advair, Spiriva and ventolin. Continue Protonix for cough and I will add nasal steroids to see if the cough gets better.Follow up:RTC in 3 months.
[2019-03-23] MEDS: NS 0.9% 1000 ML** 1,000 ML IV SCH ×2 (17:03→21:45)
[2019-03-23 17:19] LABS: ABS Basophils 0.1 10^3/ul (0-0.2); ABS Eosinophils 0.1 10^3/ul (0-0.6); ABS Monocytes 0.9 10^3/ul (0-0.8); ABS Neutrophils 10.9 10^3/ul (1.5-7.7); Eosinophil % 0.9 %; Hematocrit 42 % (42-52); Hemoglobin 13.8 g/dL (14.0-18.0); Lymphocyte % 7.4 %; Mean Corpuscular HGB Conc 33 g/dL (31-36); Mean Corpuscular Hemoglobin 28 pg (27-31); Mean Corpuscular Volume 86 fL (80-94); Mean Platelet Volume 8.8 fL (7.4-10.4); Platelet Count 372 10^3/uL (150-450); Red Blood Count 4.87 10^6 /uL (4.18-5.48); Red Cell Distribution Width 16 % (10-15)
[2019-03-23 17:31] LABS: BUN/Creatinine Ratio 15.7 (8-20); Calcium 9.3 mg/dL (8.6-10.3); EGFR African American 106.5 (>60); EGFR Non-African American 88.1 (>60); Potassium 3.7 mmol/L (3.5-5.0)
[2019-03-23] MEDS ORDERED: Iohexol 350* (CONTRAST) 500 ML MDV IV ONE (17:49)
[2019-03-23] MEDS ORDERED: Albuterol HFA INHALER* 8 gm MDI INH PRN (19:30)
[2019-03-23] MEDS ORDERED: Albuterol 2.5 MG/3 ML NEB.SOL* (0.083%) INH PRN (19:30)
[2019-03-23] MEDS ORDERED: Meclizine TAB* 12.5 MG PO PRN (19:30)
[2019-03-23 20:03] LABS: C Reactive Protein 24.13 mg/L (<8.01)
--- NOTE | 2019-03-23 22:28 | HP ---
CC: Dr. Jason * HISTORY AND PHYSICAL: DATE OF ADMISSION: 03/23/19 PRIMARY CARE PHYSICIAN: Dr. Jason. ATTENDING PHYSICIAN: Dr. Joleen Stephens * (dictation provided by Reina Burdick NP ). CHIEF COMPLAINT: Shortness of breath. HISTORY OF PRESENT ILLNESS: Mr. Schneider is an 84-year-old male with a past medical history of COPD, on 2 L home O2 as well as hypertension, who presents today to the hospital with concern for shortness of breath. Mr. Schneider has been admitted to our hospital in December and January for similar complaints of shortness of breath, thought to be secondary to COPD exacerbation. His last admission ended with a discharge on 02/17/19, he was thought to have to have COPD exacerbation secondary to GERD and omeprazole was started. He did see Dr. Rod in consultation during that admission. Mr. Schneider states he did follow up with Dr. Jason and no issues were identified at that time. He also followed up with Dr. Rod with plan for pulmonary function testing on 04/07/19. Mr. Schneider states that he started feeling little worse about 3 days ago. He noticed that he was more short of breath with minimal activity. Last night, he was unable to sleep due to feeling unwell, although he does not quite endorse being short of breath, he simply could not fall asleep. He states that he does sleep with the head of the bed elevated. This morning, he got up to put his pants on to go to the bathroom and just with that amount of activity, he was extremely short of breath and reaching for his inhalers. He was using his 2 L nasal cannula. He notes that his O2 saturation runs about 97% at rest and then it will fall to 89% with ambulation with his oxygen. Most importantly, he feels extremely dyspneic with even slightest activity. He denies fever. He denies chest pain. He denies nausea, vomiting, diarrhea, or abdominal pain. He has been eating and drinking normally. The patient does endorse new edema in his lower extremities. He states that this is a relatively new finding for him. He has noted that in the morning, when he wakes up, his legs are normal, but by the end of the day, there is edema at the feet and ankles. In the emergency room, Mr. Schneider had labs, which showed a very mild leukocytosis. His vital signs at rest were stable. He ambulated on 2L NC in the ED with finding of SpO2 85%. The patient does endorse edema in his lower extremities. He states that this is a relatively new finding for him. In the morning, when he wakes up, his legs are normal, but by the end of the day, he is noticing edema. PAST MEDICAL HISTORY: 1. COPD, on 2 L home O2 with a chronic hypoxic respiratory failure. 2. Hypertension. 3. Lazcano's palsy. 4. Skin cancer. 5. BPH. MEDICATIONS: Outpatient are: 1. Meclizine 12.5 mg p.o. t.i.d. p.r.n. 2. Fluticasone with salmeterol 500/50 one puff inhaled b.i.d. 3. Albuterol nebulizers p.r.n. 4. Cholecalciferol 2000 units p.o. daily. 5. Atenolol 12.5 mg p.o. daily. 6. Aspirin 81 mg p.o. daily. 7. Albuterol inhaler 2 puffs inhaled four times a day p.r.n. 8. Tiotropium 1 cap inhaled daily. 9. Tamsulosin 0.4 mg p.o. daily. 10. Omeprazole 20 mg p.o. daily. 11. Cyanocobalamin 1000 mcg p.o. daily. 12. Amlodipine 5 mg p.o. daily. ALLERGIES: From EGG and DAIRY PRODUCTS. SOCIAL HISTORY: The patient is a former smoker, but quit over 30 years ago and only smoked 1 pack a day for 10 years. He denies alcohol or drug use. He is a retired [employer] employee and his healthcare proxy would be his daughter, Tasha Schneider. REVIEW OF SYSTEMS: A 14-point review of systems was completed with Mr. Schneider and all those not mentioned above were negative. PHYSICAL EXAMINATION GENERAL: Mr. Schneider is lying in bed. He is in no acute distress. VITAL SIGNS: Temperature 97.5, pulse rate 92, respiratory rate 24, O2 saturation 95% on 2 L nasal cannula, blood pressure 140/76. LUNGS: Clear, but diminished today with no accessory muscle use. HEART: S1 and S2. No murmur, rub, or gallop, and regular. ABDOMEN: Soft, nontender. Bowel sounds positive x4. EXTREMITIES: No cyanosis or edema. NEURO: He is alert, he is oriented x3. He moves all extremities equally. There is no facial asymmetry or focal weakness. Extraocular movements are intact. SKIN: Intact. DIAGNOSTIC STUDIES/LAB DATA: Sodium 140, potassium 3.7, chloride 105, serum bicarbonate 29, BUN 13, creatinine 0.83, glucose 116. BNP 146. WBC 13.0, hemoglobin 13.8, hematocrit 42, platelet count 372. The patient has a chest thorax CTA completed, but the report is pending. Chest x-ray shows "emphysema with fibrotic changes similar to 02/10/19 exam." ASSESSMENT AND PLAN: Mr. Schneider is an 84-year-old male with past medical history of chronic obstructive pulmonary disease and chronic hypoxic respiratory failure , on 2 L nasal cannula, who presents to the hospital with another episode of dyspnea on exertion. Our plans are for observation in the hospital for the followin. Dyspnea on exertion with acute on chronic hypoxic respiratory failure : The patient is quite dyspneic with any activity. He does not have wheezing on exam today, though his lungs are diminished. It is possible that he could have chronic obstructive pulmonary disease exacerbation. A CTA chest has ruled out pulmonary embolism. There is a finding of a questionable infiltrative process. However he has no leukocytosis and his CRP is only 24. I have a low suspicion for pneumonia at this point. I questioned whether or not perhaps his shortness of breath is related to a cardiac issue. He has not had an echocardiogram per our files or per his recollection. Plan for echocardiogram tomorrow. I think that cardiac dysfunction might also explain while he is having new lower extremity edema. He has continued on his omeprazole out of the concern that his gastroesophageal reflux disease was contributing to chronic obstructive pulmonary disease exacerbations. For now, I plan to treat with a low dose of prednisone 40 mg p.o. daily, and he will have DuoNeb nebulizers and oxygen. 2. Hypertension. Plan to continue amlodipine. 3. DVT prophylaxis with heparin subcu. 4. Benign prostatic hyperplasia. Continue tamsulosin. 5. Code status. He is full code. This was reviewed with the patient at the bedside today. TIME SPENT: Approximately 60 minutes was spent on the admission of this patient , more than half time was spent with the patient at the bedside reviewing the events leading up to this hospitalization, performing the physical examination, and reviewing my plan of care. REINA BURDICK NP [id number]/[facility] #: [id number] [place]
[2019-03-24] MEDS: Mometasone/Formoter 200/5 MDI INH SCH ×3 (00:41→19:49)
[2019-03-24] MEDS: NS 0.9% 1000 ML** 1,000 ML IV SCH (08:27)
[2019-03-24] MEDS: Atenolol TAB* 25 MG PO SCH (08:28)
[2019-03-24] MEDS: amLODIPine TAB* 5 MG PO SCH (08:30)
[2019-03-24] MEDS: Tamsulosin CAP* 0.4 MG PO SCH (08:31)
[2019-03-24] MEDS: Aspirin EC TAB* 81 MG TAB.EC PO SCH (08:31)
[2019-03-24] MEDS: Pantoprazole TAB * 40 MG TAB PO SCH (08:31)
[2019-03-24] MEDS: Cholecalciferol TAB* 1000 UNITS PO SCH (08:31)
[2019-03-24] MEDS: Cyanocobalamin TAB* 500 MCG PO SCH (08:31)
--- NOTE | 2019-03-24 08:56 | ECHO ---
*[facility]* [place] [address] Fax #: [phone] Transthoracic Echocardiogram Patient: Mookie Schneider : 1935 Study Date: 03/24/2019 Age: 84 Gender: M HR: 87 bpm Height: 69 in /175.3 cm Weight: 139.7 lb /63.5 kg BMI/BSA: 20.7 kg/m^2 1.78 m^2 HR: 87 bpm *Aerospace Mechanic: * Emily Snyder [facility] *Referring Physician: * Reina Burdick *Reading Physician: * Errol Harmon MD Indications: SOB. History: Chronic obstructive pulmonary disease. Risk factors: Hypertension. Conclusions Summary: 1. Left ventricle: Systolic function is normal. The estimated ejection fraction is 55-60%. Wall motion is normal; there are no regional wall motion abnormalities. 2. Mitral valve: There is no significant regurgitation. 3. Aortic valve: There is no evidence of stenosis. 4. Tricuspid valve: There is trivial regurgitation. 5. Pericardium, extracardiac: There is no significant pericardial effusion. 6. Pulmonary arteries: Systolic pressure can not be accurately estimated. 7. Study data: No prior study is available for comparison. Study data: Transthoracic echocardiogram. Procedure: Transthoracic echocardiography was performed. Image quality was adequate. The study was technically limited due to poor parasternal windows. Complete 2D, spectral Doppler, and color flow Doppler. Location: Bedside. Patient status: Inpatient. Patient room number: 420 02. No prior study is available for comparison. Rhythm: Normal sinus rhythm. Findings Left ventricle: The cavity size is normal. Wall thickness is normal. Systolic function is normal. The estimated ejection fraction is 55-60%. Wall motion is normal; there are no regional wall motion abnormalities. There is no consistent Doppler evidence of clinically significant diastolic dysfunction. Right ventricle: The cavity size is normal. Systolic function is normal. Left atrium: The atrium is normal in size. Right atrium: The atrium is normal in size. Mitral valve: The leaflets are normal thickness. There is no evidence of stenosis. There is no significant regurgitation. Aortic valve: The valve is trileaflet. The leaflets are mildly calcified. There is no evidence of stenosis. There is no significant regurgitation. Tricuspid valve: The leaflets are normal thickness. There is no evidence of stenosis. There is trivial regurgitation. Pulmonic valve: The leaflets are normal thickness. There is no evidence of stenosis. There is mild regurgitation. Aorta: Aortic root: The aortic root is appears normal. Ascending aorta: The ascending aorta is poorly visualized. Aortic arch: The aortic arch is poorly visualized. Pericardium: There is no significant pericardial effusion. Pulmonary arteries: The main pulmonary artery is normal-sized. Systolic pressure can not be accurately estimated. Systemic veins: Inferior vena cava: The vessel is normal in size. The respirophasic diameter changes are in the normal range (>= 50%). Measurements Left ventricle Value Ref Right atrium continued Value Ref SUMAYA, LAX 4.4 cm 4.2 - 5.8 ML dim, ES, A4C 3.0 cm 2.6 - 4.4 ESD, LAX 3.7 cm 2.5 - 4.0 SI dim, ES, A4C 3.5 cm 3.4 - 5.3 FS, LAX (L) 17 % 25 - 43 SI dim/bsa, ES, A4C 2.0 cm/m^2 1.8 - 3.0 PW, ED, LAX 0.8 cm 0.6 - 1.0 Estimated RAP 8 mm Hg --------- EF (L) 36 % 52 - 72 E', lat cristiano, TDI (L) 7.4 cm/sec >=10.0 Aortic valve Value R ef E/e', lat cristiano, 9 Cristiano diam, ED 2.2 cm ---- ----- TDI Peak v, S 1.05 m/sec --------- E', med cristiano, TDI (L) 6.6 cm/sec >=7.0 VTI, S 20.6 cm - -------- E/e', med cristiano, 10 Mean grad, S 2.0 mm Hg ---- ----- TDI Peak grad, S 4.0 mm Hg --------- E', avg, TDI 7.0 cm/sec E/e', avg, TDI 9 <=14 Mitral valve Value R ef Peak E 0.65 m/sec --------- LVOT Value Ref Peak A 0.85 m/sec --------- Peak kasi, S 0.71 m/sec Decel time 148 ms --------- Mean grad, S 1 mm Hg Peak E/A ratio 0.8 --------- Ventricular septum Value Ref Pulmonic valve Value Ref IVS, ED 0.9 cm 0.6 - 1.0 Peak v, S 1.21 m/sec --------- Peak grad, S 6.0 mm Hg --------- Right ventricle Value Ref SUMAYA, LAX 2.2 cm Aortic root Value Ref SUMAYA minor ax, 3.1 cm 1.9 - 3.5 Root diam 3.5 cm <4.0 A4C mid Aortic arch Value Ref Left atrium Value Ref Arch diam 2.8 cm --------- AP dim, ES 3.90 cm 3.00 - 4.00 Inferior vena cava Value Ref ML dim, A4C 3.8 cm Diam 1.5 cm --------- SI dim, A4C 4.3 cm Vol/bsa, ES, A/L 27 ml/m^2 16 - 34 Right atrium Value Ref SI dim, ES 3.5 cm 3.4 - 5.3 Legend: (L) and (H) lori values outside specified reference range. Prepared and electronically signed by Errol Harmon MD 03/24/2019 08:55
[2019-03-24] MEDS ORDERED: predniSONE TAB* 20 MG PO SCH (09:00)
[2019-03-24] MEDS ORDERED: Spiriva Inhaler DEVICE* 1 EACH DEVICE INH ONE (09:00)
--- NOTE | 2019-03-24 10:43 | PN ---
Subjective Date of Service: 03/24/19 Interval History: No cough Feels well at rest but SOB with exertion Denies CP, pleurisy, LH, N/V Objective Active Medications: Albuterol (Ventolin 2.5 Mg/3 Ml Neb.Digna*) 2.5 mg INH Q4H PRN PRN Reason: SOB/WHEEZING Albuterol (Ventolin Hfa Inhaler*) 2 puff INH QID PRN PRN Reason: SHORTNESS OF BREATH Amlodipine Besylate (Norvasc Tab*) 5 mg PO DAILY [facility] Last Admin: 03/24/19 08:30 Dose: 5 mg Aspirin (Aspirin Ec Tab*) 81 mg PO DAILY [facility] Last Admin: 03/24/19 08:31 Dose: 81 mg Atenolol (Tenormin Tab*) 12.5 mg PO DAILY [facility] Last Admin: 03/24/19 08:28 Dose: 12.5 mg Cholecalciferol (Vitamin D Tab*) 2,000 units PO DAILY [facility] Last Admin: 03/24/19 08:31 Dose: 2,000 units Cyanocobalamin (Vitamin B12 Tab*) 1,000 mcg PO DAILY [facility] Last Admin: 03/24/19 08:31 Dose: 1,000 mcg Sodium Chloride (Ns 0.9% 1000 Ml) 1,000 mls @ 100 mls/hr IV PER RATE [facility] Last Admin: 03/24/19 08:27 Dose: 100 mls/hr Azithromycin (Zithromax 500 Mg/250 Ml) 500 mg in 250 mls @ 250 mls/hr IVPB ONCE ONE Stop: 03/24/19 11:35 Azithromycin 250 mg/ Sodium (Chloride) 250 mls @ 250 mls/hr IVPB Q24H [facility] Stop: 03/28/19 11:59 Ceftriaxone Sodium 1 gm/ (Sodium Chloride) 50 mls @ 200 mls/hr IVPB Q24H [facility] Meclizine HCl (Antivert Tab*) 12.5 mg PO TID PRN PRN Reason: DIZZINESS Methylprednisolone Sodium Succinate (Solu-Medrol 40 Mg) 40 mg IV Q12H [facility] Mometasone Furoate/Formoterol Fumar (Dulera 200/5 Mdi*) 2 puff INH BID [facility] Last Admin: 03/24/19 00:41 Dose: Not Given Pantoprazole Sodium (Protonix Tab*) 40 mg PO DAILY [facility] Last Admin: 03/24/19 08:31 Dose: 40 mg Tamsulosin HCl (Flomax Cap*) 0.4 mg PO DAILY [facility] Last Admin: 03/24/19 08:31 Dose: 0.4 mg Tiotropium [place] (Spiriva Cap.Inh*) 1 cap INH DAILY [facility] Vital Signs - 8 hr 03/24/19 03/24/19 03/24/19 03:29 07:52 08:00 Temperature 97.6 F 97.2 F Pulse Rate 85 89 Respiratory 20 19 19 Rate Blood Pressure 123/59 115/91 (mmHg) O2 Sat by Pulse 94 97 Oximetry Oxygen Devices in Use Now: Nasal Cannula - 2L Appearance: NAD, interactive, talks in full sentences Eyes: No Scleral Icterus, PERRLA Ears/Nose/Mouth/Throat: NL Teeth, Lips, Gums Neck: NL Appearance and Movements; NL JVP Respiratory: Symmetrical Chest Expansion and Respiratory Effort, - - diminished , rales right base, barrel chest Cardiovascular: RRR Abdominal: NL Sounds; No Tenderness; No Distention, No Hepatosplenomegaly Lymphatic: No Cervical Adenopathy Skin: No Rash or Ulcers Neurological: Alert and Oriented x 3 Result Diagrams: 03/23/19 17:01 03/23/19 17:01 Assess/Plan/Problems-Billing Assessment: 84 yo M h/o severe emphysema with chronic resp failure on 2L home O2, multiple hospital stays this year for SOB thought in setting of COPD exacerbation returning with increased SOB particularly worse with ambulation - Patient Problems (1) Emphysema lung Comment: severe on home O2 10 pack year tobacco, asbestos exposure and other occupational chemicals possible COPD exacerbation, change PO prednisone to IV c/w controller meds (2) Pneumonia Comment: developing infiltrate on CTA last CT 2017 for comparisson no cough, fever, minimal elevation in WBC and CRP Will tx azithro and ctx however would like pulmonology to weigh in on other pulmonary etiologies that may mimic infectious causes ie BOOP etc (3) Pulmonary nodule Comment: pulm nodules stable (4) DVT prophylaxis Comment: HSQ
[2019-03-24] MEDS: Tiotropium CAP.INH* CAP.INH/18 MCG (USE ORDER SET !) INH SCH (11:06)
[2019-03-24] MEDS: cefTRIAXone(*) 1 GM in NS 0.9% 50 ML* 50 ML IVPB SCH (11:22)
[2019-03-24] MEDS ORDERED: Azithromycin 500 mg/250 ml NS 500 MG/250 ML BAG IVPB ONE (11:30)
[2019-03-24] MEDS: Heparin VIAL(*) 5000 UNITS/ML VIAL (FIVE THOUSAND) SUBCUT SCH ×2 (15:43→21:33)
--- NOTE | 2019-03-24 20:53 | CONS ---
PULMONARY CONSULTATION REPORT: DATE OF CONSULT: 03/24/19 CONSULTATION REQUESTED BY: Dr. Lynch. REASON FOR CONSULTATION: Evaluation of shortness of breath. HISTORY OF PRESENT ILLNESS: The patient is an 84-year-old male with history of COPD, on home O2 at 2 L, history of prior occupational exposures to asbestos and other chemicals with complicated course recently with multiple hospitalizations for shortness of breath being treated for COPD exacerbation. The patient also with significant improvement once he gets started on steroids. The patient also with concern for GERD, improved with treatment last time. The patient presents for evaluation of worsening shortness of breath. The patient reports worsening shortness of breath with minimal activity. He has been doing well after recent hospitalization and discharge, was seen as outpatient with stable symptoms. He developed shortness of breath with minimal activity and it was significant and he decided to come back to the emergency room. Denies chest pain, fevers, nausea, vomiting, diarrhea, abdominal pain, decreased appetite, or loss of weight. The patient also reports lower extremity edema. The patient noted to have mild leukocytosis while seen in the emergency room. He also with evidence of hypoxemia with O2 sat around 85% on 2 L. The patient with no significant wheezing. The patient was admitted for further evaluation of this dyspnea. The patient had CT of the chest. I have personally reviewed the images and with the patient today - no evidence of filling defects in pulmonary arteries. There is evidence of airspace opacities bilaterally, left greater than right. The patient also with significant emphysematous changes, predominantly in the upper lung zones. Echocardiogram revealed normal EF and could not evaluate for pulmonary hypertension. His EKG did not reveal any changes. At this time, he is being treated for acute COPD exacerbation. His CRP was mildly elevated. His BNP is also mildly elevated. No other lab abnormalities noted. The patient reports slight improvement in his symptoms, however, still gets significantly dyspneic with exertion. Denies chest pain, pleurisy, or other symptoms. PAST MEDICAL HISTORY: 1. COPD, on home O2. 2. Hypertension. 3. Lazcano's palsy. 4. Skin cancer. 5. BPH. MEDICATIONS: 1. Meclizine. 2. Fluticasone. 3. Albuterol. 4. Cholecalciferol. 5. Atenolol. 6. Aspirin. 7. Albuterol. 8. Tiotropium. 9. Flomax. 10. Omeprazole. 11. Cyanocobalamin. 12. Amlodipine. ALLERGIES: EGG and DAIRY PRODUCTS. SOCIAL HISTORY: Former smoker, quit over 30 years ago, smoked 1 pack per day for 10 years. 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 REVIEW OF SYSTEMS: All 14 systems reviewed, as per HPI. PHYSICAL EXAM: The patient in bed, in no apparent distress. Vital Signs: Temperature 97.7, pulse 78 beats per minute, respiratory rate 19 per minute, O2 sat 97% on 2 L, blood pressure 122/53. HEENT: Pupils equal, reactive to light. Mucous membranes moist. Lungs: Diminished air entry bilaterally. Rales bilaterally at bases. Cardiovascular: S1, S2 present. Abdomen: Soft, nontender, nondistended. Bowel sounds present. Extremities: Normal range of motion. Neurologic: Alert, awake, oriented x3. Skin: No rash. DIAGNOSTIC STUDIES/LAB DATA: Laboratory exam, WBC count 13, hemoglobin 13.8, hematocrit 42, platelet count 372. Sodium 140, potassium 3.7, chloride 105, bicarb 29, BUN 13, creatinine 0.83. CT of the chest as described above in HPI. IMPRESSION AND RECOMMENDATIONS: 84-year-old male with significant emphysematous changes; chronic COPD, on O2 at 2 L; recent hospitalization for acute COPD exacerbation, readmitted for worsening shortness of breath. The patient with evidence of airspace opacities bilaterally at the bases, more on the left than on the right. The patient also is complaining of lower extremity edema that is new for him. BNP is mildly elevated. Unclear if it is secondary to acute CHF exacerbation. Also suspect possible BOOP or WELDING PANTOGRAPH MACHINE OPERATOR. Would recommend IV steroids with a slow taper. Continue with antibiotics. Continue with nebulizers. Mucus clearance techniques. Thank you for allowing me to participate in the care of your patient. Will follow up with you. [id number]/[facility] #: [id number] [place]
[2019-03-24] MEDS: methylPREDNISolone SOD 40 MG* 1 ML VIAL IV SCH (21:33)
[2019-03-25] MEDS: Heparin VIAL(*) 5000 UNITS/ML VIAL (FIVE THOUSAND) SUBCUT SCH ×2 (04:09→05:16)
[2019-03-25 06:35] LABS: ABS Lymphocytes 0.7 10^3/ul (1.0-4.8); ABS Monocytes 0.4 10^3/ul (0-0.8); ABS Neutrophils 14.6 10^3/ul (1.5-7.7); Hematocrit 39 % (42-52); Hemoglobin 12.9 g/dL (14.0-18.0); Lymphocyte % 4.6 %; Mean Corpuscular HGB Conc 34 g/dL (31-36); Mean Corpuscular Hemoglobin 29 pg (27-31); Mean Corpuscular Volume 85 fL (80-94); Mean Platelet Volume 9.2 fL (7.4-10.4); Platelet Count 341 10^3/uL (150-450); Red Cell Distribution Width 16 % (10-15); White Blood Count 15.7 10^3/uL (3.5-10.8)
[2019-03-25 06:52] LABS: BUN/Creatinine Ratio 23.2 (8-20); Calcium 8.8 mg/dL (8.6-10.3); EGFR African American 131.9 (>60); Potassium 4.1 mmol/L (3.5-5.0)
[2019-03-25] MEDS: Mometasone/Formoter 200/5 MDI INH SCH (07:42)
[2019-03-25] MEDS: Tiotropium CAP.INH* CAP.INH/18 MCG (USE ORDER SET !) INH SCH (07:42)
[2019-03-25] MEDS: Tamsulosin CAP* 0.4 MG PO SCH (08:07)
[2019-03-25] MEDS: Cholecalciferol TAB* 1000 UNITS PO SCH (08:07)
[2019-03-25] MEDS: methylPREDNISolone SOD 40 MG* 1 ML VIAL IV SCH (08:07)
[2019-03-25] MEDS: Atenolol TAB* 25 MG PO SCH (08:07)
[2019-03-25] MEDS: Aspirin EC TAB* 81 MG TAB.EC PO SCH (08:07)
[2019-03-25] MEDS: Pantoprazole TAB * 40 MG TAB PO SCH (08:07)
[2019-03-25] MEDS: Cyanocobalamin TAB* 500 MCG PO SCH (08:07)
[2019-03-25] MEDS: amLODIPine TAB* 5 MG PO SCH (08:07)
[2019-03-25] MEDS: cefTRIAXone(*) 1 GM in NS 0.9% 50 ML* 50 ML IVPB SCH (11:15)
[2019-03-25] MEDS ORDERED: Azithromycin IV(*) 250 MG in NS 0.9% 250 ML* 250 ML IVPB SCH (11:30)
[2019-03-25 12:35] VITALS: BP 127/59
--- NOTE | 2019-03-25 13:05 | PN ---
Progress Note - Progress Note Date of Service: 03/25/19 - Pulm f/u note Note: Pt seen and examined at bedside. Pt reports feeing much better, ambulated without much dyspnea. Active Medications Generic Name Dose Route Start Last Admin Trade Name Freq PRN Reason Stop Dose Admin Albuterol 2.5 mg 03/23/19 19:30 Ventolin 2.5 Mg/3 Ml Neb.Digna* INH Q4H PRN SOB/WHEEZING Albuterol 2 puff 03/23/19 19:30 Ventolin Hfa Inhaler* INH QID PRN SHORTNESS OF BREATH Amlodipine Besylate 5 mg 03/24/19 09:00 03/25/19 08:07 Norvasc Tab* PO 5 mg DAILY [facility] Administration Aspirin 81 mg 03/24/19 09:00 03/25/19 08:07 Aspirin Ec Tab* PO 81 mg DAILY [facility] Administration Atenolol 12.5 mg 03/24/19 09:00 03/25/19 08:07 Tenormin Tab* PO 12.5 mg DAILY [facility]AH Administration Cholecalciferol 2,000 units 03/24/19 09:00 03/25/19 08:07 Vitamin D Tab* PO 2,000 units DAILY [facility] Administration Cyanocobalamin 1,000 mcg 03/24/19 09:00 03/25/19 08:07 Vitamin B12 Tab* PO 1,000 mcg DAILY [facility] Administration Heparin Sodium (Porcine) 5,000 units 03/24/19 14:00 03/25/19 05:16 Heparin Vial(*) SUBCUT 5,000 units Q8HR SARAH Administration Azithromycin 250 mg/ Sodium 250 mls @ 250 mls/hr 03/25/19 11:30 03/25/19 11: 34 Chloride IVPB 03/28/19 12:29 250 mls/hr Q24H [facility] Administration Ceftriaxone Sodium 1 gm/ 50 mls @ 200 mls/hr 03/24/19 11:00 03/25/19 11:15 Sodium Chloride IVPB 200 mls/hr Q24H [facility]AH Administration Meclizine HCl 12.5 mg 03/23/19 19:30 Antivert Tab* PO TID PRN DIZZINESS Methylprednisolone Sodium Succinate 40 mg 03/24/19 21:00 03/25/19 08:07 Solu-Medrol 40 Mg IV 40 mg Q12H [facility] Administration Mometasone Furoate/Formoterol Fumar 2 puff 03/23/19 22:00 03/25/19 07:42 Dulera 200/5 Mdi* INH 2 puff BID [facility] Administration Pantoprazole Sodium 40 mg 03/24/19 09:00 03/25/19 08:07 Protonix Tab* PO 40 mg DAILY [facility] Administration Tamsulosin HCl 0.4 mg 03/24/19 09:00 03/25/19 08:07 Flomax Cap* PO 0.4 mg DAILY [facility] Administration Tiotropium [place] 1 cap 03/24/19 09:00 03/25/19 07:42 Spiriva Cap.Inh* INH 1 cap DAILY [facility] Administration Vital Signs Temp Pulse Resp BP Pulse Ox 97.9 F 87 18 127/59 95 03/25/19 11:35 03/25/19 11:35 03/25/19 11:35 03/25/19 11:35 03/25/19 11:35 O/E: Pt in NAD HEENT: PERRLA, no JVD Lungs: Diminished air entry, no wheeze CVS: S1, S2+ Abd: Soft, BS+ Ext: Normal ROM Neuro: No focal deficits Laboratory Results - last 24 hr 03/25/19 03/25/19 05:57 05:57 WBC 15.7 H RBC 4.50 Hgb 12.9 L Hct 39 L MCV 85 MCH 29 MCHC 34 RDW 16 H Plt Count 341 MPV 9.2 Neut % (Auto) 92.6 Lymph % (Auto) 4.6 [place] % (Auto) 2.8 Eos % (Auto) 0.0 Baso % (Auto) 0.0 Absolute Neuts (auto) 14.6 H Absolute Lymphs (auto) 0.7 L Absolute Monos (auto) 0.4 Absolute Eos (auto) 0.0 Absolute Basos (auto) 0.0 Absolute Nucleated RBC 0.0 Nucleated RBC % 0.0 Sodium 142 Potassium 4.1 Chloride 109 Carbon Dioxide 28 Anion Gap 5 BUN 16 Creatinine 0.69 Est GFR ( Amer) 131.9 Est GFR (Non-Af Amer) 109.0 BUN/Creatinine Ratio 23.2 H Glucose 175 H Calcium 8.8 I/R: 84 yo M h/o severe emphysema with chronic resp failure on 2L home O2, multiple hospital visits recently for SOB , treated for COPD exacerbation returning with increased SOB particularly worse with ambulation Pt with improvement in steroids each time GERD was also suspected to be complicating his breathing and was started on PPI Pt with GGO on CT chest suggestive of inflammation, BOOP/PARLIAMENTARY COUNSEL in differential Will complete 7 day course of abx c/w bronchodilators Will do prolonged steroid taper, plan was discussed with Dr Lynch and pt Will f/u in pulm clinic in 2 weeks
--- NOTE | 2019-03-25 17:12 | DS ---
CC: Dr. Jason; Dr. Rod * DISCHARGE SUMMARY: DATE OF ADMISSION: 03/23/19 DATE OF DISCHARGE: 03/25/19 PRIMARY CARE PROVIDER: Dr. Jason at [facility]. DISPOSITION ON DISCHARGE: Home. CONDITION ON DISCHARGE: Improved. MEDICATIONS ON DISCHARGE: Include: 1. Meclizine 12.5 mg 3 times a day as needed for vertigo. 2. Advair 500/5 one puff twice daily. 3. Albuterol 2.5 mg every 4 hours as needed for shortness of breath. 4. Cholecalciferol 2000 units daily. 5. Atenolol 12.5 mg daily. 6. Aspirin 81 mg daily. 7. Albuterol HFA 2 puffs every 4 hours as needed for shortness of breath. 8. Tiotropium 1 cap inhaled daily. 9. Tamsulosin 0.4 mg daily. 10. Omeprazole 20 mg daily. 11. Vitamin B12 1000 mcg daily. 12. Amlodipine 5 mg daily. 13. Prednisone 30 mg daily for 1 week, then decreasing by 5 mg weekly until complete after 6 weeks. 14. Azithromycin 250 mg daily for 3 additional days. 15. Augmentin 875 mg twice daily for 5 additional days. Please note the addition of Augmentin, azithromycin and prednisone to home medications. PERTINENT LABORATORY DATA: White blood cell count on day of presentation is 13.0, 84% neutrophils, 0.9% eosinophils. BNP is 146. PERTINENT IMAGING: CTA of chest and thorax: Impression: Severe emphysematous changes seen with prominent bullae in upper lobes and reticulonodular thickening in the lower lobes. Three 6 mm peripheral nodular densities in the right base are unchanged. There is probably amenable superimposed acute infiltrate in the base left greater than right. CONSULTATIONS OBTAINED DURING THIS HOSPITAL STAY: Pulmonology. HISTORY OF PRESENT ILLNESS AND HOSPITAL COURSE: This is an 84-year-old man, third hospital stay this year, presenting with dyspnea on exertion, much worse in the last 1 to 2 weeks. His last 2 hospital stays, he has been admitted with shortness of breath thought in the setting of COPD exacerbations. His last exacerbation was thought to be exacerbated by GERD, improved with initiation of PPI. The patient had no preceding illness, cough, phlegm production in this setting; however, did have significantly increased dyspnea on exertion with even moderate amounts of movement at home. In the hospital, he was started on IV steroids as well as started on ceftriaxone and azithromycin. Over the 24 hours, his shortness of breath was dramatically improved. He was placed on his home oxygen requirement which is 2 L and ambulated without any desaturation less than 90%. He was able to ambulate back and forth of the bathroom and shower without any dyspnea, which was dramatically improved from his baseline over the last several weeks. He was seen in consultation with Pulmonology. It was concerned that this was not a COPD exacerbation and developing infiltrates on CAT scan did not represent infectious etiology given his absence of other clinical and/or laboratory markers including absence of leukocytosis, fever, cough, general malaise. There is a thought that this could represent other etiology such as cryptogenic organizing pneumonia. His symptoms have rapidly improved with steroids in the past as they did at this time. Recommendation was for a prolonged steroid taper 30 mg daily for a week, decreasing by [address] Rod will follow him in 2 weeks in clinic, at which point he also has PFT scheduled. This was all discussed with the patient, who is in understanding and agreement. At followup please; 1. Ensure the patient is adherent with slow steroid taper, increase dosing as necessary. 2. Ensure the patient follows with Dr. Rod as indicated above. 3. No other specific labs or vitals that need followup. Reasons to return to the hospital included but not limited to recurrent or worsening symptoms, increasing shortness of breath, dyspnea on exertion, chest pain, fevers, chills, night sweats, loss of consciousness, near loss of consciousness, inability to obtain or tolerate medications discussed with the patient. He acknowledged understanding. TIME SPENT: Greater than 60 minutes were spent on discharge of this patient, greater than half was spent [id number] with the patient. [id number]/[facility] #: [id number] [place]
== END 2019-03-25 14:00 | disposition home or self-care (01) | DRG 189 ==
LOC: ED 14:55 → MED 19:29 → OBSVTOIN 03-24 14:00
PROVIDERS: ADMIT Internal Medicine; ATTEND Internal Medicine
DX: J96.21 Acute and chronic respiratory failure with hypoxia (principal); I10 Essential (primary) hypertension; K21.9 Gastro-esophageal reflux disease without esophagitis; N40.0 Benign prostatic hyperplasia without lower urinary tract symptoms; J43.9 Emphysema, unspecified; R91.1 Solitary pulmonary nodule; Z79.82 Long term (current) use of aspirin; Z91.012 Allergy to eggs; Z91.011 Allergy to milk products; Z82.49 Family history of ischemic heart disease and other diseases of the circulatory system; Z87.891 Personal history of nicotine dependence; Z85.828 Personal history of other malignant neoplasm of skin
CPT/HCPCS: 36415; 71046; 71275; 80048; 83880; 85025; 86140; 93005; 93306; 94640; 99283; A9270-GY; G0378; J0456; J0696; J1644; J2920; J2930; J7512; Q9967

== ENCOUNTER 2019-08-15 03:56 | Inpatient (IN) | payer MEDICARE, OTHER ==
[2019-08-15] MEDS ORDERED: Albuterol 2.5 MG/3 ML NEB.SOL* (0.083%) INH ONE (04:45)
[2019-08-15] MEDS ORDERED: methylPREDNISolone 125 MG* 2 ML VIAL IV ONE (04:45)
--- NOTE | 2019-08-15 05:10 | ED ---
Shortness of Breath - HPI Summary HPI Summary: This pt is an 84 Y/O M presenting to [facility] with a CC of SOB that has been occurring since 08/13/19. He states that he has been visiting his respiratory therapist and going to pulmonary rehab for the last 3 weeks. He states that he started taking prednisone again and has been taking 2 pills per day. He states that he was unable to walk 10 feet to his bathroom on 08/13/19. He began coughing on 08/14/19 which was productive when he was getting dressed and was still becoming SOB very quickly when doing any type of physical exertion. He states that he is currently breathing well and states that resting usually alleviates his Sxs. He denies any fevers, chills, headaches, N/V, and CP. He states that he has a PMHx of COPD and has aggravating symptoms with deep breaths or exertion. - History of Current Complaint Chief Complaint: EDShortnessOfBreath Time Seen by Provider: 08/15/19 04:10 Hx Obtained From: Patient Onset/Duration: Sudden Onset, Lasting Days - 2, Still Present Timing: Constant Current Severity: None Dyspnea At: Exertion Aggravating Factors: Movement, Deep Breaths Alleviating Factors: Other - Rest Associated Signs & Symptoms: Negative - fevers, chills, headaches, N/V, and CP, Cough (Productive), Wheezing - Allergy/Home Medications Allergies/Adverse Reactions: Allergies Allergy/AdvReac Type Severity Reaction Status Date / Time Egg Derived Allergy Unknown Verified 08/15/19 04:10 Reaction Details PMH/Surg Hx/FS Hx/Imm Hx Previously Healthy: Yes Endocrine/Hematology History: Denies: Hx Diabetes Cardiovascular History: Reports: Hx Hypertension Respiratory History: Reports: Hx Chronic Bronchitis, Hx Chronic Obstructive Pulmonary Disease (COPD), Hx Pneumonia Denies: Hx Asthma, Other Respiratory Problems/Disorders GI History: Reports: Hx Gastroesophageal Reflux Disease Denies: Other GI Disorders History: Reports: Hx Benign Prostatic Hyperplasia Denies: Hx Renal Disease, Other Problems/Disorders Sensory History: Reports: Hx Contacts or Glasses Denies: Hx Deafness, Hx Hearing Aid, Hx Hearing Problem, Other Sensory Impairments Opthamlomology History: Reports: Hx Contacts or Glasses Denies: Other Sensory Impairments Neurological History: 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 Removed Infectious Disease History: No Infectious Disease History: Denies: Traveled Outside the [place] in Last 30 Days - Family History Known Family History: Positive: Hypertension, Non-Contributory Negative: Diabetes - Social History Occupation: Retired Lives: With Family - daughter Alcohol Use: None Hx Substance Use: No Substance Use Type: Reports: None Hx Tobacco Use: Yes Smoking Status (MU): Former Smoker Type: Cigarettes Amount Used/How Often: 10 years Have You Smoked in the Last Year: No Review of Systems Negative: Fever, Chills Negative: Chest Pain Positive: Shortness Of Breath, Cough - productive Negative: Vomiting, Nausea Negative: Headache All Other Systems Reviewed And Are Negative: Yes Physical Exam - Summary Physical Exam Summary: Skin: Warm, dry, no obvious rash Eyes: sclera anicteric, no conjunctival pallor ENT: mucous membranes moist, pharynx appears normal Neck: Supple, nontender Respiratory: Diminished breath sounds throughout, marked breathing bilaterally and expiratory wheezing on the expiratory phase Cardiovascular: Normal S1, S2. No murmurs. Normal distal pulses in tibial and radial bilaterally. Abdomen: Soft, nontender, normal active bowel sounds present Musculoskeletal: Normal, Strength/ROM Intact Neurological: A&Ox3, awake and alert, mentation is normal, speech is fluent and appropriate Psychiatric: affect is normal, does not appear anxious or depressed Triage Information Reviewed: Yes Vital Signs On Initial Exam: Initial Vitals Temp Pulse Resp BP Pulse Ox 98.9 F 111 14 107/71 95 08/15/19 04:07 08/15/19 04:07 08/15/19 04:07 08/15/19 04:07 08/15/19 04:07 Vital Signs Reviewed: Yes Procedures - Sedation Patient Received Moderate/Deep Sedation with Procedure: No Diagnostics - Vital Signs Vital Signs Temp Pulse Resp BP Pulse Ox 08/15/19 04:09 111 19 107/71 95 08/15/19 04:07 98.9 F 114 18 107/71 95 - Laboratory Result Diagrams: 08/17/19 04:41 08/17/19 04:41 Lab Statement: Any lab studies that have been ordered have been reviewed, and results considered in the medical decision making process. - Radiology CXR Radiology Interpretation Completed By: ED Physician Summary of Radiographic Findings: infiltrates of both bases. Pending offical review. - EKG 0459 Cardiac Rate: Tachycardia - 117 BPM EKG Rhythm: Sinus Tachycardia ST Segment: Normal Ectopy: None Summary of EKG Findings: sinus tachycardia at a rate of 114 BPM P waves, QRS complex, and T waves are within normal limits, T waves and intervals are normal , no ischemic changes. Interpreted by Dr. Alba at 0504 08/15/19. Course/Dx - Course Course Of Treatment: This pt is an 84 Y/O M presenting to [facility] with a CC of SOB that has been occurring since 08/13/19. He states that he has been visiting his respiratory therapist and going to pulmonary rehab for the last 3 weeks. He states that he started taking prednisone again and has been taking 2 pills per day. He states that he was unable to walk 10 feet to his bathroom on 08/13/19. He began coughing on 08/14/19 which was productive when he was getting dressed and was still becoming SOB very quickly when doing any type of physical exertion. His PE found that he has Diminished breath sounds throughout, marked breathing bilaterally and expiratory wheezing on the expiratory phase with tachypnea. His EKG taken at 0459 shows sinus tachycardia at a rate of 114 BPM P waves, QRS complex, and T waves are within normal limits, T waves and intervals are normal, no ischemic changes. His CXR shows infiltrates of both bases. He will be admitted to [facility] with a Dx of COPD exacerbation by Dr. Anderson, [facility]. - Diagnoses Provider Diagnoses: COPD (chronic obstructive pulmonary disease), Pneumonia - Physician Notifications Discussed Care of Patient With: Kevin Anderson Time Discussed With Above Provider: 06:53 Instructed by Provider To: Admit As Inpatient Discharge ED - Sign-Out/Discharge Documenting (check all that apply): Patient Departure - admitted - Discharge Plan Condition: Stable Disposition: ADMITTED TO [facility] - Billing Disposition and Condition Condition: STABLE Disposition: Admitted to [facility] - Attestation Statements Document Initiated by Han: Yes Documenting Scribe: Unruly Blackman Provider For Whom Han is Documenting (Include Credential): Shayan Alba MD Scribjay Attestation: Unruly Michel scribed for Shayan Alba MD on 08/18/19 at 1526. Scribe Documentation Reviewed: Yes Provider Attestation: The documentation as recorded by the Unruly elliott accurately reflects the service I personally performed and the decisions made by me, Shayan Alba MD Status of Scribe Document: Viewed
[2019-08-15 05:19] LABS: ABS Basophils 0.2 10^3/ul (0-0.2); ABS Lymphocytes 0.4 10^3/ul (1.0-4.8); ABS Monocytes 1.4 10^3/ul (0-0.8); ABS Neutrophils 17.6 10^3/ul (1.5-7.7); Hematocrit 46 % (42-52); Hemoglobin 15.1 g/dL (14.0-18.0); Lymphocyte % 1.8 %; Mean Corpuscular HGB Conc 33 g/dL (31-36); Mean Corpuscular Hemoglobin 29 pg (27-31); Mean Corpuscular Volume 87 fL (80-94); Mean Platelet Volume 9.3 fL (7.4-10.4); Platelet Count 161 10^3/uL (150-450); Red Blood Count 5.26 10^6 /uL (4.18-5.48); Red Cell Distribution Width 16 % (10-15); White Blood Count 19.5 10^3/uL (3.5-10.8)
[2019-08-15 05:37] LABS: Albumin 3.8 g/dL (3.2-5.2); Albumin/Globulin Ratio 1.4 (1-3); BUN/Creatinine Ratio 32.2 (8-20); Calcium 9.6 mg/dL (8.6-10.3); EGFR African American 100.9 (>60); EGFR Non-African American 83.4 (>60); Globulin 2.8 g/dL (2-4); Total Bilirubin 1.2 mg/dL (0.2-1.0); Total Protein 6.6 g/dL (6.4-8.9)
[2019-08-15 05:39] LABS: Troponin I 0.02 ng/mL (<0.04)
[2019-08-15] MEDS ORDERED: cefTRIAXone(*) 1 GM in NS 0.9% 50 ML* 50 ML IVPB ONE (06:37)
[2019-08-15] MEDS ORDERED: Azithromycin 500 mg/250 ml NS 500 MG/250 ML BAG IVPB ONE (06:37)
[2019-08-15] MEDS ORDERED: Acetaminophen TAB* 325 MG PO PRN (09:49)
[2019-08-15] MEDS ORDERED: Ondansetron INJ* 2 MG/ML VIAL IV PRN (09:49)
[2019-08-15] MEDS: Aspirin EC TAB* 81 MG TAB.EC PO SCH (11:55)
[2019-08-15] MEDS: Enoxaparin(*) 40 MG/0.4 ML SYR SUBCUT SCH (11:55)
[2019-08-15] MEDS: Tamsulosin CAP* 0.4 MG PO SCH (11:56)
[2019-08-15] MEDS: amLODIPine TAB* 5 MG PO SCH (11:56)
[2019-08-15] MEDS: Atenolol TAB* 25 MG PO SCH (11:56)
[2019-08-15] MEDS: Cyanocobalamin TAB* 500 MCG PO SCH (11:57)
[2019-08-15] MEDS: Albuterol 2.5 MG/3 ML NEB.SOL* (0.083%) INH SCH ×3 (12:05→20:05)
[2019-08-15] MEDS: Mometasone/Formoter 200/5 MDI INH SCH (12:05)
--- NOTE | 2019-08-15 12:35 | HP ---
CC: Dr. Maurice Jason * MEDICINE HISTORY AND PHYSICAL: DATE OF ADMISSION: 08/15/19 PRIMARY CARE PHYSICIAN: Dr. Maurice Jason PROVIDER: Dae Trejo NP ATTENDING PHYSICIAN: Dr. Bull Fox * (dictated by Dae Trejo NP) CHIEF COMPLAINT: Shortness of breath. HISTORY OF PRESENT ILLNESS: Mr. Schneider is an 84-year-old male with a past medical history significant for COPD and chronic hypoxic respiratory failure, on home O2 as well as hypertension, who presented to the hospital overnight with concern for shortness of breath. He reports that onset of symptoms had started on 08/13/19. He had difficulty ambulating to his bathroom and states that he took his medicine and this became better. However, the following day he began to cough more and continued with shortness of breath and felt that he would get further evaluation and came in late Saturday evening to the ER. During the course of our discussion, he becomes very dyspneic. He states that he has been fatiguing more easily and becoming more short of breath with daily activities including getting dressed and ambulation. He has felt better since arriving here in the ER and receiving treatments. He denies any fever or chills, cold or flu symptoms, body aches, chest pain, abdominal pain, nausea, vomiting, dysuria. He does report shortness of breath and wheezing and productive cough. He states he did receive his flu shot. He has been going to pulmonary rehab for the last 3 weeks. Per the ER notes, he is on prednisone, although we do not have a confirmed medication list at this time. Here in the ER, the patient had concern for an elevated white count of 19.5 as well as a chest x-ray, which showed concern for right middle lobe pneumonia and bilateral pleural effusions. Given these findings, Hospital Medicine was consulted for admission. PAST MEDICAL HISTORY: Significant for: 1. COPD. 2. Chronic hypoxic respiratory failure, on home O2 at 2 L. 3. Hypertension. 4. BPH. 5. Lazcano's palsy. 6. Skin cancer. HOME MEDICATION: Not confirmed but from the records and [facility], last updated in May 2019. He is on the followin. Meclizine 12.5 mg t.i.d. p.r.n. 2. Advair 500/50 one puff inhaled b.i.d. 3. Albuterol nebulizer 1 treatment t.i.d. p.r.n. 4. Cholecalciferol 1000 units daily. 5. Atenolol 12.5 mg daily. 6. Aspirin 81 mg daily. 7. Albuterol 2 puffs inhaled q.4 hours p.r.n. 8. Tamsulosin 0.4 mg daily. 9. Cyanocobalamin 1000 mcg daily. 10. Amlodipine 5 mg daily. 11. Melatonin 2.5 mg q.h.s. Nursing will confirm his medication list with the patient's daughter when she is able to go home and call in medications. ALLERGIES: Include EGGS and DAIRY. FAMILY HISTORY: He reports his mother from natural causes in her 90s. SOCIAL HISTORY: He is a former smoker, formerly smoking a pack a day for approximately 10 years. He quit over 30 years ago. He reports rare alcohol use. Denies any drug use. He is a retired [employer] employee. He lives at home with his daughter and his daughter, Tasha Schneider, is his history surrogate decision maker and healthcare proxy in the event of emergency. REVIEW OF SYSTEMS: A 14-point review of systems completed with Mr. Schneider and all those not mentioned above were negative. PHYSICAL EXAMINATION GENERAL: This is an [id number] male seen lying in ED stretcher. He is not in any acute distress, but he does become dyspneic, more tachypneic with conversation. VITAL SIGNS: Temperature 99.5, heart rate 104, respirations 30, blood pressure 128/57, O2 saturation 92% on 3 L nasal cannula. HEENT: Head is atraumatic and normocephalic. Pupils are equal, round, and reactive to light and accommodation. Extraocular movements are intact. Sclerae anicteric. Oral mucosa is slightly dry. Oropharynx without exudate or erythema. NECK: Supple with full range of motion, is nontender. No lymphadenopathy appreciated. No JVD noted. LUNGS: Diminished breath sounds throughout. Rate is tachypneic. Crackles noted in the right middle and lower lobes. Expiratory wheezing noted. CARDIAC: Normal S1, S2 heart sounds, regular rate and rhythm. No murmurs appreciated. Distal pulses 2+ and equal and radial posterior tibialis and dorsalis pedal pulses. ABDOMEN: Soft, nontender, nondistended with normoactive bowel sounds. MUSCULOSKELETAL: No clubbing or cyanosis noted. There is full range of motion in all 4 extremities. NEURO: He is alert and oriented x3. Speech is fluent. No focal deficits noted. SKIN: Limited assessment but appears grossly intact, it is warm and dry. DIAGNOSTIC STUDIES/LAB DATA: CBC: WBC 19.5, hemoglobin 15.1, hematocrit 46, platelet count 161. CMP: Sodium 139, potassium 4.0, chloride 103, carbon dioxide 28, BUN 28, creatinine 0.87, glucose 169, lactic acid 1.8, calcium 9.6. Total bilirubin 1.2, AST 9, ALT 10, alk phos 66, troponin 0.02, albumin 3.8. Chest x-ray as per above. EKG shows sinus tachycardia at a rate of 114 beats per minute. No ST or T-wave changes to indicate ischemia. Old medical records were reviewed. ASSESSMENT AND PLAN: This is an 84-year-old male who presents today with shortness of breath with concern for chronic obstructive pulmonary disease exacerbation and right middle lobe pneumonia and presence of pleural effusions. He will be admitted as an inpatient. Plan as follows: 1. Pneumonia. He will be treated for community-acquired pneumonia with azithromycin and ceftriaxone. He appears to be more comfortable than he was when he first came in, and he has already received his first dose of azithromycin and ceftriaxone here in the ER and these will be continued. He has also received 125 mg of Solu-Medrol, which is appropriate. Plan to start him on prednisone 60 mg tomorrow. We do need to confirm if he was taking prednisone at home and at what dose. I am unable to tell that through his [facility] records and [facility] pharmacy does not have any record of his medications as he usually gets his medications through the [facility]. Again, his daughter will call and confirm med list with the nursing staff. In the interim, we will continue with prednisone 60 mg and adjust this accordingly. He will likely need a longer taper. 2. Acute on chronic hypoxic respiratory failure. This is secondary to pneumonia and chronic obstructive pulmonary disease exacerbation. He is currently requiring 3 to 4 L, which is greater than his usual 2 L nasal cannula. We will continue to titrate him down as he tolerates and continue with supportive care measures. 3. Chronic obstructive pulmonary disease with exacerbation. As per above, we will treat him for the pneumonia as well as support him with steroid therapy and respiratory treatments. He appears to be on Advair at baseline, which we will continue. He does follow with Dr. Rod in the outpatient setting. 4. Hypertension, currently under good control. He has been on atenolol and Norvasc per his records, we will confirm these and continue his home medications as tolerated. 5. Benign prostatic hyperplasia. Continue tamsulosin. 6. FEN: He is ordered a heart-healthy diet. 7. DVT prophylaxis: He is ordered subcu Lovenox. 8. Code status: He is a full code. TIME SPENT: Approximately 60 minutes was spent on this admission, greater than half the time spent [id number] with the patient and family obtaining history and physical, performing the physical examination, and reviewing the plan of care. Plan of care was also discussed with my attending, Dr. Fox, who is in agreement. DAE TREJO NP [id number]/[facility] #: [id number] [place]
[2019-08-16] MEDS: Mometasone/Formoter 200/5 MDI INH SCH ×3 (02:38→20:52)
[2019-08-16] MEDS: cefTRIAXone(*) 1 GM in NS 0.9% 50 ML* 50 ML IVPB SCH (06:01)
[2019-08-16] MEDS: Azithromycin IV(*) 250 MG in NS 0.9% 250 ML* 250 ML IVPB SCH (06:01)
[2019-08-16 06:07] LABS: ABS Lymphocytes 0.4 10^3/ul (1.0-4.8); ABS Monocytes 1.1 10^3/ul (0-0.8); ABS Neutrophils 11.3 10^3/ul (1.5-7.7); Hematocrit 40 % (42-52); Hemoglobin 13.5 g/dL (14.0-18.0); Lymphocyte % 2.8 %; Mean Corpuscular HGB Conc 34 g/dL (31-36); Mean Corpuscular Hemoglobin 29 pg (27-31); Mean Corpuscular Volume 86 fL (80-94); Mean Platelet Volume 9.3 fL (7.4-10.4); Nucleated Red Blood Cells % 0.1; Platelet Count 158 10^3/uL (150-450); Red Blood Count 4.67 10^6 /uL (4.18-5.48); Red Cell Distribution Width 16 % (10-15); White Blood Count 12.8 10^3/uL (3.5-10.8)
[2019-08-16 06:27] LABS: BUN/Creatinine Ratio 46.6 (8-20); Calcium 9.3 mg/dL (8.6-10.3); EGFR African American 123.6 (>60); EGFR Non-African American 102.1 (>60); Potassium 3.8 mmol/L (3.5-5.0)
[2019-08-16] MEDS: Albuterol 2.5 MG/3 ML NEB.SOL* (0.083%) INH SCH ×6 (07:25→23:29)
[2019-08-16] MEDS: Enoxaparin(*) 40 MG/0.4 ML SYR SUBCUT SCH (09:59)
[2019-08-16] MEDS: Atenolol TAB* 25 MG PO SCH (10:00)
[2019-08-16] MEDS: Aspirin EC TAB* 81 MG TAB.EC PO SCH (10:00)
[2019-08-16] MEDS: Tamsulosin CAP* 0.4 MG PO SCH (10:00)
[2019-08-16] MEDS: amLODIPine TAB* 5 MG PO SCH (10:01)
[2019-08-16] MEDS: predniSONE TAB* 20 MG PO SCH (10:01)
[2019-08-16] MEDS: Cyanocobalamin TAB* 500 MCG PO SCH (10:01)
[2019-08-16] MEDS ORDERED: Benzocaine/Menthol LOZ* 1 LOZENGE PO PRN (15:09)
[2019-08-16] MEDS ORDERED: Iohexol 300* (CONTRAST) 10 ML SDV IV ONE (15:17)
--- NOTE | 2019-08-16 15:19 | PN ---
Subjective Date of Service: 08/16/19 Interval History: Reports feeling much better than yesterday. Reports that he thought he was not going to make it yesterday Objective Active Medications: Acetaminophen (Tylenol Tab*) 650 mg PO Q4H PRN PRN Reason: MILD PAIN or TEMP > 100.4 Albuterol (Ventolin 2.5 Mg/3 Ml Neb.Digna*) 2.5 mg INH [id number] AWAKE [facility] Last Admin: 08/16/19 14:20 Dose: 2.5 mg Amlodipine Besylate (Norvasc Tab*) 5 mg PO DAILY [facility] Last Admin: 08/16/19 10:01 Dose: 5 mg Aspirin (Aspirin Ec Tab*) 81 mg PO DAILY [facility] Last Admin: 08/16/19 10:00 Dose: 81 mg Atenolol (Tenormin Tab*) 12.5 mg PO DAILY [facility] Last Admin: 08/16/19 10:00 Dose: 12.5 mg Cyanocobalamin (Vitamin B12 Tab*) 1,000 mcg PO DAILY [facility] Last Admin: 08/16/19 10:01 Dose: 1,000 mcg Enoxaparin Sodium (Lovenox(*)) 40 mg SUBCUT Q24H [facility] Last Admin: 08/16/19 09:59 Dose: 40 mg Guaifenesin/Dextromethorphan (Robitussin Dm*) 5 ml PO Q6H PRN PRN Reason: COUGH Azithromycin 250 mg/ Sodium (Chloride) 250 mls @ 250 mls/hr IVPB Q24H [facility] Last Admin: 08/16/19 06:01 Dose: 250 mls/hr Ceftriaxone Sodium 1 gm/ (Sodium Chloride) 50 mls @ 100 mls/hr IVPB Q24H [facility] Last Admin: 08/16/19 06:01 Dose: 100 mls/hr Mometasone Furoate/Formoterol Fumar (Dulera 200/5 Mdi*) 2 puff INH BID [facility] Last Admin: 08/16/19 07:39 Dose: 2 puff Ondansetron HCl (Zofran Inj*) 4 mg IV Q6H PRN PRN Reason: NAUSEA/VOMITING Prednisone (Deltasone Tab*) 60 mg PO DAILY [facility] Last Admin: 08/16/19 10:01 Dose: 60 mg Tamsulosin HCl (Flomax Cap*) 0.4 mg PO DAILY [facility] Last Admin: 08/16/19 10:00 Dose: 0.4 mg Throat Lozenges (Chloraseptic Maikol*) 1 maikol PO Q6H PRN PRN Reason: SORE THROAT Vital Signs - 8 hr 08/16/19 08/16/19 08/16/19 07:14 07:29 07:39 Temperature 97.3 F Pulse Rate 93 90 Respiratory 20 20 18 Rate Blood Pressure 143/54 (mmHg) O2 Sat by Pulse 93 83 Oximetry 08/16/19 08/16/19 08/16/19 10:45 11:00 14:20 Temperature 97.3 F Pulse Rate 101 105 74 Respiratory 22 18 17 Rate Blood Pressure 137/57 (mmHg) O2 Sat by Pulse 96 93 95 Oximetry Oxygen Devices in Use Now: Nasal Cannula Eyes: No Scleral Icterus Neck: NL Appearance and Movements; NL JVP Respiratory: Symmetrical Chest Expansion and Respiratory Effort, - - bronchial breath sounds, rhonchi bilaterally Cardiovascular: NL Sounds; No Murmurs; No JVD Abdominal: NL Sounds; No Tenderness; No Distention Extremities: No Edema, - Neurological: Alert and Oriented x 3 Result Diagrams: 08/16/19 05:53 08/16/19 05:53 Microbiology and Other Data: Microbiology 08/15/19 05:08 Aerobic Blood Culture - Preliminary Blood Venous No Growth Day 1 Anaerobic Blood Culture - Preliminary No Growth Day 1 08/15/19 05:08 Aerobic Blood Culture - Preliminary Blood Venous No Growth Day 1 Anaerobic Blood Culture - Preliminary No Growth Day 1 08/15/19 22:03 Legionella Urinary Antigen - Final Urine Negative Legionella Antigen Streptococcus pneumoniae Ag Screen - Final Negative S. pneumo Antigen Assess/Plan/Problems-Billing Assessment: - Patient Problems (1) Pneumonia Current Visit: Yes Status: Acute Code(s): J18.9 - PNEUMONIA, UNSPECIFIED ORGANISM SNOMED Code(s): 956296752 Comment: RML pneumonia leukocytosis improving symptoms improving multiple pneumonias this year per pt will get CT chest with contrast to r/o malignancy on home oxygen (2) COPD exacerbation Current Visit: Yes Status: Acute Code(s): J44.1 - CHRONIC OBSTRUCTIVE PULMONARY DISEASE W (ACUTE) EXACERBATION SNOMED Code(s): 356930256 Comment: Recd IV solumedrol yesterday Prednisone 60 mg Nebs PRN o2 (3) Acute and chronic respiratory failure Current Visit: Yes Status: Acute Code(s): J96.20 - ACUTE AND CHR RESP FAILURE, UNSP W HYPOXIA OR HYPERCAPNIA SNOMED Code(s): 75425318 Comment: on 2l o2 chronically worsened oxygen requirement sec pneumonia and copd exacerbation (4) Pulmonary nodule Current Visit: Yes Status: Acute Code(s): R91.1 - SOLITARY PULMONARY NODULE SNOMED Code(s): 914542145 Comment: h/o nodules ct chest with contrast to evaluate r/o mass
[2019-08-17 05:06] LABS: ABS Lymphocytes 0.5 10^3/ul (1.0-4.8); ABS Monocytes 1.1 10^3/ul (0-0.8); ABS Neutrophils 10.5 10^3/ul (1.5-7.7); Hematocrit 38 % (42-52); Hemoglobin 12.6 g/dL (14.0-18.0); Lymphocyte % 4.1 %; Mean Corpuscular HGB Conc 33 g/dL (31-36); Mean Corpuscular Hemoglobin 29 pg (27-31); Mean Corpuscular Volume 86 fL (80-94); Mean Platelet Volume 9.8 fL (7.4-10.4); Platelet Count 160 10^3/uL (150-450); Red Blood Count 4.45 10^6 /uL (4.18-5.48); Red Cell Distribution Width 16 % (10-15); White Blood Count 12.1 10^3/uL (3.5-10.8)
[2019-08-17 05:18] LABS: BUN/Creatinine Ratio 43.1 (8-20); EGFR African American 141.3 (>60); EGFR Non-African American 116.8 (>60)
[2019-08-17] MEDS: Albuterol 2.5 MG/3 ML NEB.SOL* (0.083%) INH SCH ×5 (05:47→19:49)
[2019-08-17] MEDS: cefTRIAXone(*) 1 GM in NS 0.9% 50 ML* 50 ML IVPB SCH (06:09)
[2019-08-17] MEDS: Azithromycin IV(*) 250 MG in NS 0.9% 250 ML* 250 ML IVPB SCH (06:09)
[2019-08-17] MEDS: Mometasone/Formoter 200/5 MDI INH SCH ×2 (09:02→19:49)
[2019-08-17] MEDS: amLODIPine TAB* 5 MG PO SCH (09:44)
[2019-08-17] MEDS: Tamsulosin CAP* 0.4 MG PO SCH (09:44)
[2019-08-17] MEDS: predniSONE TAB* 20 MG PO SCH (09:44)
[2019-08-17] MEDS: Cyanocobalamin TAB* 500 MCG PO SCH (09:44)
[2019-08-17] MEDS: Aspirin EC TAB* 81 MG TAB.EC PO SCH (09:44)
[2019-08-17] MEDS: Atenolol TAB* 25 MG PO SCH (09:45)
[2019-08-17] MEDS: Enoxaparin(*) 40 MG/0.4 ML SYR SUBCUT SCH (09:47)
--- NOTE | 2019-08-17 15:19 | PN ---
Subjective Date of Service: 08/17/19 Interval History: Still feels fatigued, SOB, +coughbut feels SOB is better since admission More SOB lying flat and better sitting up 4L O2 NC today Objective Active Medications: Acetaminophen (Tylenol Tab*) 650 mg PO Q4H PRN PRN Reason: MILD PAIN or TEMP > 100.4 Albuterol (Ventolin 2.5 Mg/3 Ml Neb.Digna*) 2.5 mg INH [id number] AWAKE [facility] Last Admin: 08/17/19 11:57 Dose: 2.5 mg Amlodipine Besylate (Norvasc Tab*) 5 mg PO DAILY [facility] Last Admin: 08/17/19 09:44 Dose: 5 mg Aspirin (Aspirin Ec Tab*) 81 mg PO DAILY [facility] Last Admin: 08/17/19 09:44 Dose: 81 mg Atenolol (Tenormin Tab*) 12.5 mg PO DAILY [facility] Last Admin: 08/17/19 09:45 Dose: 12.5 mg Cyanocobalamin (Vitamin B12 Tab*) 1,000 mcg PO DAILY [facility] Last Admin: 08/17/19 09:44 Dose: 1,000 mcg Enoxaparin Sodium (Lovenox(*)) 40 mg SUBCUT Q24H [facility] Last Admin: 08/17/19 09:47 Dose: 40 mg Guaifenesin/Dextromethorphan (Robitussin Dm*) 5 ml PO Q6H PRN PRN Reason: COUGH Azithromycin 250 mg/ Sodium (Chloride) 250 mls @ 250 mls/hr IVPB Q24H [facility] Last Admin: 08/17/19 06:09 Dose: 250 mls/hr Ceftriaxone Sodium 1 gm/ (Sodium Chloride) 50 mls @ 100 mls/hr IVPB Q24H [facility] Last Admin: 08/17/19 06:09 Dose: 100 mls/hr Mometasone Furoate/Formoterol Fumar (Dulera 200/5 Mdi*) 2 puff INH BID [facility] Last Admin: 08/17/19 09:02 Dose: 2 puff Ondansetron HCl (Zofran Inj*) 4 mg IV Q6H PRN PRN Reason: NAUSEA/VOMITING Prednisone (Deltasone Tab*) 60 mg PO DAILY [facility] Last Admin: 08/17/19 09:44 Dose: 60 mg Tamsulosin HCl (Flomax Cap*) 0.4 mg PO DAILY [facility] Last Admin: 08/17/19 09:44 Dose: 0.4 mg Throat Lozenges (Chloraseptic Maikol*) 1 maikol PO Q6H PRN PRN Reason: SORE THROAT Last Admin: 08/16/19 16:54 Dose: 1 maikol Vital Signs - 8 hr 08/17/19 08/17/19 08/17/19 07:27 08:00 09:04 Temperature 97 F Pulse Rate 81 113 Respiratory 22 22 24 Rate Blood Pressure 152/60 (mmHg) O2 Sat by Pulse 94 89 Oximetry 08/17/19 08/17/19 11:00 12:00 Temperature 97.5 F Pulse Rate 81 80 Respiratory 22 18 Rate Blood Pressure 132/63 (mmHg) O2 Sat by Pulse 93 95 Oximetry Oxygen Devices in Use Now: Nasal Cannula - 4L NC Appearance: chronically ill, NAD, coughing Eyes: No Scleral Icterus, PERRLA Ears/Nose/Mouth/Throat: NL Teeth, Lips, Gums, Clear Oropharnyx Neck: NL Appearance and Movements; NL JVP, Trachea Midline Respiratory: Symmetrical Chest Expansion and Respiratory Effort, - - decreased throughout, fine rales greates in LLL Cardiovascular: RRR, - - distant heart sounds Extremities: No Edema Neurological: Alert and Oriented x 3 Result Diagrams: 08/17/19 04:41 08/17/19 04:41 Microbiology and Other Data: Microbiology 08/15/19 05:08 Aerobic Blood Culture - Preliminary Blood Venous No Growth Day 1 Anaerobic Blood Culture - Preliminary No Growth Day 1 08/15/19 05:08 Aerobic Blood Culture - Preliminary Blood Venous No Growth Day 1 Anaerobic Blood Culture - Preliminary No Growth Day 1 08/15/19 22:03 Legionella Urinary Antigen - Final Urine Negative Legionella Antigen Streptococcus pneumoniae Ag Screen - Final Negative S. pneumo Antigen Assess/Plan/Problems-Billing Assessment: 84 yo M advanced emphysema, chronic resp failure pw acute on chronic hypoxic resp failure - Patient Problems (1) Acute and chronic respiratory failure Comment: on 2l o2 chronically worsened oxygen requirement on presentation thought in setting of PNA although no e/o PNA on CT chest There is concern for ILD from CT as well as advanced emphysema Suspect COPD exacerbation in setting of bronchitis Steroids PO (2) COPD exacerbation Comment: Prednisone 60 mg dulera, added spiriva Nebs PRN Was on steorid taper not on chronic steroids per patient (3) Pneumonia Comment: no e/o PNA on CT however, given leukocytosis and advanced pulmonary dz will treat for complete 5 days with CTX/azithro (4) Pulmonary nodule Comment: h/o nodules - largely unchanged on repeat CT
[2019-08-18] MEDS: Albuterol 2.5 MG/3 ML NEB.SOL* (0.083%) INH SCH ×4 (02:09→19:52)
[2019-08-18] MEDS: cefTRIAXone(*) 1 GM in NS 0.9% 50 ML* 50 ML IVPB SCH (06:40)
[2019-08-18] MEDS: SPIRIVA Respimat* (tiotropium) 2.5 mcg/inh Inhaler INH SCH (07:19)
[2019-08-18] MEDS: Mometasone/Formoter 200/5 MDI INH SCH ×2 (07:20→19:52)
[2019-08-18] MEDS: Cyanocobalamin TAB* 500 MCG PO SCH (08:26)
[2019-08-18] MEDS: Azithromycin IV(*) 250 MG in NS 0.9% 250 ML* 250 ML IVPB SCH (08:26)
[2019-08-18] MEDS: amLODIPine TAB* 5 MG PO SCH (08:27)
[2019-08-18] MEDS: Atenolol TAB* 25 MG PO SCH (08:27)
[2019-08-18] MEDS: Tamsulosin CAP* 0.4 MG PO SCH (08:27)
[2019-08-18] MEDS: predniSONE TAB* 20 MG PO SCH (08:27)
[2019-08-18] MEDS: Aspirin EC TAB* 81 MG TAB.EC PO SCH (08:27)
[2019-08-18] MEDS: Enoxaparin(*) 40 MG/0.4 ML SYR SUBCUT SCH (09:19)
--- NOTE | 2019-08-18 14:51 | PN ---
Subjective Date of Service: 08/18/19 Interval History: patient seen remains dyspneic with short sentences. remain on oxygen via NC. no fever or chills. very anxious and having difficulty sleeping concerning about his breathing Past Medical History: Unchanged from Admission Objective Active Medications: Acetaminophen (Tylenol Tab*) 650 mg PO Q4H PRN PRN Reason: MILD PAIN or TEMP > 100.4 Albuterol (Ventolin 2.5 Mg/3 Ml Neb.Digna*) 2.5 mg INH [id number] AWAKE [facility] Last Admin: 08/18/19 13:37 Dose: 2.5 mg Amlodipine Besylate (Norvasc Tab*) 5 mg PO DAILY [facility] Last Admin: 08/18/19 08:27 Dose: 5 mg Aspirin (Aspirin Ec Tab*) 81 mg PO DAILY [facility] Last Admin: 08/18/19 08:27 Dose: 81 mg Atenolol (Tenormin Tab*) 12.5 mg PO DAILY [facility] Last Admin: 08/18/19 08:27 Dose: 12.5 mg Cyanocobalamin (Vitamin B12 Tab*) 1,000 mcg PO DAILY [facility] Last Admin: 08/18/19 08:26 Dose: 1,000 mcg Enoxaparin Sodium (Lovenox(*)) 40 mg SUBCUT Q24H [facility] Last Admin: 08/18/19 09:19 Dose: 40 mg Guaifenesin/Dextromethorphan (Robitussin Dm*) 5 ml PO Q6H PRN PRN Reason: COUGH Azithromycin 250 mg/ Sodium (Chloride) 250 mls @ 250 mls/hr IVPB Q24H [facility] Last Admin: 08/18/19 08:26 Dose: 250 mls/hr Ceftriaxone Sodium 1 gm/ (Sodium Chloride) 50 mls @ 100 mls/hr IVPB Q24H [facility] Last Admin: 08/18/19 06:40 Dose: 100 mls/hr Mometasone Furoate/Formoterol Fumar (Dulera 200/5 Mdi*) 2 puff INH BID [facility] Last Admin: 08/18/19 07:20 Dose: 2 puff Ondansetron HCl (Zofran Inj*) 4 mg IV Q6H PRN PRN Reason: NAUSEA/VOMITING Prednisone (Deltasone Tab*) 60 mg PO DAILY [facility] Last Admin: 08/18/19 08:27 Dose: 60 mg Tamsulosin HCl (Flomax Cap*) 0.4 mg PO DAILY [facility] Last Admin: 08/18/19 08:27 Dose: 0.4 mg Throat Lozenges (Chloraseptic Maikol*) 1 maikol PO Q6H PRN PRN Reason: SORE THROAT Last Admin: 08/16/19 16:54 Dose: 1 maikol Tiotropium [place] (Spiriva Respimat 2.5 Mcg) 2 puff INH DAILY [facility] Last Admin: 08/18/19 07:19 Dose: 2 puff Vital Signs - 8 hr 08/18/19 08/18/19 08/18/19 07:15 07:20 07:53 Temperature 99.6 F Pulse Rate 108 115 Respiratory 24 28 20 Rate Blood Pressure 142/71 (mmHg) O2 Sat by Pulse 94 93 Oximetry 08/18/19 08/18/19 08/18/19 10:04 11:15 13:38 Temperature 97.6 F 97.3 F Pulse Rate 80 116 80 Respiratory 20 22 20 Rate Blood Pressure 127/62 136/59 (mmHg) O2 Sat by Pulse 97 96 95 Oximetry Oxygen Devices in Use Now: Nasal Cannula Appearance: awake ,anxious. alert pleasant. no acute distress but he gets very dyspneic with short sentences Eyes: No Scleral Icterus, - - EOMI Ears/Nose/Mouth/Throat: NL Teeth, Lips, Gums, Mucous Membranes Moist Neck: NL Appearance and Movements; NL JVP, Trachea Midline Respiratory: - - diffuse wheezing and transmitted upper airway breath sounds. Cardiovascular: No Edema Abdominal: NL Sounds; No Tenderness; No Distention Skin: No Rash or Ulcers Neurological: Alert and Oriented x 3 Result Diagrams: 08/17/19 04:41 08/17/19 04:41 Microbiology and Other Data: Microbiology 08/15/19 05:08 Aerobic Blood Culture - Preliminary Blood Venous No Growth Day 1 Anaerobic Blood Culture - Preliminary No Growth Day 1 08/15/19 05:08 Aerobic Blood Culture - Preliminary Blood Venous No Growth Day 1 Anaerobic Blood Culture - Preliminary No Growth Day 1 08/15/19 22:03 Legionella Urinary Antigen - Final Urine Negative Legionella Antigen Streptococcus pneumoniae Ag Screen - Final Negative S. pneumo Antigen Assess/Plan/Problems-Billing Assessment: 84 yo M advanced emphysema, chronic resp failure pw acute on chronic hypoxic resp failure - Patient Problems (1) Acute and chronic respiratory failure Current Visit: Yes Status: Acute Code(s): J96.20 - ACUTE AND CHR RESP FAILURE, UNSP W HYPOXIA OR HYPERCAPNIA SNOMED Code(s): 80362349 Comment: - On 2L o2 chronically, now requiring 4 liters. - Covered empirically for bronchial pneumonaie as there is no e/o PNA on CT chest. Her CT shows evidence of ILD from CT as well as advanced emphysema. continue ceftriaxone and zithromax - I agree with high dose of steroid PO. will need slow taper - Will add low dose xanax 0.25 mg at HS prn anxiety (2) COPD exacerbation Current Visit: Yes Status: Acute Code(s): J44.1 - CHRONIC OBSTRUCTIVE PULMONARY DISEASE W (ACUTE) EXACERBATION SNOMED Code(s): 561277482 Comment: - On 2L o2 chronically, now requiring 4 liters. - Covered empirically for bronchial pneumonaie as there is no e/o PNA on CT chest. Her CT shows evidence of ILD from CT as well as advanced emphysema. continue ceftriaxone and zithromax - I agree with high dose of steroid PO. will need slow taper - Will add low dose xanax 0.25 mg at HS prn anxiety (3) BPH (benign prostatic hyperplasia) Current Visit: No Status: Acute Code(s): N40.0 - BENIGN PROSTATIC HYPERPLASIA WITHOUT LOWER URINRY TRACT SYMP SNOMED Code(s): 889060200 Comment: -Continue Tamsulosin (4) Hypertension Current Visit: No Status: Chronic Code(s): I10 - ESSENTIAL (PRIMARY) HYPERTENSION SNOMED Code(s): 84744980 Comment: -Well controlled. Continue Amlodipine and Atenolol (5) DVT prophylaxis Current Visit: No Status: Acute Code(s): ICJ6292 - SNOMED Code(s): 308867343 Comment: [facility]
[2019-08-19] MEDS: Albuterol 2.5 MG/3 ML NEB.SOL* (0.083%) INH SCH ×4 (01:25→22:11)
[2019-08-19] MEDS: cefTRIAXone(*) 1 GM in NS 0.9% 50 ML* 50 ML IVPB SCH (06:56)
[2019-08-19] MEDS: Azithromycin IV(*) 250 MG in NS 0.9% 250 ML* 250 ML IVPB SCH (07:54)
[2019-08-19] MEDS: SPIRIVA Respimat* (tiotropium) 2.5 mcg/inh Inhaler INH SCH (08:06)
[2019-08-19] MEDS: Mometasone/Formoter 200/5 MDI INH SCH ×2 (08:06→22:12)
[2019-08-19] MEDS: Tamsulosin CAP* 0.4 MG PO SCH (09:41)
[2019-08-19] MEDS: predniSONE TAB* 20 MG PO SCH (09:41)
[2019-08-19] MEDS: Cyanocobalamin TAB* 500 MCG PO SCH (09:42)
[2019-08-19] MEDS: Aspirin EC TAB* 81 MG TAB.EC PO SCH (09:42)
[2019-08-19] MEDS: amLODIPine TAB* 5 MG PO SCH (09:42)
[2019-08-19] MEDS: Atenolol TAB* 25 MG PO SCH (09:42)
[2019-08-19] MEDS: Enoxaparin(*) 40 MG/0.4 ML SYR SUBCUT SCH (09:43)
--- NOTE | 2019-08-19 15:05 | PN ---
Subjective Date of Service: 08/19/19 Interval History: Patient seen still complaining of increase SOB and cough, despite high dose of prednisone, and Abx. Will try to place him on Daliresp if available. no fever no chills. scheduled to completed his zithromax today Past Medical History: Unchanged from Admission Objective Active Medications: Acetaminophen (Tylenol Tab*) 650 mg PO Q4H PRN PRN Reason: MILD PAIN or TEMP > 100.4 Albuterol (Ventolin 2.5 Mg/3 Ml Neb.Digna*) 2.5 mg INH [id number] AWAKE [facility] Last Admin: 08/19/19 14:13 Dose: 2.5 mg Amlodipine Besylate (Norvasc Tab*) 5 mg PO DAILY [facility] Last Admin: 08/19/19 09:42 Dose: 5 mg Aspirin (Aspirin Ec Tab*) 81 mg PO DAILY [facility] Last Admin: 08/19/19 09:42 Dose: 81 mg Atenolol (Tenormin Tab*) 12.5 mg PO DAILY [facility] Last Admin: 08/19/19 09:42 Dose: 12.5 mg Cyanocobalamin (Vitamin B12 Tab*) 1,000 mcg PO DAILY [facility] Last Admin: 08/19/19 09:42 Dose: 1,000 mcg Enoxaparin Sodium (Lovenox(*)) 40 mg SUBCUT Q24H [facility] Last Admin: 08/19/19 09:43 Dose: 40 mg Guaifenesin/Dextromethorphan (Robitussin Dm*) 5 ml PO Q6H PRN PRN Reason: COUGH Ceftriaxone Sodium 1 gm/ (Sodium Chloride) 50 mls @ 100 mls/hr IVPB Q24H [facility] Last Admin: 08/19/19 06:56 Dose: 100 mls/hr Mometasone Furoate/Formoterol Fumar (Dulera 200/5 Mdi*) 2 puff INH BID [facility] Last Admin: 08/19/19 08:06 Dose: 2 puff Ondansetron HCl (Zofran Inj*) 4 mg IV Q6H PRN PRN Reason: NAUSEA/VOMITING Prednisone (Deltasone Tab*) 60 mg PO DAILY [facility] Last Admin: 08/19/19 09:41 Dose: 60 mg Roflumilast (Daliresp (Nf)) 500 mcg PO DAILY [facility] Tamsulosin HCl (Flomax Cap*) 0.4 mg PO DAILY [facility] Last Admin: 08/19/19 09:41 Dose: 0.4 mg Throat Lozenges (Chloraseptic Maikol*) 1 maikol PO Q6H PRN PRN Reason: SORE THROAT Last Admin: 08/16/19 16:54 Dose: 1 maikol Tiotropium [place] (Spiriva Respimat 2.5 Mcg) 2 puff INH DAILY [facility] Last Admin: 08/19/19 08:06 Dose: 2 puff Vital Signs - 8 hr 08/19/19 08/19/19 08/19/19 07:49 08:00 08:07 Temperature 97.9 F Pulse Rate 86 88 Respiratory 22 18 20 Rate Blood Pressure 137/70 (mmHg) O2 Sat by Pulse 94 95 Oximetry 08/19/19 08/19/19 08/19/19 10:53 11:15 14:15 Temperature 97.7 F 98.3 F Pulse Rate 101 75 90 Respiratory 12 18 20 Rate Blood Pressure 144/67 138/64 (mmHg) O2 Sat by Pulse 93 94 93 Oximetry Oxygen Devices in Use Now: Nasal Cannula Appearance: awake, alert no distress. audible wheezing Eyes: No Scleral Icterus Ears/Nose/Mouth/Throat: NL Teeth, Lips, Gums, Mucous Membranes Moist Neck: NL Appearance and Movements; NL JVP Respiratory: Symmetrical Chest Expansion and Respiratory Effort, - - wheezing. congested. transmitted upper airway breath sounds Cardiovascular: NL Sounds; No Murmurs; No JVD, - - tachycardic Abdominal: NL Sounds; No Tenderness; No Distention Extremities: No Edema, - - clubbing Neurological: Alert and Oriented x 3 Result Diagrams: 08/17/19 04:41 08/17/19 04:41 Microbiology and Other Data: Microbiology 08/15/19 05:08 Aerobic Blood Culture - Preliminary Blood Venous No Growth Day 1 Anaerobic Blood Culture - Preliminary No Growth Day 1 08/15/19 05:08 Aerobic Blood Culture - Preliminary Blood Venous No Growth Day 1 Anaerobic Blood Culture - Preliminary No Growth Day 1 08/15/19 22:03 Legionella Urinary Antigen - Final Urine Negative Legionella Antigen Streptococcus pneumoniae Ag Screen - Final Negative S. pneumo Antigen Assess/Plan/Problems-Billing Assessment: 84 yo M advanced emphysema, chronic resp failure pw acute on chronic hypoxic resp failure - Patient Problems (1) Acute and chronic respiratory failure Current Visit: Yes Status: Acute Code(s): J96.20 - ACUTE AND CHR RESP FAILURE, UNSP W HYPOXIA OR HYPERCAPNIA SNOMED Code(s): 87727116 Comment: - On 2L o2 chronically, now requiring 4 liters. - Covered empirically for bronchial pneumonaie as there is no e/o PNA on CT chest. His CT shows evidence of ILD from CT as well as advanced emphysema. continue ceftriaxone day # 5, and zithromax Day#5 - I agree with high dose of steroid PO. will need slow taper - Will add low dose xanax 0.25 mg at HS prn anxiety - I did request to approve daliresp 500 mcg daily. trial to see if it improves symptomatically (2) COPD exacerbation Current Visit: Yes Status: Acute Code(s): J44.1 - CHRONIC OBSTRUCTIVE PULMONARY DISEASE W (ACUTE) EXACERBATION SNOMED Code(s): 673443539 Comment: - On 2L o2 chronically, now requiring 4 liters. - Covered empirically for bronchial pneumonaie as there is no e/o PNA on CT chest. His CT shows evidence of ILD from CT as well as advanced emphysema. continue ceftriaxone day # 5 and zithromax day # 5 - I agree with high dose of steroid PO. will need slow taper - Will add low dose xanax 0.25 mg at HS prn anxiety - I did request to approve daliresp 500 mcg daily. trial to see if it improves symptomatically (3) BPH (benign prostatic hyperplasia) Current Visit: No Status: Acute Code(s): N40.0 - BENIGN PROSTATIC HYPERPLASIA WITHOUT LOWER URINRY TRACT SYMP SNOMED Code(s): 567374863 Comment: -Continue Tamsulosin (4) Hypertension Current Visit: No Status: Chronic Code(s): I10 - ESSENTIAL (PRIMARY) HYPERTENSION SNOMED Code(s): 95172856 Comment: -Well controlled. Continue Amlodipine and Atenolol (5) DVT prophylaxis Current Visit: No Status: Acute Code(s): PDX5560 - SNOMED Code(s): 871489983 Comment: [facility]
[2019-08-19] MEDS: GuaiFENesin DM 100 mg/10 mg in 5 ML UDC PO PRN ×2 (16:12→22:20)
[2019-08-19] MEDS: ROFLUMILAST 500 MCG PO SCH (16:12)
[2019-08-20] MEDS: Albuterol 2.5 MG/3 ML NEB.SOL* (0.083%) INH SCH ×4 (07:18→20:10)
[2019-08-20] MEDS: Mometasone/Formoter 200/5 MDI INH SCH ×2 (07:49→20:20)
[2019-08-20] MEDS: SPIRIVA Respimat* (tiotropium) 2.5 mcg/inh Inhaler INH SCH (07:49)
[2019-08-20] MEDS: cefTRIAXone(*) 1 GM in NS 0.9% 50 ML* 50 ML IVPB SCH (07:58)
[2019-08-20] MEDS: ROFLUMILAST 500 MCG PO SCH (10:12)
[2019-08-20] MEDS: amLODIPine TAB* 5 MG PO SCH (10:13)
[2019-08-20] MEDS: Tamsulosin CAP* 0.4 MG PO SCH (10:13)
[2019-08-20] MEDS: Atenolol TAB* 25 MG PO SCH (10:13)
[2019-08-20] MEDS: Aspirin EC TAB* 81 MG TAB.EC PO SCH (10:13)
[2019-08-20] MEDS: Enoxaparin(*) 40 MG/0.4 ML SYR SUBCUT SCH (10:13)
[2019-08-20] MEDS: predniSONE TAB* 20 MG PO SCH (10:13)
[2019-08-20] MEDS: Cyanocobalamin TAB* 500 MCG PO SCH (10:14)
--- NOTE | 2019-08-20 16:53 | PN ---
Subjective Date of Service: 08/20/19 Interval History: I did meet with patient and family at bedside. I explained in details to them his COPD and severity. I did explain that it is very likely that his COPD will continue to have more and more frequent exacerbations. And his time outside the hospital may become shorter and shorter. I offered to have them speak to palliative care but at this time they agreed to discuss it and will make decision after meeting with the palliative care. I am not able to find his last PFT but will need to get his last PFT Past Medical History: Unchanged from Admission Objective Active Medications: Acetaminophen (Tylenol Tab*) 650 mg PO Q4H PRN PRN Reason: MILD PAIN or TEMP > 100.4 Albuterol (Ventolin 2.5 Mg/3 Ml Neb.Digna*) 2.5 mg INH [id number] AWAKE [facility] Last Admin: 08/20/19 13:45 Dose: 2.5 mg Amlodipine Besylate (Norvasc Tab*) 5 mg PO DAILY [facility] Last Admin: 08/20/19 10:13 Dose: 5 mg Aspirin (Aspirin Ec Tab*) 81 mg PO DAILY [facility] Last Admin: 08/20/19 10:13 Dose: 81 mg Atenolol (Tenormin Tab*) 12.5 mg PO DAILY [facility] Last Admin: 08/20/19 10:13 Dose: 12.5 mg Cyanocobalamin (Vitamin B12 Tab*) 1,000 mcg PO DAILY [facility] Last Admin: 08/20/19 10:14 Dose: 1,000 mcg Enoxaparin Sodium (Lovenox(*)) 40 mg SUBCUT Q24H [facility] Last Admin: 08/20/19 10:13 Dose: 40 mg Guaifenesin/Dextromethorphan (Robitussin Dm*) 5 ml PO Q6H PRN PRN Reason: COUGH Last Admin: 08/19/19 22:20 Dose: 5 ml Ceftriaxone Sodium 1 gm/ (Sodium Chloride) 50 mls @ 100 mls/hr IVPB Q24H [facility] Last Admin: 08/20/19 07:58 Dose: 100 mls/hr Mometasone Furoate/Formoterol Fumar (Dulera 200/5 Mdi*) 2 puff INH BID [facility] Last Admin: 08/20/19 07:49 Dose: 2 puff Ondansetron HCl (Zofran Inj*) 4 mg IV Q6H PRN PRN Reason: NAUSEA/VOMITING Prednisone (Deltasone Tab*) 50 mg PO DAILY [facility] Roflumilast (Daliresp (Nf)) 500 mcg PO DAILY [facility] Stop: 08/21/19 09:01 Last Admin: 08/20/19 10:12 Dose: 500 mcg Tamsulosin HCl (Flomax Cap*) 0.4 mg PO DAILY [facility] Last Admin: 08/20/19 10:13 Dose: 0.4 mg Throat Lozenges (Chloraseptic Maikol*) 1 maikol PO Q6H PRN PRN Reason: SORE THROAT Last Admin: 08/16/19 16:54 Dose: 1 maikol Tiotropium [place] (Spiriva Respimat 2.5 Mcg) 2 puff INH DAILY [facility] Last Admin: 08/20/19 07:49 Dose: 2 puff Vital Signs - 8 hr 08/20/19 08/20/19 11:44 13:46 Temperature 98 F Pulse Rate 78 78 Respiratory 16 18 Rate Blood Pressure 104/73 (mmHg) O2 Sat by Pulse 95 99 Oximetry Oxygen Devices in Use Now: Nasal Cannula Appearance: awake, alert. no distress but gets very dyspneic with minimal exertions Eyes: No Scleral Icterus, - - EOMI Ears/Nose/Mouth/Throat: Clear Oropharnyx, Mucous Membranes Moist Neck: NL Appearance and Movements; NL JVP, Trachea Midline Respiratory: Symmetrical Chest Expansion and Respiratory Effort, - - course rhonchi, Cardiovascular: NL Sounds; No Murmurs; No JVD, No Edema Abdominal: NL Sounds; No Tenderness; No Distention Neurological: Alert and Oriented x 3 Result Diagrams: 08/17/19 04:41 08/17/19 04:41 Microbiology and Other Data: Microbiology 08/15/19 05:08 Aerobic Blood Culture - Preliminary Blood Venous No Growth Day 1 Anaerobic Blood Culture - Preliminary No Growth Day 1 08/15/19 05:08 Aerobic Blood Culture - Preliminary Blood Venous No Growth Day 1 Anaerobic Blood Culture - Preliminary No Growth Day 1 08/15/19 22:03 Legionella Urinary Antigen - Final Urine Negative Legionella Antigen Streptococcus pneumoniae Ag Screen - Final Negative S. pneumo Antigen Assess/Plan/Problems-Billing Assessment: 84 yo M advanced emphysema, chronic resp failure pw acute on chronic hypoxic resp failure - Patient Problems (1) Acute and chronic respiratory failure Current Visit: Yes Status: Acute Code(s): J96.20 - ACUTE AND CHR RESP FAILURE, UNSP W HYPOXIA OR HYPERCAPNIA SNOMED Code(s): 89893286 Comment: - On 2L o2 chronically, was requiring 4 liters will titrate down to home setting if able to tolerate 2 liters. - Covered empirically for bronchial pneumonaie as there is no e/o PNA on CT chest. His CT shows evidence of ILD from CT as well as advanced emphysema. continue ceftriaxone day # 6, and zithromax Day#5 (done) - I agree with high dose of steroid PO. will need slow taper starting 50 mg tomorrow - added low dose xanax 0.25 mg at HS prn anxiety - I did started him on daliresp 500 mcg daily. (2) COPD exacerbation Current Visit: Yes Status: Acute Code(s): J44.1 - CHRONIC OBSTRUCTIVE PULMONARY DISEASE W (ACUTE) EXACERBATION SNOMED Code(s): 746339719 Comment: - On 2L o2 chronically, was requiring 4 liters will titrate down to home setting if able to tolerate 2 liters. - Covered empirically for bronchial pneumonaie as there is no e/o PNA on CT chest. His CT shows evidence of ILD from CT as well as advanced emphysema. continue ceftriaxone day # 6, and zithromax Day#5 (done) - I agree with high dose of steroid PO. will need slow taper starting 50 mg tomorrow - added low dose xanax 0.25 mg at HS prn anxiety - I did started him on daliresp 500 mcg daily. (3) BPH (benign prostatic hyperplasia) Current Visit: No Status: Acute Code(s): N40.0 - BENIGN PROSTATIC HYPERPLASIA WITHOUT LOWER URINRY TRACT SYMP SNOMED Code(s): 109350457 Comment: -Continue Tamsulosin (4) Hypertension Current Visit: No Status: Chronic Code(s): I10 - ESSENTIAL (PRIMARY) HYPERTENSION SNOMED Code(s): 35168366 Comment: -Well controlled. Continue Amlodipine and Atenolol (5) DVT prophylaxis Current Visit: No Status: Acute Code(s): ZRJ2496 - SNOMED Code(s): 249079172 Comment: [facility]
[2019-08-21] MEDS: Albuterol 2.5 MG/3 ML NEB.SOL* (0.083%) INH SCH ×3 (02:25→14:05)
[2019-08-21] MEDS: SPIRIVA Respimat* (tiotropium) 2.5 mcg/inh Inhaler INH SCH (07:11)
[2019-08-21] MEDS: Mometasone/Formoter 200/5 MDI INH SCH ×2 (07:11→20:06)
[2019-08-21] MEDS: Tamsulosin CAP* 0.4 MG PO SCH (08:04)
[2019-08-21] MEDS: Aspirin EC TAB* 81 MG TAB.EC PO SCH (08:04)
[2019-08-21] MEDS: Atenolol TAB* 25 MG PO SCH (08:05)
[2019-08-21] MEDS: amLODIPine TAB* 5 MG PO SCH (08:06)
[2019-08-21] MEDS: Cyanocobalamin TAB* 500 MCG PO SCH (08:06)
[2019-08-21] MEDS: cefTRIAXone(*) 1 GM in NS 0.9% 50 ML* 50 ML IVPB SCH (08:06)
[2019-08-21] MEDS ORDERED: predniSONE TAB* 20 MG PO SCH (09:00)
[2019-08-21] MEDS: ROFLUMILAST 500 MCG PO SCH (10:32)
[2019-08-21] MEDS: Enoxaparin(*) 40 MG/0.4 ML SYR SUBCUT SCH (10:32)
--- NOTE | 2019-08-21 13:44 | CONSULT ---
Palliative / Hospice Consult Ordering Provider: Nick Roman - PCP-Casie Referal Reason: Goals of care/ no bowel meds/no narcotics - Subjective Code Status: Full Code-Needs Follow Up Advance Directives Location: With Family - History or Present Illness History or Present Illness: 84yo male with endstage COPD presents to ER with SOB. PMH is significant for COPD on 2 liters O2 at home, chronic hypoxic respiratory failure, HTN, BPH, mohr 's palsy and h/o pulmonary nodules. PSHx for 20yrs, lives with daughter Tasha who is his SDM for the last 5 yrs, has 2 children, ex smoker, rare etoh, no drug use, retired [employer] employee. Studies CXR ?RML infiltrate, atelectasis , small pleural effusion bilat, EKG sinus tach, Chest CT advanced emphysema changes and pulmonary nodule no change, worsening interstitial lung disease since 01/2017, H/H 12.6/38, BUN/Cr 28/.65, egfr 116.8, alb 3.8 and BC no growth. Pt admitted with RML pneumonia, acute on chronic respiratory failure with hypoxia and COPD exacerbation. Pt 01/12 ER visit for breathing issues, 01/19-01/20 COPD, 02/10-01/12 COPD and 03/24-03/25 for SOB. All history is from pt, daughter and medical record. Lab Values: Laboratory Last Values WBC 12.1 10^3/uL (3.5-10.8) H 08/17/19 04:41 RBC 4.45 10^6 /uL (4.18-5.48) 08/17/19 04:41 Hgb 12.6 g/dL (14.0-18.0) L 08/17/19 04:41 Hct 38 % (42-52) L 08/17/19 04:41 MCV 86 fL (80-94) 08/17/19 04:41 MCH 29 pg (27-31) 08/17/19 04:41 MCHC 33 g/dL (31-36) 08/17/19 04:41 RDW 16 % (10-15) H 08/17/19 04:41 Plt Count 160 10^3/uL (150-450) 08/17/19 04:41 MPV 9.8 fL (7.4-10.4) 08/17/19 04:41 Neut % (Auto) 86.7 % 08/17/19 04:41 Lymph % (Auto) 4.1 % 08/17/19 04:41 [place] % (Auto) 9.1 % 08/17/19 04:41 Eos % (Auto) 0.0 % 08/17/19 04:41 Baso % (Auto) 0.1 % 08/17/19 04:41 Absolute Neuts (auto) 10.5 10^3/ul (1.5-7.7) H 08/17/19 04:41 Absolute Lymphs (auto) 0.5 10^3/ul (1.0-4.8) L 08/17/19 04:41 Absolute Monos (auto) 1.1 10^3/ul (0-0.8) H 08/17/19 04:41 Absolute Eos (auto) 0.0 10^3/ul (0-0.6) 08/17/19 04:41 Absolute Basos (auto) 0.0 10^3/ul (0-0.2) 08/17/19 04:41 Absolute Nucleated RBC 0.0 10^3/ul 08/17/19 04:41 Nucleated RBC % 0.0 08/17/19 04:41 Sodium 142 mmol/L (135-145) 08/17/19 04:41 Potassium 4.0 mmol/L (3.5-5.0) 08/17/19 04:41 Chloride 108 mmol/L (101-111) 08/17/19 04:41 Carbon Dioxide 31 mmol/L (22-32) 08/17/19 04:41 Anion Gap 3 mmol/L (2-11) 08/17/19 04:41 BUN 28 mg/dL (6-24) H 08/17/19 04:41 Creatinine 0.65 mg/dL (0.67-1.17) L 08/17/19 04:41 Est GFR ( Amer) 141.3 (>60) 08/17/19 04:41 Est GFR (Non-Af Amer) 116.8 (>60) 08/17/19 04:41 BUN/Creatinine Ratio 43.1 (8-20) H 08/17/19 04:41 Glucose 137 mg/dL (70-100) H 08/17/19 04:41 Lactic Acid 1.8 mmol/L (0.5-2.0) 08/15/19 05:08 Calcium 9.0 mg/dL (8.6-10.3) 08/17/19 04:41 Total Bilirubin 1.20 mg/dL (0.2-1.0) H 08/15/19 05:08 AST 9 U/L (13-39) L 08/15/19 05:08 ALT 10 U/L (7-52) 08/15/19 05:08 Alkaline Phosphatase 66 U/L (34-104) 08/15/19 05:08 Troponin I 0.02 ng/mL (<0.04) 08/15/19 05:08 Total Protein 6.6 g/dL (6.4-8.9) 08/15/19 05:08 Albumin 3.8 g/dL (3.2-5.2) 08/15/19 05:08 Globulin 2.8 g/dL (2-4) 08/15/19 05:08 Albumin/Globulin Ratio 1.4 (1-3) 08/15/19 05:08 - Objective Active Medications: Acetaminophen (Tylenol Tab*) 650 mg PO Q4H PRN PRN Reason: MILD PAIN or TEMP > 100.4 Albuterol (Ventolin 2.5 Mg/3 Ml Neb.Digna*) 2.5 mg INH [id number]-AIFPA AWAKE [facility] Last Admin: 08/21/19 07:11 Dose: 2.5 mg Amlodipine Besylate (Norvasc Tab*) 5 mg PO DAILY [facility] Last Admin: 08/21/19 08:06 Dose: 5 mg Aspirin (Aspirin Ec Tab*) 81 mg PO DAILY [facility] Last Admin: 08/21/19 08:04 Dose: 81 mg Atenolol (Tenormin Tab*) 12.5 mg PO DAILY [facility] Last Admin: 08/21/19 08:05 Dose: 12.5 mg Cyanocobalamin (Vitamin B12 Tab*) 1,000 mcg PO DAILY [facility] Last Admin: 08/21/19 08:06 Dose: 1,000 mcg Enoxaparin Sodium (Lovenox(*)) 40 mg SUBCUT Q24H [facility] Last Admin: 08/21/19 10:32 Dose: 40 mg Guaifenesin/Dextromethorphan (Robitussin Dm*) 5 ml PO Q6H PRN PRN Reason: COUGH Last Admin: 08/19/19 22:20 Dose: 5 ml Ceftriaxone Sodium 1 gm/ (Sodium Chloride) 50 mls @ 100 mls/hr IVPB Q24H [facility] Last Admin: 08/21/19 08:06 Dose: 100 mls/hr Mometasone Furoate/Formoterol Fumar (Dulera 200/5 Mdi*) 2 puff INH BID [facility] Last Admin: 08/21/19 07:11 Dose: 2 puff Ondansetron HCl (Zofran Inj*) 4 mg IV Q6H PRN PRN Reason: NAUSEA/VOMITING Prednisone (Deltasone Tab*) 50 mg PO DAILY [facility] Last Admin: 08/21/19 08:03 Dose: 50 mg Tamsulosin HCl (Flomax Cap*) 0.4 mg PO DAILY [facility] Last Admin: 08/21/19 08:04 Dose: 0.4 mg Throat Lozenges (Chloraseptic Franecs*) 1 frances PO Q6H PRN PRN Reason: SORE THROAT Last Admin: 08/16/19 16:54 Dose: 1 frances Tiotropium Gilliam (Spiriva Respimat 2.5 Mcg) 2 puff INH DAILY [facility] Last Admin: 08/21/19 07:11 Dose: 2 puff Vital Signs: Vital Signs: Temp Pulse Resp BP Pulse Ox 97.7 F 68 24 126/65 96 08/21/19 11:15 08/21/19 11:15 08/21/19 11:15 08/21/19 11:15 08/21/19 11:15 Patient Weight: Weight 62.732 kg Intake and Output: Intake & Output 08/19/19 08/20/19 08/21/19 08/22/19 06:59 06:59 06:59 06:59 Intake Total 1260 430 990 360 Output Total 900 200 0 Balance 360 230 990 360 Intake: IVPB 260 260 50 ABX - AZITHROMYCIN 260 260 ABX - CEFTRIAXONE 50 Oral 1000 170 940 360 Output: Urine 900 200 0 Other: # Bowel Movements 1 ADLs: Meal Record Start: 08/15/19 10: 39 Freq: DAILY@0900,1400,1800 Status: Active Protocol: Created 08/15/19 10:39 System (Rec: 11/16/19 10:39 System MED-M27) Document 08/15/19 14:00 [id number] (Rec: 08/15/19 14:39 [id number] TELE-C05) Document 08/15/19 18:00 HCB2379 (Rec: 08/15/19 18:13 [id number] TELE-C05) Document 08/16/19 09:00 GIK0000 (Rec: 08/16/19 09:02 [id number] TELE-C13) Document 08/16/19 13:09 [id number] (Rec: 08/16/19 13:10 [id number] TELE-C13) Document 08/16/19 18:00 FCE2039 (Rec: 08/16/19 19:43 [id number] TELE-C13) Document 08/17/19 09:00 KTT4201 (Rec: 08/17/19 09:17 [id number] TELE-C13) Document 08/17/19 13:03 VUF7600 (Rec: 08/17/19 13:03 [id number] TELE-C13) Document 08/17/19 18:00 DXQ1863 (Rec: 08/17/19 22:48 DSO2265 TELE-C13) Document 08/18/19 09:00 NKE7538 (Rec: 08/18/19 14:45 [id number] MED-M01) Document 08/18/19 14:00 TUD9731 (Rec: 08/18/19 14:45 FOT2455 MED-M01) Document 08/18/19 18:00 CUU2048 (Rec: 08/18/19 18:32 IPL2024 TELE-C01) Document 08/19/19 09:00 CNW3991 (Rec: 08/19/19 10:20 [id number] MED-M02) Document 08/19/19 13:52 YLP8636 (Rec: 08/19/19 13:52 [id number] TELE-C05) Document 08/19/19 18:00 BWC8668 (Rec: 08/19/19 21:25 PAF8424 TELE-C35) Document 08/20/19 09:00 LDB7554 (Rec: 08/20/19 10:47 KCZ7947 TELE-C09) Document 08/20/19 14:00 IPH7766 (Rec: 08/20/19 14:12 SQF8104 TELE-C10) Document 08/20/19 18:00 KOQ0741 (Rec: 08/20/19 18:52 EBL4401 TELE-C13) Document 08/21/19 09:00 QJN0275 (Rec: 08/21/19 10:57 FAE5815 TELE-C11) Intake and Output Start: 08/15/19 04: 10 Freq: Status: Active Protocol: Created 08/15/19 04:10 System (Rec: 08/15/19 04:10 System EDRM-C03) Intake and Output Start: 08/15/19 10: 39 Freq: DAILY@0600,1400,2200 Status: Active Protocol: Created 08/15/19 10:39 System (Rec: 08/15/19 10:39 System MED-M27) Document 08/15/19 14:00 [id number] (Rec: 08/15/19 14:39 EJB2212 TELE-C05) Document 08/15/19 21:51 FER0767 (Rec: 08/15/19 21:52 [id number] TELE-C05) Document 08/16/19 06:00 JYP0905 (Rec: 08/16/19 06:04 [id number] MED-M27) Document 08/16/19 12:01 [id number] (Rec: 08/16/19 12:01 FMY9008 TELE-C13) Document 08/16/19 19:45 XDL0109 (Rec: 08/16/19 19:45 OIQ0668 TELE-C13) Document 08/17/19 06:00 ZFF1198 (Rec: 08/17/19 06:23 WUA9712 TELE-C01) Document 08/17/19 14:00 BEW9205 (Rec: 08/17/19 14:01 NEL9092 TELE-C08) Document 08/17/19 22:00 NDC7780 (Rec: 08/17/19 22:49 PTI0581 TELE-C13) Document 08/18/19 06:00 AHK2411 (Rec: 08/18/19 06:09 LJX7843 TELE-C10) Document 08/18/19 14:00 FMP4092 (Rec: 08/18/19 14:46 IVS8868 MED-M01) Document 08/18/19 22:00 IYJ8538 (Rec: 08/18/19 22:16 VBA3198 TELE-C32) Document 08/19/19 06:00 DFO3956 (Rec: 08/19/19 07:35 [id number] TELE-C11) Document 08/19/19 14:00 AYM2389 (Rec: 08/19/19 14:53 BLV1551 TELE-C01) Document 08/19/19 22:00 VBS3945 (Rec: 08/19/19 22:38 RMM0752 TELE-C01) Document 08/20/19 06:00 KFP5769 (Rec: 08/20/19 06:13 MDA7957 TELE-C01) Document 08/20/19 14:00 CTZ1682 (Rec: 08/20/19 14:12 XCI2932 TELE-C10) Document 08/20/19 22:00 MRM7764 (Rec: 08/20/19 22:24 GAC7561 TELE-C13) Document 08/21/19 05:45 CCP1426 (Rec: 08/21/19 05:46 FIC1857 TELE-C10) Eyes: No Scleral Icterus, - - EOMI Ears/Nose/Mouth/Throat: Clear Oropharnyx, Mucous Membranes Moist Neck: NL Appearance and Movements; NL JVP, Trachea Midline Cardiovascular: NL Sounds; No Murmurs; No JVD, No Edema Respiratory: - - poor air movement Abdominal: NL Sounds; No Tenderness; No Distention Extremities: No Edema, - - clubbing Neurological: Alert and Oriented x 3 - Assessment Assessment: 84 yo male with end stage COPD admitted with pneumonia, acute on chronic respiratory failure and COPD exacerbation - Plan Consult Plan (MU): Palliative Plan: Long discussion with pt about goals of care. Family had met with Dr Roman yesterday about overall health status. Pt understands his breathing is getting worse and he will from his COPD. He watched his 20yrs ago from COPD he said she suffered because there were not as many respiratory drugs. In the end she in her sleep. He has been living with his daughter for the last 5yrs. Pt and family did agree with PATH referral. I also gave pt brochure and information on hospice. In addition I discussed [facility]OL[facility] form with pt and filled out his choices but I want him to discuss it with his family before signing the form. I also called his daughter Tasha and explained everything we discussed. KPS 60%, PPS 60% - Time On Unit Date of Evaluation: 08/21/19 Hospice Consult Time in: 13:00 Hospice Consult Time Out: 14:00 Hospice Consult Time Total: 60 > 50% of Time Spend In Counseling or Coordinating Care: Yes
[2019-08-21 15:53] VITALS: BP 130/67
--- NOTE | 2019-08-21 16:18 | DS ---
CC: Dr. Maurice Jason DISCHARGE SUMMARY: DATE OF ADMISSION: DATE OF DISCHARGE: PRIMARY CARE PROVIDER: Dr. Maurice Jason. FINAL DISCHARGE DIAGNOSES: 1. Chronic obstructive pulmonary disease exacerbation. 2. Benign prostatic hypertrophy. 3. Hypertension. HOSPITAL COURSE: This is an 84-year-old male who presented to the emergency room on 08/15/19 for benedict rtness of breath with underlying known history of COPD, on home O2, frequent hospitalization and recu rrent dependence on steroid taper therapy. The patient developed shortness of breath ambulating from the bathroom and he was trying to manage it at home. After 2 days, he finally came into the ER due t o progressive dyspnea. He has also been doing pulmonary rehab. However, his symptoms got so severe, he was not able to tend to it and finally came into the ER. In the emergency room, he had a white co unt of 19,000. Chest x-ray shows concern for right middle lobe pneumonia and bilateral pleural effus ions and the patient was admitted to medicine service for further evaluation. The patient was starte d on IV ceftriaxone and azithromycin, started on IV Solu-Medrol. He was requiring oxygen up to 4 L. The patient was maintained on the hospitalist service. He had a CT of the chest, which shows advanc ed COPD changes, some pulmonary nodules, minimally changed from 2017 with some subpleural lung base i nterlobular septal thickening consistent with interstitial lung disease. The patient was seen by me on 08/18/19. At that time, he was still on Rocephin and azithromycin and chronic steroid at 60 mg. H e was still requiring oxygen up to 4 L and was able to guide his therapy by titrating his oxygen down from 4 to 3, down to 2.5 L. I kept him for additional few days given his underlying severe COPD. I had a family meeting on 08/20/19 at night with the patient, daughters, and granddaughters. I explai dany that his underlying diagnosis with his COPD which is quite severe. I do see that he had a pulmon elizabeth function test in March as an outpatient. His FEV1 is 41% predicted, 1.0 L pre with minimal improv ement to 1.08 post, suggestive of severe COPD. He probably most likely will remain oxygen dependent and will probably fail if he was to completely taper off the steroid, but nonetheless he deserves a t rial. However, I did offer to the patient palliative care and PATH care given his underlying COPD. Nikolai thompson met with Dr. Rowan. They offered him palliative care and they are at this time still undecided, b ut they agreed for the PATH care. He is a very high risk of readmission due to his severe COPD under lying diagnosis. Best optimal course to have close followup with PCP and ongoing pulmonary toileting and further followup and referral for palliative care would be ideal. PHYSICAL EXAMINATION: Vital Signs: His temperature is 97.7, pulse 68, respiratory rate 24, satting 96%, blood pressure 126/65. Generally, he is awake, alert, oriented. Head and Neck: Normocephalic, atraumatic. Lungs: Coarse rhonchi, transmitted upper airway breath sounds. Cardiovascular: S1, S 2. Regular rate and rhythm. Abdomen: Positive bowel sounds. Soft, nontender, nondistended. Extrem ities: No pedal edema. DIAGNOSTIC STUDIES/LAB DATA: He had multiple CBCs starting with white count of 19,000 down to 12.1 o n 08/17/19. Chemistry fairly unremarkable. Diagnostic imaging: The patient had chest x-ray on 08/15/19, reveals potential infiltrate at the rig ht middle lobe suggestive of pneumonia and atelectasis. This was followed by CT of the chest on 08/16/19, which reveals advanced emphysema of the lung. Some pulmonary nodules measuring 9 mm in the middle lobe which was previously 9 mm and 9 mm pleural based nodule, previously 8 mm. No infiltrate was noted. EKG that was done on admission in the emergency room, sinus tachycardia with a rate of 114. DISCHARGE MEDICATIONS: 1. Vantin 200 mg b.i.d. for 5 more days. 2. He completed azithromycin 5 days. 3. Mucinex p.r.n. 4. Prednisone very slow taper given his severe COPD. He will be taken down from 60 down to 50 mg fo r 3 days, followed by 40 for 3 days, then 30 mg for 3 days, 20 mg for 3 days, 10 mg for 3 days and 5 mg for 4 days, then stop. 5. Continue vitamin B12. 6. Vitamin D. 7. Amlodipine 5 daily. 8. Aspirin 81 mg daily. 9. Spiriva 1 capsule daily. 10. Albuterol nebulizer and inhaler p.r.n. 11. Tamsulosin 0.4 daily. 12. Meclizine p.r.n. 13. Advair 500/50 one puff twice a day. 14. Atenolol 12.5 daily. 15. Omeprazole 20 daily. DISCHARGE INSTRUCTIONS: 1. Follow up with primary care in 1 to 2 weeks. 2. Referral for PATH care and further discussion with primary and visiting nurse service for palliat leonardo care, end-stage COPD and end of life care. He remains full code with further discussion to be kyung perez. DISCHARGE DISPOSITION: Home. DISCHARGE CONDITION: Stable and improved. [id number]/CPS #: [id number]
== END 2019-08-21 16:31 | disposition hospice, home (50) | DRG 193 ==
LOC: ED 03:56 → MEDTELE 09:43
PROVIDERS: ADMIT Internal Medicine; ATTEND Internal Medicine
DX: J18.9 Pneumonia, unspecified organism (principal); J96.21 Acute and chronic respiratory failure with hypoxia; R91.8 Other nonspecific abnormal finding of lung field; K21.9 Gastro-esophageal reflux disease without esophagitis; J43.9 Emphysema, unspecified; I10 Essential (primary) hypertension; N40.0 Benign prostatic hyperplasia without lower urinary tract symptoms; Z28.21 Immunization not carried out because of patient refusal; Z87.01 Personal history of pneumonia (recurrent); Z91.012 Allergy to eggs; Z85.828 Personal history of other malignant neoplasm of skin; Z87.891 Personal history of nicotine dependence; Z99.81 Dependence on supplemental oxygen; Z91.011 Allergy to milk products; Z79.82 Long term (current) use of aspirin; Z79.899 Other long term (current) drug therapy
CPT/HCPCS: 36415; 71046; 71260; 80048; 80053; 83605; 84484; 85025; 87040; 87899; 93005; 94640; 96365; 96375; 99285; A9270-GY; G8978-GP-CJ; G8979-GP-CH; G8987-GO-CI; G8988-GO-CI; G8989-GO-CI; J0456; J0696; J1650; J2930; J3535; J7512; Q9967